=== PATIENT | male | born 1930 | race Caucasian/White ===

== ENCOUNTER 2016-09-30 13:00 | Outpatient (RCR) | payer MEDICARE, OTHER ==
--- OUTSIDE RECORDS SUMMARY | 2016-07-08 12:50 | XMS REPORT | Continuity of Care Document ---
Author Author [facility] Organization [facility] Address Unknown Phone Unavailable Care Team Providers Care Wrapper Stripper Name Role Phone Alan Ruvalcaba PCP [phone] Source Comments Some departments are not documenting in the electronic medical record. If you do not see the information that you expected, contact Release of Information in the Health Information Management department at [phone] for further assistance in locating additional records.[facility] Active Allergies and Adverse Reactions Not on File Current Medications Not on file Active Problems Not on file Social History Tobacco Use Types Packs/Day Years Used Date Never Assessed Plan of Care Health Maintenance Due Date Last Done Comments Physical (Comprehensive) 01/09/1935 Exam Pertussis Vaccine 01/09/1939 Tetanus Vaccine 01/09/1945 Shingles Vaccine 1988 Prevnar/Pneumovax (#1) 01/09/1993 Influenza Vaccine 04/24/2015 Results from Last 3 Months Not on file
== END 2016-10-06 | disposition home or self-care (01) ==
LOC: PULM 13:00
PROVIDERS: ATTEND Internal Medicine Interventional Cardiology
DX: J43.2 Centrilobular emphysema (principal); J96.10 Chronic respiratory failure, unspecified whether with hypoxia or hypercapnia; I27.2 Other secondary pulmonary hypertension

== ENCOUNTER 2017-03-10 09:58 | Inpatient (IN) | payer MEDICARE, OTHER ==
[~2017-03-10] VITALS: Ht 170.2 cm; Wt 101.9 kg
--- NOTE | 2017-03-11 15:09 | Physical Therapy Evaluation ---
PT Evaluation-General Medical Diagnosis Admission Date Mar 11, 2017 at 11:30 Medical Diagnosis: kyphoplasty Onset Date: Mar 06, 2017 Therapy Diagnosis Therapy Diagnosis: impaired mobility, strength, endurance Referral Physician: Pete Reason for Referral: Evaluation/Treatment Medical History Additional Medical History kyphoplasty, arthritis, ileus, emphysema, pulmonary hypertension Current History Patient had a spinal compression tx from a fall and had to get a kyphoplasty Reviewed History: Yes Social History Home: Single Level Current Living Status: Spouse Entry Into Home: Stairs With Railing PT Steps Into Home: 2 Prior/Core FIM Prior Level of Function Functional [place] Measure 0=Not Assessed/NA 4=Minimal Assistance 1=Total Assistance 5=Supervision or Setup 2=Maximal Assistance 6=Modified [place] 3=Moderate Assistance 7=Complete [place] Bed Mobility: 6 Transfers (B,C,W/C) (FIM): 6 Gait: 6 Patient used a rolling walker on occasion, outside of the home. PT Evaluation-Current Subjective Patient in bed pre tx, agrees to PT, has pain of 8/10 in his back. Patient will be 7/10 today. He has already had PT twice at another facility, has significant pain, and doesn't think he will be able to complete 3 hours of therapy. He also has emphysema, gets SOB easily (on O2), fatigues very quickly , and a pulse oximeter will not read his O2. Pt/Family Goals "to be able to do everything i need to do at home" Objective Patient Orientation: Person, Place, Situation Attachments: Oxygen 3L of O2 nasal canula ROM/Strength ROM Lower Extremities WNL except he has had a fusion in his left ankle Strenght Lower Extremities 4+/5 gross bilateral lower extremities except for hip flexion bilaterally 3+/5 Integumentary/Posture Bowel Incontinence: No Bladder Incontinence: No Neuromuscular (Tone, Coordination, Reflexes) WNL Sensory Vision: Functional Hearing: Impaired Sensation Right Lower Extremit: Intact Sensation Left Lower Extremity: Intact Sensation Lower Extremities Patient says he has had some burning pain in both legs. Transfers Functional [place] Measure 0=Not Assessed/NA 4=Minimal Assistance 1=Total Assistance 5=Supervision or Setup 2=Maximal Assistance 6=Modified [place] 3=Moderate Assistance 7=Complete IndependenceIRFPAI Quality Coding Scale 6 Independent with activity with or without an assistive device 5 Patient requires set up or clean up by helper. Patient completes activity by themselves 4 Supervision or touching assist (CGA). [place] provide cues , steadying assist 3 The helper provides less than half the effort to complete the activity 2 The helper provides more than half the effort to complete the activity 1 Dependent. The helper does all the effort to complete an activity 7 Patient refused to complete or attempt activity 9 The patient did not perform the activity before the current illness or injury 88 Not attempted due to Medical conditions or safety concerns Transfers (B, C, W/C) (FIM): 3 Scootin Rollin Roll Left to Right (QC): 3 Supine to/from Sit: 3 Sit to/from Stand: 4 Sit to Lying (QC): 2 Lying to Sitting/Side of Bed(Q: 2 Sit to Stand (QC): 4 Patient performs rolling and scooting with min assist, supine <-> sit with mod assist, and sit to stand with min assist. He needs cues for safety and hand placement. Patient does not have a back brace he needs to use. Gait Does the Patient Walk?: Yes Mode of Locomotion: Walk Anticipated Mode of Locomotion: Walk Gait (FIM): 4 Walk 10 feet (QC): 4 Walk 50 ft with 2 Turns(QC): 4 Walk 150 ft (QC): 4 Walking 10ft/uneven surface-QC: 4 Distance: 150' Gait Level of Assist: 4 Gait Persons Needed: 1 Gait Assistive Device: FWW Comments/Gait Description Patient can ambulate 150' with a rolling walker with CGA, including 50' with at least 2 turns of 90 degrees, and 10' over an uneven surface. Patient was very fatigued and fairly SOB after ambulating 150'. He needed to sit and catch his breath, the pulse oximeter would not read his O2 levels at that time. Wheelchair Training Does the Pt Use a Wheelchair?: No Stairs Stairs (FIM): 1 #of Steps: 1 Level of Assist: 4 1 Step (curb) (QC): 4 4 Steps (QC): 11 Assistive Device: Walker 12 Steps (QC): 88 Patient can go up and down 1 step x2 with a rolling walker with CGA. He needed cues for safety and foot placement, and was very SOB after performing that. Balance Sitting Static: Good Sitting Dynamic: Good Standing Static: Good Standing Dynamic: Good Picking up an Object (QC): 88 Assessment/Needs Patient has impaired mobility, strength, endurance post kyphoplasty after spinal compression fracture. He has some weakness in his legs but very poor endurance and gets SOB easily. Patient needs frequent rest breaks to catch his breath and cues to purse lip breathe. Rehab Potential: Fair PT Short Term Goals Short Term Goals Time Frame: Mar 18, 2017 Transfers (B,C,W/C) (FIM): 4 Gait (FIM): 5 Gait Distance Comment: 200' Gait Level of Assist: 5 Gait Assistive Device: FWW PT Senior Care Goals Weight Reduction Specialist Goals PT Weight Reduction Specialist Goals Time Frame: Apr 01, 2017 Transfers (B,C,W/C) (FIM): 6 Sit to Lying (QC): 6 Lying-Sitting on Side/Bed(QC): 6 Sit to Stand (QC): 6 Rollin Roll Left to Right (QC): 6 Chair/Ciw-qg-Mwzmj Xfer(QC): 6 Car Transfer (QC): 5 Gait (FIM): 6 Distance: 300' Walk 10 feet (QC): 6 Walk 10ft-Uneven Surface(QC): 6 Walk 50ft with 2 Turns (QC): 6 Walk 150 ft (QC): 6 Gait Assistive Device: FWW Stairs (FIM): 5 # of Steps: 12 1 Step (curb) (QC): 4 4 Steps (QC): 4 12 Steps (QC): 4 Stairs Level Of Assist: 5 PT Plan Problem List Problem List: Activity Tolerance, Functional Strength, Safety, Balance, Gait, Transfer, Bed Mobility, ROM Treatment/Plan Treatment Plan: Continue Plan of Care Treatment Plan: Bed Mobility, Education, Functional Activity Jose Guadalupe, Functional Strength, Group Therapy, Gait, Safety, Therapeutic Exercise, Transfers Treatment Duration: Apr 01, 2017 Frequency: At least 5-7 days/Wk (IRF) Estimated Hrs Per Day: 1.5 hours per day Patient and/or Family Agrees t: Yes Safety Risks/Education Patient Education: Gait Training, Transfer Techniques, Steps, Correct Positioning, Safety Issues Teaching Recipient: Patient Teaching Methods: Demonstration, Discussion Response to Teaching: Reinforcement Needed taught log roll Discharge Recommendations Plan Patient will perform bed mobility and transfer training, balance and endurance training, functional strengthening, stair training, gait training, and education , to improve functional mobility and independence at home. Therapy D/C Recommendations: Home w/ Family Support Time/GCodes Time In: 1400 Time Out: 1500 Total Billed Treatment Time: 60 Total Billed Treatment 1 visit GT 30' FA 15' EVL 15' SHAI KIM PT Mar 11, 2017 15:09
--- NOTE | 2017-03-11 15:44 | Occupational Therapy Eval ---
OT Evaluation-General/PLF Medical Diagnosis Admission Date Mar 11, 2017 at 11:30 Medical Diagnosis: kyphoplasty Onset Date: Mar 02, 2017 Therapy Diagnosis Therapy Diagnosis: decr self care, weakness, decr activ tolerance, decr funct mobility Precautions Precautions/Isolations: Standard Precautions Referral Physician: Pete Referral Reason: Evaluation/Treatment Medical History Pertinent Medical History: Atrial Fib, HTN, Neuropathy (in feet, pt report), OA Additional Medical History Pulmonary hypertension, emphysema, chronic respiratory failure with hypoxia, O2 use 3-5 L/min, CPAP, chronic DJD, MAURA with Bipap, spinal stenosis and spondylosis. Bilat TKA, pulmonary fibrosis Current History Fell 02-28-17 and admitted to [facility] on 03-02. Found to have compression fractures L1, L2 and L3. Had intractable back pain. Kyphoplasty (no back brace). Also developed ileus and had NG tube - resolved but has loose stools Social History Home: Single Level Current Living Status: Spouse Entry Into Home: Stairs With Railing Steps Into Home: 2 ADL-Prior Level of Function ADL PLOF Comments Pt reported that he has been able to manage his basic ADLS until just recently. He gave up driving after he blacked out a couple of times. He no longer does yard work. 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 Pain rated 8/10 but not described. Pt was very fatigued and said that he had already had therapy twice today. Appearance Alert, cooperative, very fatigued Mental Status/Objective Patient Orientation: Person, Place, Time, Situation Attachments: Oxygen Current Glasses/Contacts: Yes Hearing Aids: Yes Dentures/Partials: No Hand Dominance: Right Upper Extremity ROM Grossly WFL bilat Upper Extremity Coordination WFL bilat Upper Extremity Sensation Pt reported no neuropathy in UEs Upper Extremity Strength Grossly 4/5 bilat ADL-Treatment ADL-Current Pt needed min assist and skilled cues to get up from chair with arms. Walked with CGA, FWW from gym to room and needed to sit on BSC to recover breath. OT managing portable O2 tank. Pulse ox would not register but pt required frequent recovery breaks from SOA. O2 at 3L/min throughout treatment. Functional [place] Measure 0=Not Assessed/NA 4=Minimal Assistance 1=Total Assistance 5=Supervision or Setup 2=Maximal Assistance 6=Modified [place] 3=Moderate Assistance 7=Complete IndependenceIRFPAI Quality Coding Scale 6 Independent with activity with or without an assistive device 5 Patient requires set up or clean up by helper. Patient completes activity by themselves 4 Supervision or touching assist (CGA). [place] provide cues , steadying assist 3 The helper provides less than half the effort to complete the activity 2 The helper provides more than half the effort to complete the activity 1 Dependent. The helper does all the effort to complete an activity 7 Patient refused to complete or attempt activity 9 The patient did not perform the activity before the current illness or injury 88 Not attempted due to Medical conditions or safety concerns Toileting (FIM): 3 (Manages clothing but not hygiene. BSC over toilet) Toileting Hygiene (QC): 3 Transfers (B, C, W/C) (FIM): 4 (CGA, FWW) Toilet/Commode Transfer (FIM): 4 (CGA, BSC over toilet, FWW. Cues for hand placement. Would have difficulty getting off tall toilet because bathroom has grab bar only on R side) Toilet Transfer (QC): 4 Other Treatments Pt left up in recliner, O2 in place, all needs met. Education OT Patient Education: Purpose of tx/functional activities, Rehab process, Safety issues, Transfer techniques Teaching Recipient: Patient Teaching Methods: Demonstration, Discussion Response to Teaching: Verbalize Understanding, Return Demonstration, Reinforcement Needed OT Short Term Goals Short Term Goals Time Frame: Mar 20, 2017 Bathing(FIM): 5 Toilet/Commode Transfer(FIM): 5 Shower Transfer(FIM): 5 Additional Short Term Goals: 2-Verbalize Understanding, 3-ImproveStrength/Jose Guadalupe 1=Demonstrate adherence to instructed precautions during ADL tasks. 2=Patient will verbalize/demonstrate understanding of assistive devices/ modifications for ADL. 3=Patient will improve strength/tolerance for activity to enable patient to perform ADL's. OT Local Combination Truck Driver Goals Fdc Goals Time Frame: Apr 03, 2017 Eating (FIM): 7 Eating (QC): 6 Groomin Oral Hygiene (QC): 6 Bathing(FIM): 6 Shower/Bathe Self (QC): 6 Upper Body Dressing(FIM): 6 Upper Body Dressing (QC): 6 Lower Body Dressing(FIM): 6 Lower Body Dressing (QC): 6 On/Off Footwear (QC): 6 Toileting(FIM): 6 Toileting Hygiene (QC): 6 Toilet/Commode Transfer(FIM): 6 Toilet/Commode Transfer (QC): 6 Shower Transfer(FIM): 6 Additional Goals: 2-Verbalize Understanding, 3-ImproveStrength/Jose Guadalupe 1=Demonstrate adherence to instructed precautions during ADL tasks. 2=Patient will verbalize/demonstrate understanding of assistive devices/ modifications for ADL. 3=Patient will improve strength/tolerance for activity to enable patient to perform ADL's. OT Education/Plan Problem List/Assessment Assessment: Decreased Activ Tolerance, Decreased UE Strength, Dependent Transfers, Impaired Bed Mobility, Impaired Self-Care Skills Pt would benefit from skilled OT to increase his independence in basic self care to allow him to safely return home with and to decrease caregiver burden Discharge Recommendations Plan/Recommendations: Continue POC Barriers to Progress decreased activity tolerance, frequent recovery periods, chronic O2 use, peripheral neuropathy Target Placement home Treatment Plan/Plan of Care Treatment,Training & Education: Yes Patient would benefit from OT for education, treatment and training to promote independence in ADL's, mobility, safety and/or upper extremity function for ADL' s. Plan of Care: ADL Retraining, Functional Mobility, Group Exercise/Act as Ind ( education, exercise, activity tolerance, functional activities, socialization), UE Funct Exercise/Act, UE Neuromus Re-Ed/Coord Treatment Duration: Apr 03, 2017 Frequency: Twice Daily (15 hours over 7 days) Estimated Hrs Per Day: 1.5 hours per day Agreement: Yes Rehab Potential: Fair Time/GCodes Start Time: 15:00 Stop Time: 15:30 Total Time Billed (hr/min): 30 Billed Treatment Time visit, 15 minutes evaluation moderate intensity, 15 minutes ADL DASIA DENNIS OT Mar 11, 2017 15:44
--- NOTE | 2017-03-11 15:49 | ST Cognitive Linguistic Eval ---
Speech Evaluation-General Medical Diagnosis Kyphoplasty Onset Date: Mar 06, 2017 Therapy Diagnosis Therapy Diagnosis: Cognitive Linguistic Skills Grossly WNL Referral Referring Physician: Dr. Sami Freeman Reason for Referral: Evaluation/Treatment Cognitive Evaluation Medical History Reviewed History: Yes Social History Home: Single Level (Two stairs to enter the home from the front and two stairs to enter the home through the back.) Current Living Status: Spouse Speech PLF-Current Status Prior Level of Function The patient denied challenges with speech, language, or cognition prior to or throughout his recent hospitalization. Patient's was present for the evaluation who stated the patient is performing at baseline function. Subjective The patient was recently admitted to [facility] following a kyphoplasty. The patient greeted the clinician appropriately and was agreeable to participation in the cognitive evaluation. Language Eval: Auditory Comprehends Simple Yes/No Ques: Functional Indent/Objects Multiple Sharp: Functional Ident/Pics in Multiple Sharp: Functional Follows 1-Step Commands: Functional Follows Complex Directions: Functional Follows General Conversations: Functional (Intermittent repetition was provided due to reduced hearing ability.) Language Eval: Verbal Language Completes Spontaneous Greeting: Functional Produces Auto, Serial Info: Functional Imitates Simple Words/Phrases: Functional Word Finding: Mild Requests Basic Needs: Functional States Basic Personal Info: Functional Cognitive Patient Orientation The patient was oriented to month, day of week, date, year, and location ( independently). Objective Cognitive Domain Attention: WNL Memory: Mild Problem Solving: Functional Objective Impression The patient demonstrated cognitive linguistic skills grossly within normal limits for age, as well as, appropriate for completion of ADL's. Communication/Social Cognition Comprehension: 5 Expression: 5 Social Interaction: 6 Problem Solvin Memory: 5 Speech Patient Assess Expression of Ideas/Wants: Exhibits (3) Understanding Vebal Content: Usually Understands (3) Brief Interview-Mental Status: Yes Repetition of Three Words: Three (3) Temporal Orientation: Year: Correct (3) Temporal Orientation: Month: Accurate within 5 days(2) Temporal Orientation: Day: Correct (1) Recall : Wear to say "Sock": Yes,after cueing (1) Recall : Color: Yes, no cue required (2) Recall : Bed: Yes, no cue required (2) Speech-Plan Treatment Plan Speech Therapy Treatment Plan: Discontinue ST Evaluation, only. Frequency: Modified Program (IRF) Estimated Hrs Per Day: .25 hour per day (The patient will not receive speech therapy at this time.) Rehab Potential: Fair Safety Risks/Education Teaching Recipient: Patient, Significant Other Teaching Methods: Discussion Response to Teaching: Verbalize Understanding Education Topics Provided: Results, Recommendations, Plan of Care Time Speech Therapy Time In: 15:30 Speech Therapy Time Out: 15:45 Total Billed Time: 15 Billed Treatment Time 1, LYNNE DE LEON Mar 11, 2017 15:49
[2017-03-11] MEDS: HYDROcodone/APAP 5 MG/325 MG (LORTAB) TAB PO PRN (16:04)
[2017-03-11 16:08] VITALS: BP 143/89
[2017-03-11] MEDS ORDERED: ASPI-983 PO (16:11)
[2017-03-11] MEDS ORDERED: MULT1TAB69 PO (16:11)
[2017-03-11] MEDS ORDERED: POTA10TA14 PO (16:11)
[2017-03-11] MEDS ORDERED: POLY17PO6 PO (16:11)
[2017-03-11] MEDS ORDERED: DIGO125T6 PO (16:11)
[2017-03-11] MEDS ORDERED: QUET25TA73 PO (16:11)
[2017-03-11] MEDS ORDERED: NF-ACI30T PO (16:11)
[2017-03-11] MEDS ORDERED: OMEG-160 PO (16:11)
[2017-03-11] MEDS ORDERED: DOCU100C37 PO (16:11)
[2017-03-11] MEDS ORDERED: HYDR-757 PO (16:11)
[2017-03-11] MEDS ORDERED: FURO40TA4 PO (16:11)
[2017-03-11] MEDS ORDERED: ATEN-156 PO (16:11)
[2017-03-11] MEDS ORDERED: MELO7.5T46 PO (16:11)
[2017-03-11] MEDS: OMEGA 3 (FISH OIL) 1000 MG CAP PO SCH (16:12)
[2017-03-11] MEDS ORDERED: PRD10T PO (16:41)
[2017-03-11] MEDS ORDERED: FUROSEMIDE 40 MG (LASIX) TAB PO SCH (17:00)
[2017-03-11] MEDS: QUEtiapine 25 MG (SEROquel) TAB IMMEDIATE RELEASE PO SCH (20:23)
[2017-03-11] MEDS: DOCUSATE SODIUM 100 MG (COLACE) CAP PO SCH (22:13)
[2017-03-11] MEDS: POLYETHYLENE GLYCOL 17 GM (MIRALAX) PACK PO SCH (22:14)
[2017-03-12] MEDS: HYDROcodone/APAP 5 MG/325 MG (LORTAB) TAB PO PRN ×3 (05:24→16:25)
[2017-03-12 05:44] VITALS: BP 116/67
[2017-03-12 05:59] LABS: BASOPHILS % (AUTO) 1 % (0-10); EOSINOPHILS # (AUTO) 0.2 10^3/uL (0.0-0.3); EOSINOPHILS % (AUTO) 2 % (0-10); LYMPHOCYTES # (AUTO) 0.9 X 10^3 (1.0-4.0); LYMPHOCYTES % (AUTO) 12 % (12-44); MEAN CORPUSCULAR HEMOGLOBIN 31 PG (25-34); MEAN CORPUSCULAR HGB CONC 34 G/DL (32-36); MEAN CORPUSCULAR VOLUME 92 FL (80-99); MEAN PLATELET VOLUME 10.4 FL (7.4-10.4); MONOCYTES # (AUTO) 1.3 X 10^3 (0.0-1.0); MONOCYTES % (AUTO) 18 % (0-12); NEUTROPHILS # (AUTO) 4.8 X 10^3 (1.8-7.8); NEUTROPHILS % (AUTO) 67 % (42-75); PLATELET COUNT 278 10^3/uL (130-400); RED BLOOD COUNT 4.72 10^6/uL (4.35-5.85); RED CELL DISTRIBUTION WIDTH 16.6 % (10.0-14.5); WHITE BLOOD COUNT 7.2 10^3/uL (4.3-11.0)
[2017-03-12 06:16] LABS: ALANINE AMINOTRANSFERASE 21 U/L (0-55); ALBUMIN 3.8 GM/DL (3.2-4.5); ANION GAP 10 MMOL/L (5-14); ASPARTATE AMINO TRANSFERASE 20 U/L (5-34); BILIRUBIN,TOTAL 1.9 MG/DL (0.1-1.0); BLOOD UREA NITROGEN 14 MG/DL (7-18); BUN/CREATININE RATIO 18; CALCIUM 9.1 MG/DL (8.5-10.1); CARBON DIOXIDE 23 MMOL/L (21-32); CHLORIDE 106 MMOL/L (98-107); GFR ESTIMATED > 60; GLUCOSE 105 MG/DL (70-105); SODIUM 139 MMOL/L (135-145); TOTAL PROTEIN 6.3 GM/DL (6.4-8.2)
[2017-03-12] MEDS: MULTIVIT W/MINERALS TAB (THERAGRAN M) PO SCH (06:18)
[2017-03-12] MEDS: OMEGA 3 (FISH OIL) 1000 MG CAP PO SCH ×2 (06:18→16:21)
[2017-03-12] MEDS: PANTOPRAZOLE 20 MG TABLET (PROTONIX) PO SCH (06:19)
[2017-03-12] MEDS: predniSONE 10 MG TAB PO SCH (06:19)
[2017-03-12] MEDS: KCL 10 MEQ TAB (MICRO K) PO SCH (06:20)
--- NOTE | 2017-03-12 08:18 | Consultation ---
History of Present Illness History of Present Illness Patient Consulted On(isaías/time) 03/12/17 08:13 Time Seen by Provider: 08:05 History of Present Illness patient sent to rehabilitation from [facility] after falling at home. Patient has COPD and on oxygen. Patient fell over his tubing last Thursday and went forward and hit a chair and landed backwards. After that had back pain which did not go away. Patient has history of pulmonary hypertension and is on oxygen therapy 3-5 L continuous. Patient has history of atrial fibrillation and was on Coumadin. Spanish Speaking Nanny making decision whether to put him on blood thinner. Surgeries.. Bowel resection due to a ruptured polyp, appendectomy, both knees , left hip, and tonsils Allergies and Home Medications Allergies Coded Allergies: Benzodiazepines (Verified Adverse Reaction, Intermediate, 03/11/17) confusion midazolam (Verified Adverse Reaction, Intermediate, 03/11/17) confusionj Home Medications Aspirin 81 Mg Tablet.dr, 81 MG PO DAILY, (Reported) Atenolol 50 Mg Tablet, 50 MG PO DAILY, (Reported) Digoxin 125 Mcg Tablet, 125 MCG PO DAILY, (Reported) Docusate Sodium 100 Mg Capsule, 100 MG PO BID, (Reported) Furosemide 40 Mg Tablet, 40 MG PO BID, (Reported) Hydrocodone/Acetaminophen 1 Each Tablet, 1 TAB PO Q4H PRN for PAIN-MODERATE, ( Reported) Meloxicam 7.5 Mg Tablet, 7.5 MG PO DAILY, (Reported) Multivitamin 1 Each Tablet, 1 TAB PO DAILY, (Reported) [place]-3/Dha/Epa/Fish Oil 1 Each Capsule, 1,000 MG PO BID, (Reported) Polyethylene Glycol 3350 17 Gm Powd.pack, 17 GM PO DAILY, (Reported) Potassium Chloride 10 Meq Tab.er.prt, 10 MEQ PO DAILY, (Reported) Prednisone 10 Mg Tab, 10 MG PO Q48H, (Reported) Quetiapine Fumarate 25 Mg Tablet, 25 MG PO HS, (Reported) Rabeprazole Sodium 20 Mg Tablet.dr, 20 MG PO DAILY, (Reported) Past Uoeyhma-Elphoo-Obgbgt Hx Patient Social History Alcohol Use: Denies Use Recreational Drug Use: No Smoking Status: Former Smoker Recent Foreign Travel: No Contact w/Someone Who Travel: No Recent Infectious Disease Expo: No Recent Hopitalizations: Yes Physical Abuse Screen: No Sexual Abuse: No Immunizations Up To Date Date of Pneumonia Vaccine: Mar 11, 2014 Seasonal Allergies Seasonal Allergies: No Surgeries Surgeries: Bowel Surgery, Orthopedic, Tonsillectomy Respiratory Respiratory Disorders: Sleep Apnea, COPD, Emphysema Cardiovascular Cardiac Disorders: Atrial Fibrillation Musculoskeletal Musculoskeletal Disorders: Arthritis, Back Injury HEENT HEENT Disorders: Cataract Hearing Impairment: Hard of Hearing Blood Transfusions Adverse Reaction to a Blood Tr: No Review of Systems-General Constitutional: weakness EENTM: no symptoms reported Respiratory: no symptoms reported Cardiovascular: other (atrial fibrillation) Gastrointestinal: no symptoms reported Genitourinary: no symptoms reported Psychiatric/Neurological: No Symptoms Reported Physical Exam-General Problems Physical Exam Vital Signs Vital Sign - Last 12Hours 03/11/17 03/11/17 14:17 16:08 Temp 97.8 Pulse 83 Resp 20 B/P (MAP) 143/89 Pulse Ox 97 O2 Delivery Nasal Cannula O2 Flow Rate 3.00 Capillary Refill : General Appearance: WD/WN, no apparent distress, obese Eyes: Bilateral Eye Normal Inspection HEENT: normal ENT inspection Neck: full range of motion, normal inspection Respiratory: chest non-tender, no respiratory distress, no accessory muscle use , decreased breath sounds, other (cOPD) Cardiovascular: irregularly irregular, other (Atrial fibrillation) Assessment/Plan Assessment/Plan Admission Diagnosis/Plan compression fracture. Atrial fibrillation. COPD using oxygen L1 compression fracture . Clinical Quality Measures DVT/VTE Risk/Contraindication: Risk Factor Score Per Nursin RFS Level Per Nursing on Admit: 4+=Very High MIKO KELLY DO Mar 12, 2017 08:18
--- NOTE | 2017-03-12 08:33 | PM&R Post Admission Assessment ---
Post Admission Physician Asses The preadmission screen agrees with the post admission assessment that the patient is a good candidate for inpatient rehabilitation. The patient will have a comprehensive program of inpatient rehabilitation with a goal of maximizing level of functional independence prior to discharge home with spouse. The patient will have PT/OT ninety minutes per day, each discipline, five days a week for gait, strengthening, conditioning, balance, ADLs, any patient/family/caregiver training as necessary. Speech therapy to do cognitive assessment and treat as indicated. Rehabilitation nursing to assist with bowel, bladder, skin, wound care, medication administration, pain management. Manager Database to assist with discharge planning, community reentry. SCD's for DVT prophylaxis. He appears to be well motivated to participate in three hours of therapy a day. He should be able to tolerate three hours of therapy a day from a medical and surgical standpoint. He should benefit from the three hours of therapy a day. He has a reasonable discharge plan, reasonable discharge rehabilitation goals and a supportive family. He has various comorbidities that need to be closely monitored with medications and treatments adjusted on a daily basis as needed. These include: Pain management Chronic A FIB HTN Pulmonary fibrosis-02 dependent OA Barriers to discharge for this patient who had been independent prior to this are for him to be modified independent to supervision for ADLs and mobility skills prior to discharge home with spouse, so as to lessen the burden of the caregivers. Risks for this patient include: 1. Fall 2. Fracture 3. DVT 4. Pulmonary embolism 5. Wound infection 6. Skin breakdown 7. Contractures 8. Poorly controlled pain 9. Urinary retention 10. UTI 11. Respiratory infection 12. Aspiration 13. Resp failure 14. Poorly controlled A FIB 15. Poorly controlled HTN Estimated Length of Stay: 14 days Prognosis: Rehab prognosis appears good for goal of discharge home with spouse modified independent to supervision for ADLs and mobility skills. ROSI RODRIGES MD Mar 12, 2017 08:33
[2017-03-12] MEDS: MELOXICAM 7.5 MG (MOBIC) TABLET PO SCH (08:41)
[2017-03-12] MEDS: DIGOXIN 0.125 MG (LANOXIN) TAB PO SCH (08:42)
[2017-03-12] MEDS: ASPIRIN E.C. 81 MG (ECOTRIN) TAB PO SCH (08:42)
[2017-03-12] MEDS: FUROSEMIDE 40 MG (LASIX) TAB PO SCH (08:42)
[2017-03-12] MEDS: ATENOLOL 50 MG (TENORMIN) TAB PO SCH (08:42)
[2017-03-12] MEDS: DOCUSATE SODIUM 100 MG (COLACE) CAP PO SCH ×2 (08:43→16:21)
[2017-03-12 08:47] LABS: KETONES,URINE NEGATIVE (NEGATIVE); LEUKOCYTE ESTERASE ,URINE 1+ (NEGATIVE); NITRITE,URINE NEGATIVE (NEGATIVE); PH,URINE 5 (5-9); PROTEIN,URINE 2+ (NEGATIVE); UROBILINOGEN,URINE 4 MG/DL (NORMAL)
[2017-03-12] MEDS: ZINC OXIDE 16% OINT (BUTT PASTE) 113 GM TUBE TOP PRN (08:51)
[2017-03-12 09:18] LABS: BILIRUBIN,URINE 1+ (NEGATIVE); CALCIUM OXALATE CRYSTALS,UR MODERATE /LPF; SQUAMOUS EPITHELIAL CELL,UR 0-2 /HPF
--- NOTE | 2017-03-12 10:41 | HISTORY AND PHYSICAL ---
DATE OF ADMISSION: 03/11/2017 CHIEF COMPLAINT: Difficulty with walking. HISTORY OF PRESENT ILLNESS: The patient is an 87-year-old male who had been modified independent with a Rollator walker and living with his in [place], who fell at home and developed intractable back pain. He was assessed by his PCP Dr. العراقي and admitted to [facility] on 03/[address] Black after imaging studies revealed an L1 compression fracture. He underwent kyphoplasty for that. He had a decline in his functional independence due to this and he is now referred to Inpatient Rehabilitation Unit at [facility] so as to be closer to home. He is utilizing hydrocodone APAP p.r.n. for pain control. Currently he is mod assist for upper, transfers and min assist for ambulation short distances with a front wheel walker. To min to mod assist for bed mobility. He is modified independent for eating. Set up for grooming. Min assist for upper body dressing. Mod assist for lower body dressing and toileting. He reports having tripped over his O2 tether line at home causing his fall. PAST MEDICAL HISTORY: 1. Pulmonary fibrosis. 2. Pulmonary hypertension. 3. O2 dependence and MAURA on BiPAP at night. 4. Degenerative joint disease. 5. Hypertension. 6. Idiopathic peripheral neuropathy with numbness of feet. 7. Atrial fibrillation had been chronically anticoagulated with Dr. العراقي just recently discontinued due to fear for fall and weight. His adobe layer helper is at [facility]. PAST SURGICAL HISTORY: Kyphoplasty.Bilateral TKRS [facility] ALLERGIES: Intolerance to Versed and benzodiazepines causing confusion. FAMILY HISTORY: Noncontributory. 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 He also had postoperative ileus and had an NG tube for treatment of that, this is resolved but he complains of loose stools. MEDICATIONS: 1. ASA 81 mg p.o. daily. 2. Atenolol 50 mg p.o. daily. 3. Digoxin 0.125 mg p.o. daily. 4. Multivitamins with minerals 1 tablet p.o. daily. 5. AcipHex 20 mg p.o. daily. 6. Mobic 7.5 mg p.o. daily. 7. Fish oil 1000 mg p.o. b.i.d. 8. KCL 10 mEq p.o. daily. 9. Furosemide 40 mg p.o. daily. 10. Prednisone 10 mg p.o. daily. 11. Seroquel 25 mg p.o. every evening, which he takes so he can tolerate his BiPAP mask. 12. Colace 100 mg p.o. b.i.d. 13. Hydrocodone APAP 5/325, 1 tablet p.o. q.4 hours p.r.n. moderate pain. 14. MiraLax 17 grams p.o. daily PHYSICAL EXAMINATION: Significant for a pleasant male somewhat obese, appearing his stated age, alert and oriented in no acute distress. VITAL SIGNS: He is afebrile. Pulse is 83, respirations 20, blood pressure 143/89. O2 sat 98% on 4 liters of O2 by nasal cannula. HEENT: He is somewhat hard of hearing but has functional hearing. Vision and speech grossly intact. No oral lesion is noted. NECK: Supple without mass. HEART: Regular rhythm. LUNGS: Clear. ABDOMEN: Soft, obese, firm, nontender. Bowel sounds diminished. EXTREMITIES: No lower leg edema. No calf tenderness. MUSCULOSKELETAL: The patient has functional passive range of motion in all 4 extremities except for fsuion left ankle. NEUROLOGIC: He does report some numbness, burning in his feet but sensation is grossly intact to touch in all 4 limbs. Strength is a 4+/5 in the lower extremity except for hip flexion which is 3+/5. Strength both upper extremity 4+/5. He is reported to be continent of bowel and bladder. Cognition is grossly intact. 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 status post fall with resulting compression fracture L1, status post kyphoplasty Dr. Black [facility] in [place], [place]. 2. Pulmonary fibrosis, O2 dependent. 3. MAURA on BiPAP at night. 4. 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 5. Hypertension, controlled with medication. 6. Chronic atrial fibrillation, currently off Coumadin 7. Pulmonary hypertension . 8. Osteoarthritis. 9. Postoperative ileus resolved. 10. Osteoarthritis, status post bilateral total knee replacements, remote. 11. Chronic steroid usage PLAN: The patient will have a comprehensive program of inpatient rehabilitation with a goal of maximizing level of functional independence prior to discharge home with spouse who presents to the unit with patient. The patient will have PT/OT 90 minutes per day, each discipline, 5 days week for gait, strengthening, conditioning, balance, energy conservation, any patient/family/caregiver training necessary, ADL training, any adaptive equipment and training as necessary. Speech therapy to do cognitive assessment and treat as indicated. Respiratory therapy to assist with O2 administration, monitoring O2 sats, assisting with BiPAP machine, which patient has brought with him from home. Rehabilitation nursing to assist with bowel, bladder, skin care, medication administration, pain management. special services coordinator to assist with discharge planning, community reentry. Check admission labs in a.m. Consult Dr. Patricia to assist with medical management for this out of town patient. The patient's spouse requested that furosemide be decreased to once a day as per home regimen so ordered. Also that the patient's adobe layer helper at [facility] be informed that Coumadin has now been discontinued due to fall risk. We will so inform adobe layer helper at [facility] /discussed case with nursing. ESTIMATED LENGTH OF STAY: Two weeks. PROGNOSIS: Rehab prognosis appears good for goal of discharging home with spouse, modified independent to supervision for ADLs and mobility skills. DIET: Regular. CODE STATUS: The patient requests DNI. Therapy scheduled to be 03/07 or 15 hours over 7 days for the first week, see orders. Job ID: [id number] Dictated Date: 03/11/2017 20:36:34 Market Analyst Date: 03/12/2017 09:55:04/radha RIVAS
--- NOTE | 2017-03-12 11:58 | Occupational Ther Daily Note ---
OT Current Status-Daily Note Subjective Pt seen in room, up in recliner, agreeable to OT. Said he didn't sleep at all last night and pain was "up there". Nsg gave pain meds Appearance Alert, cooperative Mental Status/Objective Functional [place] Measure 0=Not Assessed/NA 4=Minimal Assistance 1=Total Assistance 5=Supervision or Setup 2=Maximal Assistance 6=Modified [place] 3=Moderate Assistance 7=Complete [place] ADL-Treatment O2 was in place throughout tx. O2 sats generally 95% with O2 at 3L/m or up to 5L /min per patient request 9he said he generally turns O2 up for activity). Required frequent and prolonged recovery breaks between steps of ADLs and between ADLS due to being short of air. All ADLs took longer than usual due to frequent recovery periods and fatigue. Pt did continue with all ADLs because he knew he would have time to rest before PT. Functional [place] Measure 0=Not Assessed/NA 4=Minimal Assistance 1=Total Assistance 5=Supervision or Setup 2=Maximal Assistance 6=Modified [place] 3=Moderate Assistance 7=Complete IndependenceIRFPAI Quality Coding Scale 6 Independent with activity with or without an assistive device 5 Patient requires set up or clean up by helper. Patient completes activity by themselves 4 Supervision or touching assist (CGA). [place] provide cues , steadying assist 3 The helper provides less than half the effort to complete the activity 2 The helper provides more than half the effort to complete the activity 1 Dependent. The helper does all the effort to complete an activity 7 Patient refused to complete or attempt activity 9 The patient did not perform the activity before the current illness or injury 88 Not attempted due to Medical conditions or safety concerns Eating (FIM): 5 (Per nursing, setup) Eating (QC): 5 (per nursing) Grooming (FIM): 5 (SBA standing at sink to brush teeth and comb hair. FWW. Washed face and hands in shower. Has electric razor but chose not to use it today) Oral Hygiene (QC): 4 (SBA) Bathing (FIM): 4 (Washed and dried all parts exept back and bottom. Stood SBA to wash bottom, using shower bench, grab bar. Also used hand held shwoer) Shower/Bathe Self (QC): 3 Upper Body (FIM): 5 (Setup. Able to doff and don shirt) Upper Body Dressing (QC): 5 Lower Body Dressing (FIM): 3 (Difficulty getting socks off. Unable to don socks or shoes. Pt educ use of sock aid for energy conservation but he did not feel that it saved him any energy because it was difficult to get off feet. Difficulty bending over due to tummy size. Stood SBA with FWW and recalled hand placement - needed help to get underwear and shorts over bottom) Lower Body Dressing (QC): 3 On/Off Footwear (QC): 2 (Got socks off but unable to don socks or shoes) Shower Transfer(FIM): 4 (CGA, shower bench, grab bar, FWW. Cues for technique, walker placement) Education OT Patient Education: Energy conservation, Modified ADL techniques, Progress toward Goal/Update tx plan, Purpose of tx/functional activities, Transfer techniques, Use of adapted equipment Teaching Recipient: Patient Teaching Methods: Demonstration, Discussion Response to Teaching: Verbalize Understanding, Return Demonstration, Reinforcement Needed OT Short Term Goals Short Term Goals Time Frame: Mar 20, 2017 Bathing(FIM): 5 Toilet/Commode Transfer(FIM): 5 Shower Transfer(FIM): 5 Additional Short Term Goals: 2-Verbalize Understanding, 3-ImproveStrength/Jose Guadalupe 1=Demonstrate adherence to instructed precautions during ADL tasks. 2=Patient will verbalize/demonstrate understanding of assistive devices/ modifications for ADL. 3=Patient will improve strength/tolerance for activity to enable patient to perform ADL's. OT Plant Breeder Goals Plant Breeder Goals Time Frame: Apr 03, 2017 Eating (FIM): 7 Eating (QC): 6 Groomin Oral Hygiene (QC): 6 Bathing(FIM): 6 Shower/Bathe Self (QC): 6 Upper Body Dressing(FIM): 6 Upper Body Dressing (QC): 6 Lower Body Dressing(FIM): 6 Lower Body Dressing (QC): 6 On/Off Footwear (QC): 6 Toileting(FIM): 6 Toileting Hygiene (QC): 6 Toilet/Commode Transfer(FIM): 6 Toilet/Commode Transfer (QC): 6 Shower Transfer(FIM): 6 Additional Goals: 2-Verbalize Understanding, 3-ImproveStrength/Jose Guadalupe 1=Demonstrate adherence to instructed precautions during ADL tasks. 2=Patient will verbalize/demonstrate understanding of assistive devices/ modifications for ADL. 3=Patient will improve strength/tolerance for activity to enable patient to perform ADL's. OT Education/Plan Problem List/Assessment Pt would benefit from skilled OT to increase his independence in basic self care to allow him to safely return home with and to decrease caregiver burden Discharge Recommendations Plan/Recommendations: Continue POC Treatment Plan/Plan of Care Patient would benefit from OT for education, treatment and training to promote independence in ADL's, mobility, safety and/or upper extremity function for ADL' s. Plan of Care: ADL Retraining, Functional Mobility, Group Exercise/Act as Ind ( education, exercise, activity tolerance, functional activities, socialization), UE Funct Exercise/Act, UE Neuromus Re-Ed/Coord Treatment Duration: Apr 03, 2017 Frequency: Twice Daily (15 hours over 7 days) Estimated Hrs Per Day: 1.5 hours per day Agreement: Yes Rehab Potential: Fair Time/GCodes Start Time: 09:00 Stop Time: 10:30 Total Time Billed (hr/min): 90 Billed Treatment Time visit, 90 minutes ADL DASIA DENNIS OT Mar 12, 2017 11:58
--- NOTE | 2017-03-12 12:29 | Physical Therapy Daily Note ---
PT Daily Note-Current Subjective Pt sitting in recliner upon arrival. Pt reports significant pain but Nurse advised had just given pain med approx. 30 mins. before and that was as much as pt could have right then. Pt agrees to PT if pt can rest as needed. Pain Numeric Pain Scale: 10-Worst Possible Pain Location: Medial, Dorsal Location Body Site: Back Pain Description: Tightness, Sharp Mental Status Patient Orientation: Person, Place, Situation Pt reports having no back brace. Transfers Functional [place] Measure 0=Not Assessed/NA 4=Minimal Assistance 1=Total Assistance 5=Supervision or Setup 2=Maximal Assistance 6=Modified [place] 3=Moderate Assistance 7=Complete IndependenceIRFPAI Quality Coding Scale 6 Independent with activity with or without an assistive device 5 Patient requires set up or clean up by helper. Patient completes activity by themselves 4 Supervision or touching assist ([facility]). [place] provide cues , steadying assist 3 The helper provides less than half the effort to complete the activity 2 The helper provides more than half the effort to complete the activity 1 Dependent. The helper does all the effort to complete an activity 7 Patient refused to complete or attempt activity 9 The patient did not perform the activity before the current illness or injury 88 Not attempted due to Medical conditions or safety concerns Scootin Sit to/from Stand: 5 Sit to Stand (QC): 5 Weight Bearing Weight Bearing Restriction: Full Weight Bearing Location Restriction: LE Bilateral Gait Training Does the Patient Walk?: Yes Distance (FIM): 6=414-60 ft Distance: 125' Walk 10 feet (QC): 4 Walk 50 ft with 2 Turns(QC): 4 Gait Level of Assist: 4 Gait Persons Needed: 1 Gait Assistive Device: FWW Pt's gait is slow and antalgic due to back pain. Exercises Seated Therapy Exercises: Ankle pumps, Sit to stand, Long arc quads, Hip flexion, Kicking activity, Hip abd/add Seated Reps: 15 Treatments Pt transfers from recliner to standing using FWW at [facility]. Pt ambulated in hallway using FWW at [facility]. Pt completed Seated Ex in chair with several rest breaks due to fatigue and pain. Pt also completed sit to stands from chair. Pt ambulated back to room to rest in recliner at end of tx with all needs met. Pt was ordering lunch. Assessment Current Status: Fair Progress Pt is in significant pain and fatigues easy during tx. PT Short Term Goals Short Term Goals Time Frame: Mar 18, 2017 Gait (FIM): 5 Gait Distance Comment: 200' Gait Level of Assist: 5 Gait Assistive Device: FWW PT Infant And Toddler Teacher Goals Senior Living Goals PT Senior Living Goals Time Frame: Apr 01, 2017 Transfers (B,C,W/C) (FIM): 6 Sit to Lying (QC): 6 Lying-Sitting on Side/Bed(QC): 6 Sit to Stand (QC): 6 Rollin Roll Left to Right (QC): 6 Chair/[id number] Xfer(QC): 6 Car Transfer (QC): 5 Gait (FIM): 6 Distance: 300' Walk 10 feet (QC): 6 Walk 10ft-Uneven Surface(QC): 6 Walk 50ft with 2 Turns (QC): 6 Walk 150 ft (QC): 6 Gait Assistive Device: FWW Stairs (FIM): 5 # of Steps: 12 1 Step (curb) (QC): 4 4 Steps (QC): 4 12 Steps (QC): 4 Stairs Level Of Assist: 5 PT Plan Problem List Problem List: Activity Tolerance, Functional Strength, Safety, Balance, Gait, Transfer, Bed Mobility Treatment/Plan Treatment Plan: Continue Plan of Care Treatment Plan: Bed Mobility, Education, Functional Activity Jose Guadalupe, Functional Strength, Group Therapy, Gait, Safety, Therapeutic Exercise, Transfers Treatment Duration: Apr 01, 2017 Frequency: At least 5-7 days/Wk (IRF) Estimated Hrs Per Day: 1.5 hours per day Patient and/or Family Agrees t: Yes Safety Risks/Education Patient Education: Gait Training, Transfer Techniques, Reviewed Precautions, Correct Positioning, Safety Issues Teaching Recipient: Patient Teaching Methods: Discussion Response to Teaching: Verbalize Understanding Time/GCodes Time In: 1115 Time Out: 1215 Total Billed Treatment Time: 60 Total Billed Treatment visit, GT (15m), FA (15m) & EX x2 (30m) CHINYERE STAUFFER PTA Mar 12, 2017 12:29
--- NOTE | 2017-03-12 14:40 | Therapy Group Daily Note ---
Therapy Daily Group Note Patient Education Topic Exercises, Other List Below (Memory Strategies) Exercises LE Seated Exercise, UE Exercise Other/Notes Pt walked to PT/OT Group in Therapy Gym using FWW at [facility]. Group consisted of Introductions (Name, Where you grew up & Favorite Childhood Game/Boardgame), Memorization Techniques and Strategies, Seated UE & LE Exercises and Memory Activity. Pt actively participated in Group by verbally giving answers when asked questions as well as participating in UE & LE Exercises. Pt walked back to room using FWW at the end of Group to rest and also used the restroom. Pt is resting in recliner with all needs met at the end of Group. Start Time: 13:00 Stop Time: 14:15 Total Billed Treatment Time: 75 Total Billed Treatment 1, GRP CHINYERE STAUFFER POWER BENDER OPERATOR Mar 12, 2017 14:40
--- NOTE | 2017-03-12 15:52 | PM & R (SOAP) Progress Note ---
Subjective Time Seen by Provider: 08:15 Subjective/Events-last exam Patient was seen in his room this AM Adjusting well to unit Patient SBA for transfers Min assist for gait with walker Labs and therapy notes reviewed, Patient c/o breakthrough pain Pain med dosage adjusted Review of Systems Musculoskeletal: back pain Objective Exam Last Set of Vital Signs Vital Signs Date Time Temp Pulse Resp B/P (MAP) Pulse Ox O2 Delivery O2 Flow Rate FiO2 03/12/17 15:39 Nasal Cannula 3.00 03/12/17 05:44 97.3 60 20 116/67 99 Capillary Refill : I&O Bad tableGeneral: Alert, Oriented X3, Cooperative, No Acute Distress HEENT: Atraumatic, PERRLA, EOMI, Mucous Memb Moist/[place], Other (02 by N/C in place) Neck: Supple, No JVD Lungs: Clear to Auscultation Heart: Regular Rate Abdomen: Normal Bowel Sounds, Soft, No Tenderness Extremities: No Edema Neuro: Sensation Intact, Other (strength 4+/5 except hip flexion 3+/5 Left ankle fused) Results Lab Laboratory Tests 03/12/17 05:32: White Blood Count 7.2, Red Blood Count 4.72, Hemoglobin 14.5, Hematocrit 43, Mean Corpuscular Volume 92, Mean Corpuscular Hemoglobin 31, Mean Corpuscular Hemoglobin Concent 34, Red Cell Distribution Width 16.6H, Platelet Count 278, Mean Platelet Volume 10.4, Neutrophils (%) (Auto) 67, Lymphocytes (%) (Auto) 12 , Monocytes (%) (Auto) 18H, Eosinophils (%) (Auto) 2, Basophils (%) (Auto) 1, Neutrophils # (Auto) 4.8, Lymphocytes # (Auto) 0.9L, Monocytes # (Auto) 1.3H, Eosinophils # (Auto) 0.2, Basophils # (Auto) 0.0, Sodium Level 139, Potassium Level 4.0, Chloride Level 106, Carbon Dioxide Level 23, Anion Gap 10, Blood Urea Nitrogen 14, Creatinine 0.80, Estimat Glomerular Filtration Rate > 60, BUN/ Creatinine Ratio 18, Glucose Level 105, Calcium Level 9.1, Total Bilirubin 1.9H , Aspartate Amino Transf (AST/SGOT) 20, Alanine Aminotransferase (ALT/SGPT) 21, Alkaline Phosphatase 78, Total Protein 6.3L, Albumin 3.8 03/12/17 08:25: Urine Color AMBERH, Urine Clarity CLEAR, Urine pH 5, Urine Specific [place] 1.025H, Urine Protein 2+H, Urine Glucose (UA) NEGATIVE, Urine Ketones NEGATIVE, Urine Nitrite NEGATIVE, Urine Bilirubin 1+H, Urine Urobilinogen 4H, Urine Leukocyte Esterase 1+H, Urine RBC (Auto) NEGATIVE, Urine RBC NONE, Urine WBC 2-5 , Urine Squamous Epithelial Cells 0-2, Urine Crystals PRESENTH, Urine Calcium Oxalate Crystals MODERATEH, Urine Bacteria TRACE, Urine Casts PRESENT, Urine Hyaline Casts 5-10H, Urine Mucus MODERATEH, Urine Culture Indicated NO Assessment/Plan Assessment 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 Black OS 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 Chronic steroid usage 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 Chronic A FIB currently off Coumadin due to fall risk OA s/p Bilateral TKRS Postoperative Ileus resolved Pain management Plan CobtinuePT/OT/Pain management ST has signed off Appreciate DR Coello note Pain management meds adjusted this AM See orders ROSI RODRIGES MD Mar 12, 2017 15:51
--- NOTE | 2017-03-12 15:57 | Individualized Plan of Care ---
Individualized Plan of Care Rehab Nursing IPOC Order Admission Date Mar 11, 2017 at 11:30 Current Orders Orders Furosemide Tablet (Lasix Tablet) (03/12/17 09:00) Nursing Communication (Patient (03/11/17 20:06) Rehab-Intensity Of Therapy (03/11/17 20:36) Ua Culture If Indicated (03/12/17 08:39) Hydrocodone/Apap 5/325 Tablet (Lortab 5 (03/12/17 11:45) Zinc Oxide 16% Ointment (Butt Paste) (03/12/17 08:45) Patient Visit (03/12/17 ) Gait Training, Ea 15 Min (03/12/17 ) Functional Activities, Ea 15 (03/12/17 ) Exercise Therap, Ea 15 Min (03/12/17 ) Therapeutic, Group (03/12/17 ) Rehab Nursing Orders: Diseage Management, Edu in Press Rel Techn, Hydration Management, Nutrition Management, Pain Management Toilet every (bladder): (hrs): 2 hours while awake PRN Other Nursing Orders: Monitor for recurrent ileus and constipation due to Pain med usage PT IPOC Problem List: Activity Tolerance, Functional Strength, Safety, Balance, Gait, Transfer, Bed Mobility Treatment Plan: Continue Plan of Care Bed Mobility, Education, Functional Activity Jose Guadalupe, Functional Strength, Group Therapy, Gait, Safety, Therapeutic Exercise, Transfers Treatment Duration: Apr 01, 2017 Frequency: At least 5-7 days/Wk (IRF) Estimated Hrs Per Day: 1.5 hours per day OT IPOC Problems: Decreased Activ Tolerance, Decreased UE Strength, Dependent Transfers , Impaired Bed Mobility, Impaired Self-Care Skills OT Problems Pt would benefit from skilled OT to increase his independence in basic self care to allow him to safely return home with and to decrease caregiver burden Plan of Care: ADL Retraining, Functional Mobility, Group Exercise/Act as Ind ( education, exercise, activity tolerance, functional activities, socialization), UE Funct Exercise/Act, UE Neuromus Re-Ed/Coord Treatment Duration: Apr 03, 2017 Frequency: Twice Daily (15 hours over 7 days) Estimated Hrs Per Day: 1.[address] IPOC Speech Therapy Treatment Plan: Discontinue ST Frequency: Modified Program (IRF) Estimated Hrs Per Day: .25 hour per day (The patient will not receive speech therapy at this time.) Physician IPOC Medical Issues being managed closely and that require the 24 hour availability of a physician:Pain management HTN Chronic a FIB Pulm fibrosis with cchronic steroid usage Medical Issues: Bowel/Bladder Function, DVT Prophylaxis, Falls Precautions, Fluid/Electrolyte/Nutrition Balance, Infection Protection, Pain Management, Other (List) (as per above) Brief Synthesis of Preadmission Screen, Post-Admission Evaluation, and Therapy Evaluations: 87 yo male who had been Independent and living with spouse who tripped over his o2 line and fell with resulting L1 compression frx Had Kyphoplasty at OSH with Neurosurgery.Has had a decline in Functional [place] and referred to IRU here for ongoing care and pain management Lives with spouse in [place] [facility] Pulm fibrosis 02 dependent on Bipap at night Chronic A FIB and now with coumadin dcd due to fall risk HTN OA s/p Bilateral TKRS Had postop ileus resolved Medical Prognosis: good Anticipated Length of Stay: 2 weeks Rehab Goals Modified Independent for adls and mobility skills Anticipated discharge destinat: Home with C and spouse. ROSI RODRIGES MD Mar 12, 2017 15:57
[2017-03-12 18:45] VITALS: BP 147/78
[2017-03-12] MEDS: POLYETHYLENE GLYCOL 17 GM (MIRALAX) PACK PO SCH (20:38)
[2017-03-12] MEDS: QUEtiapine 25 MG (SEROquel) TAB IMMEDIATE RELEASE PO SCH (20:38)
[2017-03-13] MEDS: HYDROcodone/APAP 5 MG/325 MG (LORTAB) TAB PO PRN ×5 (00:43→20:36)
[2017-03-13 05:52] VITALS: BP 131/66
[2017-03-13] MEDS: PANTOPRAZOLE 20 MG TABLET (PROTONIX) PO SCH (06:04)
[2017-03-13] MEDS: KCL 10 MEQ TAB (MICRO K) PO SCH (06:04)
[2017-03-13] MEDS: predniSONE 10 MG TAB PO SCH (06:05)
[2017-03-13] MEDS: MULTIVIT W/MINERALS TAB (THERAGRAN M) PO SCH (06:05)
[2017-03-13] MEDS: OMEGA 3 (FISH OIL) 1000 MG CAP PO SCH ×2 (06:05→17:34)
[2017-03-13] MEDS: DOCUSATE SODIUM 100 MG (COLACE) CAP PO SCH ×3 (08:10→20:33)
[2017-03-13] MEDS: ASPIRIN E.C. 81 MG (ECOTRIN) TAB PO SCH (08:10)
[2017-03-13] MEDS: MELOXICAM 7.5 MG (MOBIC) TABLET PO SCH (08:10)
[2017-03-13] MEDS: FUROSEMIDE 40 MG (LASIX) TAB PO SCH (08:10)
[2017-03-13] MEDS: ATENOLOL 50 MG (TENORMIN) TAB PO SCH (08:10)
[2017-03-13] MEDS: DIGOXIN 0.125 MG (LANOXIN) TAB PO SCH (08:10)
--- NOTE | 2017-03-13 08:30 | Progress Note (SOAP) ---
Subjective Time Seen by Provider: 08:25 Subjective/Events-last exam compression fracture. Atrial fibrillation. Patient feeling okay today. 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 Patient uses walker or cane to get around Objective Exam Vital Signs Date Time Temp Pulse Resp B/P (MAP) Pulse Ox O2 Delivery O2 Flow Rate FiO2 03/13/17 06:58 Nasal Cannula 3.00 03/13/17 05:52 97.3 84 20 131/66 Nasal Cannula 3.00 03/12/17 20:30 NIV CPAP 3.00 03/12/17 18:45 96.6 65 18 147/78 100 03/12/17 15:39 Nasal Cannula 3.00 03/12/17 08:33 97 Nasal Cannula 3.00 I & O 03/13/17 07:00 Intake Total 2200 ml Balance 2200 ml Capillary Refill : General Appearance: No Apparent Distress, WD/WN HEENT: Normal ENT Inspection Neck: Full Range of Motion, Normal Inspection Respiratory: No Accessory Muscle Use, No Respiratory Distress, Decreased Breath Sounds Cardiovascular: Irregularly Irregular Gastrointestinal: non tender, soft Assessment/Plan Assessment/Plan Assess & Plan/Chief Complaint compression fracture. Atrial fibrillation. COPD using oxygen L1 compression fracture .. . 03/13/17. L1 compression fracture. Atrial fibrillation. COPD. Patient on oxygen. Clinical Quality Measures DVT/VTE Risk/Contraindication: Risk Factor Score Per Nursin RFS Level Per Nursing on Admit: 4+=Very High MIKO KELLY DO Mar 13, 2017 08:30
--- NOTE | 2017-03-13 08:44 | PM & R (SOAP) Progress Note ---
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 to get back to us if he wants Coumadin resumed for AFIB Was stopped by PCP DR العراقي due to fall risk.Patient min assist for transfers Review of Systems Musculoskeletal: back pain Objective Exam Last Set of Vital Signs Vital Signs Date Time Temp Pulse Resp B/P (MAP) Pulse Ox O2 Delivery O2 Flow Rate FiO2 03/13/17 06:58 Nasal Cannula 3.00 03/13/17 05:52 97.3 84 20 131/66 03/12/17 18:45 100 Capillary Refill : I&O Intake and Output 03/13/17 00:00 Intake Total 1180 ml Balance 1180 ml Intake Oral 1180 ml # Voids 9 # Bowel Movements 2 General: Alert, Oriented X3, Cooperative, No Acute Distress HEENT: Atraumatic, PERRLA, EOMI, Mucous Memb Moist/[place], Other (02 by N/C in place) Neck: Supple, No JVD Lungs: Clear to Auscultation Heart: Regular Rate Abdomen: Normal Bowel Sounds, Soft, No Tenderness Extremities: No Edema Neuro: Sensation Intact, Other (strength 4+/5 except hip flexion 3+/5 Left ankle fused) Results Lab Laboratory Tests 03/12/17 05:32: White Blood Count 7.2, Red Blood Count 4.72, Hemoglobin 14.5, Hematocrit 43, Mean Corpuscular Volume 92, Mean Corpuscular Hemoglobin 31, Mean Corpuscular Hemoglobin Concent 34, Red Cell Distribution Width 16.6H, Platelet Count 278, Mean Platelet Volume 10.4, Neutrophils (%) (Auto) 67, Lymphocytes (%) (Auto) 12 , Monocytes (%) (Auto) 18H, Eosinophils (%) (Auto) 2, Basophils (%) (Auto) 1, Neutrophils # (Auto) 4.8, Lymphocytes # (Auto) 0.9L, Monocytes # (Auto) 1.3H, Eosinophils # (Auto) 0.2, Basophils # (Auto) 0.0, Sodium Level 139, Potassium Level 4.0, Chloride Level 106, Carbon Dioxide Level 23, Anion Gap 10, Blood Urea Nitrogen 14, Creatinine 0.80, Estimat Glomerular Filtration Rate > 60, BUN/ Creatinine Ratio 18, Glucose Level 105, Calcium Level 9.1, Total Bilirubin 1.9H , Aspartate Amino Transf (AST/SGOT) 20, Alanine Aminotransferase (ALT/SGPT) 21, Alkaline Phosphatase 78, Total Protein 6.3L, Albumin 3.8 03/12/17 08:25: Urine Color AMBERH, Urine Clarity CLEAR, Urine pH 5, Urine Specific [place] 1.025H, Urine Protein 2+H, Urine Glucose (UA) NEGATIVE, Urine Ketones NEGATIVE, Urine Nitrite NEGATIVE, Urine Bilirubin 1+H, Urine Urobilinogen 4H, Urine Leukocyte Esterase 1+H, Urine RBC (Auto) NEGATIVE, Urine RBC NONE, Urine WBC 2-5 , Urine Squamous Epithelial Cells 0-2, Urine Crystals PRESENTH, Urine Calcium Oxalate Crystals MODERATEH, Urine Bacteria TRACE, Urine Casts PRESENT, Urine Hyaline Casts 5-10H, Urine Mucus MODERATEH, Urine Culture Indicated NO Assessment/Plan Assessment 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
--- NOTE | 2017-03-13 10:42 | Occupational Ther Daily Note ---
OT Current Status-Daily Note Subjective Pt seen in room, up in recliner, agreeable to OT. Pain rated 8/10 and pain meds given by nursing. Appearance Alert, cooperative Mental Status/Objective Functional [place] Measure 0=Not Assessed/NA 4=Minimal Assistance 1=Total Assistance 5=Supervision or Setup 2=Maximal Assistance 6=Modified [place] 3=Moderate Assistance 7=Complete [place] ADL-Treatment Pt wanted to shower today. He recalled transfer techniques and was able to get up and down from recliner and shower bench with SBA, using arm rests on chair and grab bars in bathroom. He still required frequent and prolonged recovery periods, even between steps of dressing (such as resting after putting shorts on but before pulling them up) but overall increased his activity tolerance because he completed ADL tasks in about an hour today, compared to an hour and a half yesterday. O2 at 3/min throughout Functional [place] Measure 0=Not Assessed/NA 4=Minimal Assistance 1=Total Assistance 5=Supervision or Setup 2=Maximal Assistance 6=Modified [place] 3=Moderate Assistance 7=Complete IndependenceIRFPAI Quality Coding Scale 6 Independent with activity with or without an assistive device 5 Patient requires set up or clean up by helper. Patient completes activity by themselves 4 Supervision or touching assist (CGA). [place] provide cues , steadying assist 3 The helper provides less than half the effort to complete the activity 2 The helper provides more than half the effort to complete the activity 1 Dependent. The helper does all the effort to complete an activity 7 Patient refused to complete or attempt activity 9 The patient did not perform the activity before the current illness or injury 88 Not attempted due to Medical conditions or safety concerns Grooming (FIM): 5 (SBA to comb hair, standing at sink, FWW. Washed hands and face in shower and said he brushed teeth earlier.) Bathing (FIM): 4 (Turned water on and off and retrieved towel. Washed and dried all parts except bottom. Pt educ use of long handled sponge to wash and dry feet, which he was able to do. Shower bench, grab bars, FWW) Upper Body (FIM): 5 (Doffed and donned t shirt with setup, able to problem solve O2 tubing under shirt.) Lower Body Dressing (FIM): 4 (Doffed and donned shorts with stup, supervision. Today able to pull pants up over bottom. Unable to get slipper socks on and did not want to use sock aid. ) Transfers (B, C, W/C) (FIM): 5 (SBA, FWW. Recalls hand placement) Shower Transfer(FIM): 5 (SBA for safety, shower bench, grab bars, FWW) Other Treatment When walking back to recliner from bathroom, his hip "gave out". He was using his FWW and did not lose his balance. He also has difficulty managing O2 tubing while walking. Talked with patient and patient's daughter who said that, when he fell at home, he was tangled up in the tubing and thought maybe his hip gave out, too. He did not have his FWW with him at the time. Pt educ to use FWW for safety when walking to support him when hip causes problems. Pt left up in recliner, O2 in place, all needs met. Education OT Patient Education: Modified ADL techniques, Progress toward Goal/Update tx plan, Purpose of tx/functional activities, Use of adapted equipment Teaching Recipient: Patient Teaching Methods: Demonstration, Discussion Response to Teaching: Verbalize Understanding OT Short Term Goals Short Term Goals Time Frame: Mar 20, 2017 Bathing(FIM): 5 Toilet/Commode Transfer(FIM): 5 Shower Transfer(FIM): 5 Additional Short Term Goals: 2-Verbalize Understanding, 3-ImproveStrength/Jose Guadalupe 1=Demonstrate adherence to instructed precautions during ADL tasks. 2=Patient will verbalize/demonstrate understanding of assistive devices/ modifications for ADL. 3=Patient will improve strength/tolerance for activity to enable patient to perform ADL's. OT Outreach Representative Goals Half-Way Goals Time Frame: Apr 03, 2017 Eating (FIM): 7 Eating (QC): 6 Groomin Oral Hygiene (QC): 6 Bathing(FIM): 6 Shower/Bathe Self (QC): 6 Upper Body Dressing(FIM): 6 Upper Body Dressing (QC): 6 Lower Body Dressing(FIM): 6 Lower Body Dressing (QC): 6 On/Off Footwear (QC): 6 Toileting(FIM): 6 Toileting Hygiene (QC): 6 Toilet/Commode Transfer(FIM): 6 Toilet/Commode Transfer (QC): 6 Shower Transfer(FIM): 6 Additional Goals: 2-Verbalize Understanding, 3-ImproveStrength/Jose Guadalupe 1=Demonstrate adherence to instructed precautions during ADL tasks. 2=Patient will verbalize/demonstrate understanding of assistive devices/ modifications for ADL. 3=Patient will improve strength/tolerance for activity to enable patient to perform ADL's. OT Education/Plan Problem List/Assessment Pt would benefit from skilled OT to increase his independence in basic self care to allow him to safely return home with and to decrease caregiver burden Discharge Recommendations Plan/Recommendations: Continue POC Treatment Plan/Plan of Care Patient would benefit from OT for education, treatment and training to promote independence in ADL's, mobility, safety and/or upper extremity function for ADL' s. Plan of Care: ADL Retraining, Functional Mobility, Group Exercise/Act as Ind ( education, exercise, activity tolerance, functional activities, socialization), UE Funct Exercise/Act, UE Neuromus Re-Ed/Coord Treatment Duration: Apr 03, 2017 Frequency: Twice Daily (15 hours over 7 days) Estimated Hrs Per Day: 1.5 hours per day Agreement: Yes Rehab Potential: Fair Time/GCodes Start Time: 10:00 Stop Time: 11:00 Total Time Billed (hr/min): 60 Billed Treatment Time visit, 60 minutes ADL DASIA DENNIS OT Mar 13, 2017 10:42
--- NOTE | 2017-03-13 12:05 | Physical Therapy Daily Note ---
PT Daily Note-Current Subjective Tai states his mobility is limited by both his back pain and SOB/fatigue. He also s/o chronic R hip pain. Pain Numeric Pain Scale: 8 Location: Posterior Location Body Site: Back Pain Description: Ache, Acute Mental Status Patient Orientation: Person, Place, Time Transfers Functional [place] Measure 0=Not Assessed/NA 4=Minimal Assistance 1=Total Assistance 5=Supervision or Setup 2=Maximal Assistance 6=Modified [place] 3=Moderate Assistance 7=Complete IndependenceIRFPAI Quality Coding Scale 6 Independent with activity with or without an assistive device 5 Patient requires set up or clean up by helper. Patient completes activity by themselves 4 Supervision or touching assist (CGA). [place] provide cues , steadying assist 3 The helper provides less than half the effort to complete the activity 2 The helper provides more than half the effort to complete the activity 1 Dependent. The helper does all the effort to complete an activity 7 Patient refused to complete or attempt activity 9 The patient did not perform the activity before the current illness or injury 88 Not attempted due to Medical conditions or safety concerns Transfers (B, C, W/C) (FIM): 5 Scootin Sit to/from Stand: 54 (Contact guard. Needs raised surface. ) Weight Bearing Weight Bearing Restriction: Weight Bearing/Tolerated Gait Training Gait (FIM): 2 Distance (FIM): 7=127-58 ft Distance: 100 ft x 2 with FWW and min assist for O2 @ 5L per pt. On 3L when sitting. Gait Level of Assist: 1 Lumbering, painful after 70 ft. Exercises Seated Therapy Exercises: Ankle pumps, Long arc quads Seated Reps: 15 Standing: Heel/toe raises, Marching, Sit to Stand, Weight shifts Standing Reps: 8 Needs rests between activities. NuStep Minutes: 5 (Reassessed pain after 2 min - concerned about strain on back and R hip. He did not report increase in pain. ) NuStep Workload: 2 Neuromuscular . Treatments Moist heat applied to low back x 15 min during seated ex. Assessment Current Status: Fair Progress Tai is a large (obese) 87 yo man with acute back pain s/p kyphoplasty. His best activity is walking, but he has chronic pulmonary problems and requires frequent rests. PT Short Term Goals Short Term Goals Time Frame: Mar 18, 2017 Gait (FIM): 5 Gait Distance Comment: 200' Gait Level of Assist: 5 Gait Assistive Device: FWW PT Plastics Fitter Goals Plastics Fitter Goals PT Plastics Fitter Goals Time Frame: Apr 01, 2017 Transfers (B,C,W/C) (FIM): 6 Sit to Lying (QC): 6 Lying-Sitting on Side/Bed(QC): 6 Sit to Stand (QC): 6 Rollin Roll Left to Right (QC): 6 Chair/Ydr-gi-Qydiv Xfer(QC): 6 Car Transfer (QC): 5 Gait (FIM): 6 Distance: 300' Walk 10 feet (QC): 6 Walk 10ft-Uneven Surface(QC): 6 Walk 50ft with 2 Turns (QC): 6 Walk 150 ft (QC): 6 Gait Assistive Device: FWW Stairs (FIM): 5 # of Steps: 12 1 Step (curb) (QC): 4 4 Steps (QC): 4 12 Steps (QC): 4 Stairs Level Of Assist: 5 PT Plan Treatment/Plan Treatment Plan: Continue Plan of Care Treatment Plan: Bed Mobility, Education, Functional Activity Jose Guadalupe, Functional Strength, Group Therapy, Gait, Safety, Therapeutic Exercise, Transfers Treatment Duration: Apr 01, 2017 Frequency: At least 5-7 days/Wk (IRF) Estimated Hrs Per Day: 1.5 hours per day Patient and/or Family Agrees t: Yes Time/GCodes Time In: 1100 Time Out: 1200 Total Billed Treatment Time: 60 Total Billed Treatment Visit, Gt x 2 (30), EX x 2 (30) G Codes Necessary: JUD Cancino PT Mar 13, 2017 12:05
--- NOTE | 2017-03-13 14:42 | Physical Therapy Daily Note ---
PT Daily Note-Current Subjective He is c/o severe back pain during amb. Also reports he can't sleep at night because of the gel beds and his inability to turn himself. He has been sitting in the recliner but not sleeping. Discussed use of TENS but he said he has a device that sends EKG info to his tag and label cutter. Discussed using the regular bed in the independent living unit. Appearance Looks distressed. Transfers Functional [place] Measure 0=Not Assessed/NA 4=Minimal Assistance 1=Total Assistance 5=Supervision or Setup 2=Maximal Assistance 6=Modified [place] 3=Moderate Assistance 7=Complete IndependenceIRFPAI Quality Coding Scale 6 Independent with activity with or without an assistive device 5 Patient requires set up or clean up by helper. Patient completes activity by themselves 4 Supervision or touching assist (CGA). [place] provide cues , steadying assist 3 The helper provides less than half the effort to complete the activity 2 The helper provides more than half the effort to complete the activity 1 Dependent. The helper does all the effort to complete an activity 7 Patient refused to complete or attempt activity 9 The patient did not perform the activity before the current illness or injury 88 Not attempted due to Medical conditions or safety concerns Transfers (B, C, W/C) (FIM): 3 (SBA for sit to stand but needed assist to lift both legs on to the bed. ) Rollin Supine to/from Sit: 3 (Assist to lift both legs. ) Gait Training Distance (FIM): 8=139-52 ft Distance: 50 ft Gait Level of Assist: 5 (Assist to manage O2 tubing) Gait Persons Needed: 1 Gait Assistive Device: FWW Treatments Practiced bed transfers and bed mobility. Has great difficulty moving in bed due to gel mattress, large stomach and back pain. Assessment Current Status: Poor Progress Bed mobility is a problem as is his lack of sleep. Able to walk short distances with FWW and O2. PT Short Term Goals Short Term Goals Time Frame: Mar 18, 2017 Gait (FIM): 5 Gait Distance Comment: 200' Gait Level of Assist: 5 Gait Assistive Device: FWW PT Fpc Goals Forensic Pathologist Goals PT Forensic Pathologist Goals Time Frame: Apr 01, 2017 Transfers (B,C,W/C) (FIM): 6 Sit to Lying (QC): 6 Lying-Sitting on Side/Bed(QC): 6 Sit to Stand (QC): 6 Rollin Roll Left to Right (QC): 6 Chair/Nqy-ar-Sfgup Xfer(QC): 6 Car Transfer (QC): 5 Gait (FIM): 6 Distance: 300' Walk 10 feet (QC): 6 Walk 10ft-Uneven Surface(QC): 6 Walk 50ft with 2 Turns (QC): 6 Walk 150 ft (QC): 6 Gait Assistive Device: FWW Stairs (FIM): 5 # of Steps: 12 1 Step (curb) (QC): 4 4 Steps (QC): 4 12 Steps (QC): 4 Stairs Level Of Assist: 5 PT Plan Treatment/Plan Treatment Plan: Continue Plan of Care Treatment Plan: Bed Mobility, Education, Functional Activity Jose Guadalupe, Functional Strength, Group Therapy, Gait, Safety, Therapeutic Exercise, Transfers Treatment Duration: Apr 01, 2017 Frequency: At least 5-7 days/Wk (IRF) Estimated Hrs Per Day: 1.5 hours per day Patient and/or Family Agrees t: Yes Time/GCodes Time In: 200 Time Out: 230 Total Billed Treatment Time: 30 Total Billed Treatment Visit, Gait 10, Functional activity 20 JUD VALENTINO PT Mar 13, 2017 14:42
--- NOTE | 2017-03-13 16:36 | Occupational Ther Daily Note ---
OT Current Status-Daily Note Subjective Pt seen inroom, up in recliner, agreeable to OT. No pain mentioned Appearance Alert, cooperative Mental Status/Objective Functional [place] Measure 0=Not Assessed/NA 4=Minimal Assistance 1=Total Assistance 5=Supervision or Setup 2=Maximal Assistance 6=Modified [place] 3=Moderate Assistance 7=Complete [place] ADL-Treatment Functional [place] Measure 0=Not Assessed/NA 4=Minimal Assistance 1=Total Assistance 5=Supervision or Setup 2=Maximal Assistance 6=Modified [place] 3=Moderate Assistance 7=Complete IndependenceIRFPAI Quality Coding Scale 6 Independent with activity with or without an assistive device 5 Patient requires set up or clean up by helper. Patient completes activity by themselves 4 Supervision or touching assist (CGA). [place] provide cues , steadying assist 3 The helper provides less than half the effort to complete the activity 2 The helper provides more than half the effort to complete the activity 1 Dependent. The helper does all the effort to complete an activity 7 Patient refused to complete or attempt activity 9 The patient did not perform the activity before the current illness or injury 88 Not attempted due to Medical conditions or safety concerns Other Treatment Pt transferred sit to stand with SBA, FWW and walked with SBA for safety, FWW to gym, with OT managing oxygen tank and tubing. Pt transferred into chair with arms and needed recovery period before starting exercise. Pt did 10 min bilat UE ex with arm bike set at 25W resistance (he has done this in pulmonary rehab and adjusted resistance himself), taking one recovery period about half way. After completing exercise, he walked back to his room, SBA for safety, OT managing oxygen tank and tubing. Exercise to strengthen arms for safe transfers and to help increase activity tolerance for ADLs. Pt left up in recliner, O2 in place at 3L/min, all needs met. Education OT Patient Education: Exercise program, Purpose of tx/functional activities Teaching Recipient: Patient Teaching Methods: Discussion Response to Teaching: Verbalize Understanding OT Short Term Goals Short Term Goals Time Frame: Mar 20, 2017 Bathing(FIM): 5 Toilet/Commode Transfer(FIM): 5 Shower Transfer(FIM): 5 Additional Short Term Goals: 2-Verbalize Understanding, 3-ImproveStrength/Jose Guadalupe 1=Demonstrate adherence to instructed precautions during ADL tasks. 2=Patient will verbalize/demonstrate understanding of assistive devices/ modifications for ADL. 3=Patient will improve strength/tolerance for activity to enable patient to perform ADL's. OT Shelter Goals Ux Consultant Goals Time Frame: Apr 03, 2017 Eating (FIM): 7 Eating (QC): 6 Groomin Oral Hygiene (QC): 6 Bathing(FIM): 6 Shower/Bathe Self (QC): 6 Upper Body Dressing(FIM): 6 Upper Body Dressing (QC): 6 Lower Body Dressing(FIM): 6 Lower Body Dressing (QC): 6 On/Off Footwear (QC): 6 Toileting(FIM): 6 Toileting Hygiene (QC): 6 Toilet/Commode Transfer(FIM): 6 Toilet/Commode Transfer (QC): 6 Shower Transfer(FIM): 6 Additional Goals: 2-Verbalize Understanding, 3-ImproveStrength/Jose Guadalupe 1=Demonstrate adherence to instructed precautions during ADL tasks. 2=Patient will verbalize/demonstrate understanding of assistive devices/ modifications for ADL. 3=Patient will improve strength/tolerance for activity to enable patient to perform ADL's. OT Education/Plan Problem List/Assessment Pt would benefit from skilled OT to increase his independence in basic self care to allow him to safely return home with and to decrease caregiver burden Discharge Recommendations Plan/Recommendations: Continue POC Treatment Plan/Plan of Care Patient would benefit from OT for education, treatment and training to promote independence in ADL's, mobility, safety and/or upper extremity function for ADL' s. Plan of Care: ADL Retraining, Functional Mobility, Group Exercise/Act as Ind ( education, exercise, activity tolerance, functional activities, socialization), UE Funct Exercise/Act, UE Neuromus Re-Ed/Coord Treatment Duration: Apr 03, 2017 Frequency: Twice Daily (15 hours over 7 days) Estimated Hrs Per Day: 1.5 hours per day Agreement: Yes Rehab Potential: Fair Time/GCodes Start Time: 12:30 Stop Time: 13:00 Total Time Billed (hr/min): 30 Billed Treatment Time visit, 30 minutes exercise DASIA DENNIS OT Mar 13, 2017 16:36
[2017-03-13] MEDS: DICLOFENAC 1% GEL 100 GM (VOLTAREN) TUBE TOP SCH ×2 (17:45→20:37)
[2017-03-13 18:05] VITALS: BP 110/71
[2017-03-13] MEDS: POLYETHYLENE GLYCOL 17 GM (MIRALAX) PACK PO SCH (20:33)
[2017-03-13] MEDS: QUEtiapine 25 MG (SEROquel) TAB IMMEDIATE RELEASE PO SCH (20:37)
[2017-03-14 03:00] VITALS: BP 101/64
[2017-03-14] MEDS: HYDROcodone/APAP 5 MG/325 MG (LORTAB) TAB PO PRN ×3 (05:05→21:45)
[2017-03-14] MEDS: KCL 10 MEQ TAB (MICRO K) PO SCH (06:04)
[2017-03-14] MEDS: PANTOPRAZOLE 20 MG TABLET (PROTONIX) PO SCH (06:04)
[2017-03-14] MEDS: OMEGA 3 (FISH OIL) 1000 MG CAP PO SCH ×2 (06:04→16:56)
[2017-03-14] MEDS: predniSONE 10 MG TAB PO SCH (06:04)
[2017-03-14] MEDS: MULTIVIT W/MINERALS TAB (THERAGRAN M) PO SCH (06:04)
[2017-03-14] MEDS: ACETAMINOPHEN 500 MG TAB (TYLENOL) PO SCH (08:36)
[2017-03-14] MEDS: ASPIRIN E.C. 81 MG (ECOTRIN) TAB PO SCH (08:36)
[2017-03-14] MEDS: FUROSEMIDE 40 MG (LASIX) TAB PO SCH (08:36)
[2017-03-14] MEDS: MELOXICAM 7.5 MG (MOBIC) TABLET PO SCH (08:36)
[2017-03-14] MEDS: ATENOLOL 50 MG (TENORMIN) TAB PO SCH (08:36)
[2017-03-14] MEDS: DIGOXIN 0.125 MG (LANOXIN) TAB PO SCH (08:36)
[2017-03-14] MEDS: DICLOFENAC 1% GEL 100 GM (VOLTAREN) TUBE TOP SCH ×4 (08:37→21:45)
[2017-03-14] MEDS: DOCUSATE SODIUM 100 MG (COLACE) CAP PO SCH ×2 (08:38→21:46)
[2017-03-14 08:39] VITALS: BP 112/75
--- NOTE | 2017-03-14 10:30 | Physical Therapy Daily Note ---
PT Daily Note-Current Subjective Patient in recliner pre tx, agrees to PT but states he has a lot of back pain /, he has already had pain meds. Appearance Patient in recliner post tx with nurse call, phone, tray, all needs met. Mental Status Patient Orientation: Person, Place, Situation Attachments: Oxygen Transfers Functional [place] Measure 0=Not Assessed/NA 4=Minimal Assistance 1=Total Assistance 5=Supervision or Setup 2=Maximal Assistance 6=Modified [place] 3=Moderate Assistance 7=Complete IndependenceIRFPAI Quality Coding Scale 6 Independent with activity with or without an assistive device 5 Patient requires set up or clean up by helper. Patient completes activity by themselves 4 Supervision or touching assist (CGA). [place] provide cues , steadying assist 3 The helper provides less than half the effort to complete the activity 2 The helper provides more than half the effort to complete the activity 1 Dependent. The helper does all the effort to complete an activity 7 Patient refused to complete or attempt activity 9 The patient did not perform the activity before the current illness or injury 88 Not attempted due to Medical conditions or safety concerns Transfers (B, C, W/C) (FIM): 5 Sit to/from Stand: 5 Patient had a lot of pain with sit to stand but he was able to do it without assist. Gait Training Gait (FIM): 5 Distance: 150'x2 Gait Level of Assist: 5 Gait Persons Needed: 1 Gait Assistive Device: FWW antalgic, patient needed a long rest break between walks Treatments transfers, ambulation Assessment Current Status: Fair Progress lots of pain today PT Short Term Goals Short Term Goals Time Frame: Mar 18, 2017 Gait (FIM): 5 Gait Distance Comment: 200' Gait Level of Assist: 5 Gait Assistive Device: FWW PT Half-Way Goals Field Education Director Goals PT Field Education Director Goals Time Frame: Apr 01, 2017 Transfers (B,C,W/C) (FIM): 6 Sit to Lying (QC): 6 Lying-Sitting on Side/Bed(QC): 6 Sit to Stand (QC): 6 Rollin Roll Left to Right (QC): 6 Chair/Rga-qo-Nlxmi Xfer(QC): 6 Car Transfer (QC): 5 Gait (FIM): 6 Distance: 300' Walk 10 feet (QC): 6 Walk 10ft-Uneven Surface(QC): 6 Walk 50ft with 2 Turns (QC): 6 Walk 150 ft (QC): 6 Gait Assistive Device: FWW Stairs (FIM): 5 # of Steps: 12 1 Step (curb) (QC): 4 4 Steps (QC): 4 12 Steps (QC): 4 Stairs Level Of Assist: 5 PT Plan Problem List Problem List: Activity Tolerance, Functional Strength, Safety, Balance, Gait, Transfer, Bed Mobility, ROM Treatment/Plan Treatment Plan: Continue Plan of Care Treatment Plan: Bed Mobility, Education, Functional Activity Jose Guadalupe, Functional Strength, Group Therapy, Gait, Safety, Therapeutic Exercise, Transfers Treatment Duration: Apr 01, 2017 Frequency: At least 5-7 days/Wk (IRF) Estimated Hrs Per Day: 1.5 hours per day Patient and/or Family Agrees t: Yes Safety Risks/Education Patient Education: Gait Training, Transfer Techniques, Correct Positioning, Safety Issues Teaching Recipient: Patient Teaching Methods: Demonstration, Discussion Response to Teaching: Reinforcement Needed Time/GCodes Time In: 1000 Time Out: 1030 Total Billed Treatment Time: 30 Total Billed Treatment 1 visit GT 30' SHAI KIM PT Mar 14, 2017 10:30
--- NOTE | 2017-03-14 10:43 | Occupational Ther Daily Note ---
OT Current Status-Daily Note Subjective "I am not that great. I really don't want to do anything." Appearance Patient seated at the side of the bed trying to comb his hair. Asked therapist for assistance to part the hair to the left. O2 in place. Patient known to this therapist from having treated his left wrist as an outpatient years ago. Patient then spent time updating me on his current situation. Mental Status/Objective Patient Orientation: Person, Place, Situation Functional [place] Measure 0=Not Assessed/NA 4=Minimal Assistance 1=Total Assistance 5=Supervision or Setup 2=Maximal Assistance 6=Modified [place] 3=Moderate Assistance 7=Complete [place] ADL-Treatment Functional [place] Measure 0=Not Assessed/NA 4=Minimal Assistance 1=Total Assistance 5=Supervision or Setup 2=Maximal Assistance 6=Modified [place] 3=Moderate Assistance 7=Complete IndependenceIRFPAI Quality Coding Scale 6 Independent with activity with or without an assistive device 5 Patient requires set up or clean up by helper. Patient completes activity by themselves 4 Supervision or touching assist (CGA). [place] provide cues , steadying assist 3 The helper provides less than half the effort to complete the activity 2 The helper provides more than half the effort to complete the activity 1 Dependent. The helper does all the effort to complete an activity 7 Patient refused to complete or attempt activity 9 The patient did not perform the activity before the current illness or injury 88 Not attempted due to Medical conditions or safety concerns Other Treatment With encouragement, patient agreed to work on strength and endurance via the UBE. OT brought machine to his room. He independently set the resistance and the time to complete the session. Therapist left moderate resistive theraband and demonstrated use for him to use over the weekend. He agreed to do so. OT Short Term Goals Short Term Goals Time Frame: Mar 20, 2017 Bathing(FIM): 5 Toilet/Commode Transfer(FIM): 5 Shower Transfer(FIM): 5 Additional Short Term Goals: 2-Verbalize Understanding, 3-ImproveStrength/Jose Guadalupe 1=Demonstrate adherence to instructed precautions during ADL tasks. 2=Patient will verbalize/demonstrate understanding of assistive devices/ modifications for ADL. 3=Patient will improve strength/tolerance for activity to enable patient to perform ADL's. OT New Car Inspector Goals New Car Inspector Goals Time Frame: Apr 03, 2017 Eating (FIM): 7 Eating (QC): 6 Groomin Oral Hygiene (QC): 6 Bathing(FIM): 6 Shower/Bathe Self (QC): 6 Upper Body Dressing(FIM): 6 Upper Body Dressing (QC): 6 Lower Body Dressing(FIM): 6 Lower Body Dressing (QC): 6 On/Off Footwear (QC): 6 Toileting(FIM): 6 Toileting Hygiene (QC): 6 Toilet/Commode Transfer(FIM): 6 Toilet/Commode Transfer (QC): 6 Shower Transfer(FIM): 6 Additional Goals: 2-Verbalize Understanding, 3-ImproveStrength/Jose Guadalupe 1=Demonstrate adherence to instructed precautions during ADL tasks. 2=Patient will verbalize/demonstrate understanding of assistive devices/ modifications for ADL. 3=Patient will improve strength/tolerance for activity to enable patient to perform ADL's. OT Education/Plan Problem List/Assessment Pt would benefit from skilled OT to increase his independence in basic self care to allow him to safely return home with and to decrease caregiver burden Discharge Recommendations Plan/Recommendations: Continue POC Treatment Plan/Plan of Care Patient would benefit from OT for education, treatment and training to promote independence in ADL's, mobility, safety and/or upper extremity function for ADL' s. Plan of Care: ADL Retraining, Functional Mobility, Group Exercise/Act as Ind ( education, exercise, activity tolerance, functional activities, socialization), UE Funct Exercise/Act, UE Neuromus Re-Ed/Coord Treatment Duration: Apr 03, 2017 Frequency: Twice Daily (15 hours over 7 days) Estimated Hrs Per Day: 1.5 hours per day Agreement: Yes Rehab Potential: Fair Time/GCodes Start Time: 09:15 Stop Time: 09:40 Total Time Billed (hr/min): 25 Billed Treatment Time Visit, ex x 2 units. TESS CROUCH OT Mar 14, 2017 10:43
[2017-03-14 18:20] VITALS: BP 105/61
[2017-03-14] MEDS: POLYETHYLENE GLYCOL 17 GM (MIRALAX) PACK PO SCH (21:45)
[2017-03-14] MEDS: QUEtiapine 25 MG (SEROquel) TAB IMMEDIATE RELEASE PO SCH (21:45)
[2017-03-15] MEDS: HYDROcodone/APAP 5 MG/325 MG (LORTAB) TAB PO PRN ×3 (03:58→13:01)
[2017-03-15 06:00] VITALS: BP 123/77
[2017-03-15] MEDS: MULTIVIT W/MINERALS TAB (THERAGRAN M) PO SCH (06:16)
[2017-03-15] MEDS: predniSONE 10 MG TAB PO SCH (06:16)
[2017-03-15] MEDS: OMEGA 3 (FISH OIL) 1000 MG CAP PO SCH ×2 (06:16→16:29)
[2017-03-15] MEDS: PANTOPRAZOLE 20 MG TABLET (PROTONIX) PO SCH (06:16)
[2017-03-15] MEDS: KCL 10 MEQ TAB (MICRO K) PO SCH (06:16)
[2017-03-15] MEDS: DOCUSATE SODIUM 100 MG (COLACE) CAP PO SCH ×2 (07:53→20:43)
[2017-03-15] MEDS: ASPIRIN E.C. 81 MG (ECOTRIN) TAB PO SCH (08:01)
[2017-03-15] MEDS: FUROSEMIDE 40 MG (LASIX) TAB PO SCH (08:01)
[2017-03-15] MEDS: MELOXICAM 7.5 MG (MOBIC) TABLET PO SCH (08:01)
[2017-03-15] MEDS: ATENOLOL 50 MG (TENORMIN) TAB PO SCH (08:02)
[2017-03-15] MEDS: ACETAMINOPHEN 500 MG TAB (TYLENOL) PO SCH (08:02)
[2017-03-15] MEDS: ZINC OXIDE 16% OINT (BUTT PASTE) 113 GM TUBE TOP PRN (08:02)
[2017-03-15] MEDS: DIGOXIN 0.125 MG (LANOXIN) TAB PO SCH (08:02)
[2017-03-15] MEDS: DICLOFENAC 1% GEL 100 GM (VOLTAREN) TUBE TOP SCH ×4 (08:02→20:43)
[2017-03-15 08:04] VITALS: BP 145/88
[2017-03-15 18:17] VITALS: BP 119/81
[2017-03-15] MEDS: QUEtiapine 25 MG (SEROquel) TAB IMMEDIATE RELEASE PO SCH (20:43)
[2017-03-15] MEDS: POLYETHYLENE GLYCOL 17 GM (MIRALAX) PACK PO SCH (20:43)
[2017-03-16] MEDS: HYDROcodone/APAP 5 MG/325 MG (LORTAB) TAB PO PRN ×5 (00:55→20:04)
[2017-03-16 05:16] VITALS: BP 115/79
[2017-03-16] MEDS: predniSONE 10 MG TAB PO SCH (06:00)
[2017-03-16] MEDS: MULTIVIT W/MINERALS TAB (THERAGRAN M) PO SCH (06:00)
[2017-03-16] MEDS: OMEGA 3 (FISH OIL) 1000 MG CAP PO SCH ×2 (06:00→17:52)
[2017-03-16] MEDS: KCL 10 MEQ TAB (MICRO K) PO SCH (06:00)
[2017-03-16] MEDS: PANTOPRAZOLE 20 MG TABLET (PROTONIX) PO SCH (06:00)
--- NOTE | 2017-03-16 07:55 | Physical Therapy Daily Note ---
PT Daily Note-Current Subjective Pt. up in recliner, c/o pain but cant rate it. Appears very aggravated, frustrated, short. Explains his situation at home and that he really wants to get there but doesnt have help at home. States he thinks he tripped over his O2 tube at home. Pain Numeric Pain Scale: 8 Location: Medial Location Body Site: Back Pain Description: Pressure Mental Status Patient Orientation: Normal For Age Attachments: Oxygen (3L) Transfers Functional [place] Measure 0=Not Assessed/NA 4=Minimal Assistance 1=Total Assistance 5=Supervision or Setup 2=Maximal Assistance 6=Modified [place] 3=Moderate Assistance 7=Complete IndependenceIRFPAI Quality Coding Scale 6 Independent with activity with or without an assistive device 5 Patient requires set up or clean up by helper. Patient completes activity by themselves 4 Supervision or touching assist (CGA). [place] provide cues , steadying assist 3 The helper provides less than half the effort to complete the activity 2 The helper provides more than half the effort to complete the activity 1 Dependent. The helper does all the effort to complete an activity 7 Patient refused to complete or attempt activity 9 The patient did not perform the activity before the current illness or injury 88 Not attempted due to Medical conditions or safety concerns Transfers (B, C, W/C) (FIM): 5 Scootin Rollin Supine to/from Sit: 5 Sit to/from Stand: 5 sup to sit with log roll education and instruction , on firm surface pt. managed well SBA Gait Training Does the Patient Walk?: Yes Gait (FIM): 4 Distance (FIM): 3=150 ft (150,75x3) Gait Level of Assist: 4 Gait Persons Needed: 1 Gait Assistive Device: FWW narrow MIRIAN Stair Training Stair Training: Handrails/: uses walker Stairs (FIM): 2 #of Steps: 2 1 Step (curb) (QC): 1 Stairs: Pattern: Step to Level of Assist: 3 attempted simulation of home situation, pt. has 2 deep steps and can get FWW up on them. Pt. needed mod assist to ascend and descend Exercises Seated Therapy Exercises: Ankle pumps, Sit to stand, Long arc quads, Hip flexion Seated Reps: 10 Assessment Current Status: Good Progress pt. is negative, c/o pain but hesitates to rate, wants to go home , this TELEVISION ANNOUNCER explaining that we want to work toward safety and indep before DC PT Short Term Goals Short Term Goals Time Frame: Mar 18, 2017 Gait (FIM): 5 Gait Distance Comment: 200' Gait Level of Assist: 5 Gait Assistive Device: FWW PT Chcf Goals Special Assemblies Supervisor Goals PT Special Assemblies Supervisor Goals Time Frame: Apr 01, 2017 Transfers (B,C,W/C) (FIM): 6 Sit to Lying (QC): 6 Lying-Sitting on Side/Bed(QC): 6 Sit to Stand (QC): 6 Rollin Roll Left to Right (QC): 6 Chair/Nmo-dc-Efsxa Xfer(QC): 6 Car Transfer (QC): 5 Gait (FIM): 6 Distance: 300' Walk 10 feet (QC): 6 Walk 10ft-Uneven Surface(QC): 6 Walk 50ft with 2 Turns (QC): 6 Walk 150 ft (QC): 6 Gait Assistive Device: FWW Stairs (FIM): 5 # of Steps: 12 1 Step (curb) (QC): 4 4 Steps (QC): 4 12 Steps (QC): 4 Stairs Level Of Assist: 5 PT Plan Treatment/Plan Treatment Plan: Continue Plan of Care Treatment Plan: Bed Mobility, Education, Functional Activity Jose Guadalupe, Functional Strength, Group Therapy, Gait, Safety, Therapeutic Exercise, Transfers Treatment Duration: Apr 01, 2017 Frequency: At least 5-7 days/Wk (IRF) Estimated Hrs Per Day: 1.5 hours per day Patient and/or Family Agrees t: Yes Safety Risks/Education Patient Education: Gait Training, Transfer Techniques, Steps Teaching Recipient: Patient Teaching Methods: Demonstration, Discussion Response to Teaching: Verbalize Understanding, Return Demonstration, Reinforcement Needed Time/GCodes Time In: 700 Time Out: 800 Total Billed Treatment Time: 60 Total Billed Treatment 1,FA30m,GT30m G Codes Necessary: BRIAN Munroe TELEVISION ANNOUNCER Mar 16, 2017 07:55
[2017-03-16] MEDS: ASPIRIN E.C. 81 MG (ECOTRIN) TAB PO SCH (08:03)
[2017-03-16] MEDS: MELOXICAM 7.5 MG (MOBIC) TABLET PO SCH (08:03)
[2017-03-16] MEDS: DIGOXIN 0.125 MG (LANOXIN) TAB PO SCH (08:03)
[2017-03-16] MEDS: FUROSEMIDE 40 MG (LASIX) TAB PO SCH (08:03)
[2017-03-16] MEDS: ATENOLOL 50 MG (TENORMIN) TAB PO SCH (08:04)
[2017-03-16] MEDS: ACETAMINOPHEN 500 MG TAB (TYLENOL) PO SCH (08:04)
[2017-03-16] MEDS: DICLOFENAC 1% GEL 100 GM (VOLTAREN) TUBE TOP SCH (08:05)
[2017-03-16] MEDS: DOCUSATE SODIUM 100 MG (COLACE) CAP PO SCH ×2 (08:05→20:05)
--- NOTE | 2017-03-16 08:35 | Progress Note (SOAP) ---
Subjective Time Seen by Provider: 08:30 Subjective/Events-last exam PATIENT DOES NOT FEEL HE IS A FALL AREA pATIENT IS IMPROVING. Compression fracture. Patient having arthritic pains. Atrial fibrillation Objective Exam Vital Signs Date Time Temp Pulse Resp B/P (MAP) Pulse Ox O2 Delivery O2 Flow Rate FiO2 03/16/17 05:16 97.7 72 18 115/79 99 Nasal Cannula 3.00 03/15/17 20:05 Nasal Cannula 3.00 03/15/17 18:17 97.5 73 16 119/81 98 03/15/17 15:18 Nasal Cannula 3.00 03/15/17 08:51 Nasal Cannula 3.00 I & O 03/16/17 07:00 Intake Total 2030 ml Balance 2030 ml Capillary Refill : General Appearance: No Apparent Distress, WD/WN HEENT: Normal ENT Inspection Neck: Full Range of Motion, Non Tender Respiratory: No Accessory Muscle Use, No Respiratory Distress, Decreased Breath Sounds, Other (On oxygen) Cardiovascular: Irregularly Irregular Gastrointestinal: non tender, soft Assessment/Plan Assessment/Plan Assess & Plan/Chief Complaint compression fracture. Atrial fibrillation. COPD using oxygen L1 compression fracture .. . 03/13/17. L1 compression fracture. Atrial fibrillation. COPD. Patient on oxygen.. . 03/16/17. Compression fracture. atrial fibrillation. COPD Patient does not feel he is of fall candidate. Patient put on Coumadin Clinical Quality Measures DVT/VTE Risk/Contraindication: Risk Factor Score Per Nursin RFS Level Per Nursing on Admit: 4+=Very High MIKO KELLY DO Mar 16, 2017 08:35
[2017-03-16 09:16] LABS: INR 1.2 (0.8-1.4); PROTHROMBIN TIME PATIENT 14.5 SEC (12.2-14.7)
--- NOTE | 2017-03-16 13:21 | Occupational Ther Daily Note ---
OT Current Status-Daily Note Subjective Pt seen in room, up in recliner, agreeable to OT. Pain initially reported 8/10 and requiring intervention with pain meds, then feeling much better. Appearance Alert, cooperative. Very fatigued. Said he only slept three hours last night due to pain Mental Status/Objective Functional [place] Measure 0=Not Assessed/NA 4=Minimal Assistance 1=Total Assistance 5=Supervision or Setup 2=Maximal Assistance 6=Modified [place] 3=Moderate Assistance 7=Complete [place] ADL-Treatment All ADLs took longer that usual, with required recovery periods. Pt on O2 at 3L/ min throughout. Pt left up in recliner, all needs met, family visiting Functional [place] Measure 0=Not Assessed/NA 4=Minimal Assistance 1=Total Assistance 5=Supervision or Setup 2=Maximal Assistance 6=Modified [place] 3=Moderate Assistance 7=Complete IndependenceIRFPAI Quality Coding Scale 6 Independent with activity with or without an assistive device 5 Patient requires set up or clean up by helper. Patient completes activity by themselves 4 Supervision or touching assist (CGA). [place] provide cues , steadying assist 3 The helper provides less than half the effort to complete the activity 2 The helper provides more than half the effort to complete the activity 1 Dependent. The helper does all the effort to complete an activity 7 Patient refused to complete or attempt activity 9 The patient did not perform the activity before the current illness or injury 88 Not attempted due to Medical conditions or safety concerns Bathing (FIM): 5 (Setup. Washed and dried all parts. Shower bench, grab bar, hand held shower. Turned water on and off and retrieved towel) Upper Body (FIM): 5 (Setup, including managing oxygen tubing) Lower Body Dressing (FIM): 5 (Setup. Pt edu use of dressing stick to take socks off. he reported he made one similar to this and used it at home. Also used sock aid successfully today and long shoe horn.) Toileting (FIM): 5 (Managed clothing and hygiene. FWW, BSC over toilet, grab bar) Transfers (B, C, W/C) (FIM): 5 (From recliiner, FWW. SKilled cues for hand placement) Toilet/Commode Transfer (FIM): 5 (SBA, BSC over toilet, grab bar) Shower Transfer(FIM): 5 (SBA, shower bench, grab bar) Education OT Patient Education: Modified ADL techniques, Progress toward Goal/Update tx plan, Purpose of tx/functional activities, Transfer techniques, Use of adapted equipment Teaching Recipient: Patient Teaching Methods: Discussion Response to Teaching: Verbalize Understanding, Reinforcement Needed OT Short Term Goals Short Term Goals Time Frame: Mar 20, 2017 Bathing(FIM): 5 Toilet/Commode Transfer(FIM): 5 Shower Transfer(FIM): 5 Additional Short Term Goals: 2-Verbalize Understanding, 3-ImproveStrength/Jose Guadalupe 1=Demonstrate adherence to instructed precautions during ADL tasks. 2=Patient will verbalize/demonstrate understanding of assistive devices/ modifications for ADL. 3=Patient will improve strength/tolerance for activity to enable patient to perform ADL's. OT Sewage Plant Operator Goals Sewage Plant Operator Goals Time Frame: Apr 03, 2017 Eating (FIM): 6 Eating (QC): 6 Groomin Oral Hygiene (QC): 6 Bathing(FIM): 6 Shower/Bathe Self (QC): 6 Upper Body Dressing(FIM): 6 Upper Body Dressing (QC): 6 Lower Body Dressing(FIM): 6 Lower Body Dressing (QC): 6 On/Off Footwear (QC): 6 Toileting(FIM): 6 Toileting Hygiene (QC): 6 Toilet/Commode Transfer(FIM): 6 Toilet/Commode Transfer (QC): 6 Shower Transfer(FIM): 6 Additional Goals: 2-Verbalize Understanding, 3-ImproveStrength/Jose Guadalupe 1=Demonstrate adherence to instructed precautions during ADL tasks. 2=Patient will verbalize/demonstrate understanding of assistive devices/ modifications for ADL. 3=Patient will improve strength/tolerance for activity to enable patient to perform ADL's. OT Education/Plan Problem List/Assessment Pt would benefit from skilled OT to increase his independence in basic self care to allow him to safely return home with and to decrease caregiver burden Discharge Recommendations Plan/Recommendations: Continue POC Treatment Plan/Plan of Care Patient would benefit from OT for education, treatment and training to promote independence in ADL's, mobility, safety and/or upper extremity function for ADL' s. Plan of Care: ADL Retraining, Functional Mobility, Group Exercise/Act as Ind ( education, exercise, activity tolerance, functional activities, socialization), UE Funct Exercise/Act, UE Neuromus Re-Ed/Coord Treatment Duration: Apr 03, 2017 Frequency: Twice Daily (15 hours over 7 days) Estimated Hrs Per Day: 1.5 hours per day Agreement: Yes Rehab Potential: Fair Time/GCodes Start Time: 09:30 Stop Time: 11:15 Total Time Billed (hr/min): 65 Billed Treatment Time visit, 60 minutes ADL 9:30 to 9:45, 10:30 to 11:20 DASIA DENNIS OT Mar 16, 2017 13:21
--- NOTE | 2017-03-16 15:48 | Therapy Group Daily Note ---
Therapy Daily Group Note Patient Education Topic Other List Below (pain) Exercises LE Seated Exercise, UE Exercise, Other (breathing) Other/Notes Pt ambulated to OT/PT group with min A using FWW. OT/PT group consisted of introductions (name, place living, what do you do to relax), speaker for pain education, breathing techniques and UE/LE seated exercises. Pt was attentive throughout group. Contributed to discussions by giving personal examples of how to work through pain. Pt was appropriate with introductions and interactions with other group members. Pt verbalized understanding of pain education. Pt was able to complete breathing techniques appropriately. Able to complete UE/LE seated exercises. Pt ambulated back to room and requested to use toilet. Min A for toileting and transfer. After therapy, pt sitting in recliner with visitor present in room. Call light/phone in reach. All needs met in room. Start Time: 13:00 Stop Time: 14:05 Total Billed Treatment Time: 65 Total Billed Treatment 1-GRP RAY CUI Mar 16, 2017 15:48
[2017-03-16] MEDS: warFARin 5 MG (COUMADIN) TAB PO SCH (17:52)
[2017-03-16 18:02] VITALS: BP 112/77
--- NOTE | 2017-03-16 18:30 | PM & R (SOAP) Progress Note ---
Subjective Time Seen by Provider: 18:35 Subjective/Events-last exam Patient was seen in his room this evening Patient SBA for transfers Progressing well with therapies Coumadin resumed for A FIB Prednisone on taper Discussed case with RN Objective Exam Last Set of Vital Signs Vital Signs Date Time Temp Pulse Resp B/P (MAP) Pulse Ox O2 Delivery O2 Flow Rate FiO2 03/16/17 18:02 97.6 70 18 112/77 98 Nasal Cannula 3.00 Capillary Refill : I&O Intake and Output 03/16/17 00:00 Intake Total 2070 ml Balance 2070 ml Intake Oral 2070 ml # Voids 7 # Bowel Movements 2 General: Alert, Oriented X3, Cooperative, No Acute Distress HEENT: Atraumatic, PERRLA, EOMI, Mucous Memb Moist/[place], Other (02 by N/C in place) Neck: Supple, No JVD Lungs: Clear to Auscultation Heart: Regular Rate Abdomen: Normal Bowel Sounds, Soft, No Tenderness Extremities: No Edema Neuro: Sensation Intact, Other (strength 4+/5 except hip flexion 3+/5 Left ankle fused) Results Lab Laboratory Tests 03/16/17 09:00: Prothrombin Time 14.5, INR Comment 1.2 Assessment/Plan Assessment 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 Black [facility]-improving 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
[2017-03-16] MEDS: QUEtiapine 25 MG (SEROquel) TAB IMMEDIATE RELEASE PO SCH (20:04)
[2017-03-16] MEDS: POLYETHYLENE GLYCOL 17 GM (MIRALAX) PACK PO SCH (20:05)
[2017-03-17] MEDS: HYDROcodone/APAP 5 MG/325 MG (LORTAB) TAB PO PRN ×5 (00:06→21:05)
[2017-03-17 04:13] VITALS: BP 103/66
[2017-03-17] MEDS: PANTOPRAZOLE 20 MG TABLET (PROTONIX) PO SCH (05:51)
[2017-03-17] MEDS: OMEGA 3 (FISH OIL) 1000 MG CAP PO SCH ×2 (05:51→17:39)
[2017-03-17] MEDS: KCL 10 MEQ TAB (MICRO K) PO SCH (05:52)
[2017-03-17] MEDS: MULTIVIT W/MINERALS TAB (THERAGRAN M) PO SCH (05:52)
[2017-03-17 07:24] LABS: BASOPHILS % (AUTO) 1 % (0-10); EOSINOPHILS # (AUTO) 0.2 10^3/uL (0.0-0.3); EOSINOPHILS % (AUTO) 2 % (0-10); LYMPHOCYTES % (AUTO) 12 % (12-44); MEAN CORPUSCULAR HEMOGLOBIN 30 PG (25-34); MEAN CORPUSCULAR HGB CONC 34 G/DL (32-36); MEAN CORPUSCULAR VOLUME 91 FL (80-99); MEAN PLATELET VOLUME 10.7 FL (7.4-10.4); MONOCYTES # (AUTO) 0.8 X 10^3 (0.0-1.0); MONOCYTES % (AUTO) 9 % (0-12); NEUTROPHILS # (AUTO) 6.5 X 10^3 (1.8-7.8); NEUTROPHILS % (AUTO) 76 % (42-75); PLATELET COUNT 319 10^3/uL (130-400); WHITE BLOOD COUNT 8.6 10^3/uL (4.3-11.0)
[2017-03-17 07:34] LABS: INR 1.2 (0.8-1.4); PROTHROMBIN TIME PATIENT 14.5 SEC (12.2-14.7)
[2017-03-17] MEDS: ASPIRIN E.C. 81 MG (ECOTRIN) TAB PO SCH (08:36)
[2017-03-17] MEDS: FUROSEMIDE 40 MG (LASIX) TAB PO SCH (08:36)
[2017-03-17] MEDS: DIGOXIN 0.125 MG (LANOXIN) TAB PO SCH (08:36)
[2017-03-17] MEDS: ATENOLOL 50 MG (TENORMIN) TAB PO SCH (08:36)
[2017-03-17] MEDS: MELOXICAM 7.5 MG (MOBIC) TABLET PO SCH (08:36)
[2017-03-17] MEDS: DOCUSATE SODIUM 100 MG (COLACE) CAP PO SCH ×2 (08:37→20:59)
--- NOTE | 2017-03-17 08:51 | Progress Note (SOAP) ---
Subjective Time Seen by Provider: 08:50 Subjective/Events-last exam patient complaining of pain. Compression fraction. Atrial fib. Patient working progress Objective Exam Vital Signs Date Time Temp Pulse Resp B/P (MAP) Pulse Ox O2 Delivery O2 Flow Rate FiO2 03/17/17 04:13 97.3 65 18 103/66 98 Nasal Cannula 3.00 03/16/17 21:00 Nasal Cannula 3.00 03/16/17 18:02 97.6 70 18 112/77 98 Nasal Cannula 3.00 03/16/17 15:04 Nasal Cannula 3.00 03/16/17 09:00 Nasal Cannula 3.00 I & O 03/17/17 07:00 Intake Total 2700 ml Balance 2700 ml Capillary Refill : General Appearance: No Apparent Distress, WD/WN HEENT: Normal ENT Inspection Neck: Full Range of Motion, Normal Inspection Respiratory: No Accessory Muscle Use, No Respiratory Distress Results Lab Laboratory Tests 03/16/17 09:00: Prothrombin Time 14.5, INR Comment 1.2 03/17/17 06:52: Prothrombin Time 14.5, INR Comment 1.2, White Blood Count 8.6, Red Blood Count 4.70, Hemoglobin 14.3, Hematocrit 43, Mean Corpuscular Volume 91, Mean Corpuscular Hemoglobin 30, Mean Corpuscular Hemoglobin Concent 34, Red Cell Distribution Width 17.0H, Platelet Count 319, Mean Platelet Volume 10.7H, Neutrophils (%) (Auto) 76H, Lymphocytes (%) (Auto) 12, Monocytes (%) (Auto) 9, Eosinophils (%) (Auto) 2, Basophils (%) (Auto) 1, Neutrophils # (Auto) 6.5, Lymphocytes # (Auto) 1.0, Monocytes # (Auto) 0.8, Eosinophils # (Auto) 0.2, Basophils # (Auto) 0.0 Assessment/Plan Assessment/Plan Assess & Plan/Chief Complaint compression fracture. Atrial fibrillation. COPD using oxygen L1 compression fracture .. . 03/13/17. L1 compression fracture. Atrial fibrillation. COPD. Patient on oxygen.. . 03/16/17. Compression fracture. atrial fibrillation. COPD Patient does not feel he is of fall candidate. Patient put on Coumadin. . 03/17/17. Compression fracture. Atrial fib.. COPD. Patient having some pain Clinical Quality Measures DVT/VTE Risk/Contraindication: Risk Factor Score Per Nursin RFS Level Per Nursing on Admit: 4+=Very High MIKO KELLY DO Mar 17, 2017 08:51
--- NOTE | 2017-03-17 09:17 | Physical Therapy Daily Note ---
PT Daily Note-Current Subjective Pt sitting in recliner upon arrival. Pt reports pain of 8/10 to start tx and explains will get higher with certain activities. Pt reports needing to use restroom before leaving room for tx. Pt agrees to PT. Pain Numeric Pain Scale: 8 Location: Medial, Dorsal Location Body Site: Back Pain Description: Ache, Tightness Mental Status Patient Orientation: Person, Place, Time, Situation Attachments: Oxygen (3L) Transfers Functional [place] Measure 0=Not Assessed/NA 4=Minimal Assistance 1=Total Assistance 5=Supervision or Setup 2=Maximal Assistance 6=Modified [place] 3=Moderate Assistance 7=Complete IndependenceIRFPAI Quality Coding Scale 6 Independent with activity with or without an assistive device 5 Patient requires set up or clean up by helper. Patient completes activity by themselves 4 Supervision or touching assist (CGA). [place] provide cues , steadying assist 3 The helper provides less than half the effort to complete the activity 2 The helper provides more than half the effort to complete the activity 1 Dependent. The helper does all the effort to complete an activity 7 Patient refused to complete or attempt activity 9 The patient did not perform the activity before the current illness or injury 88 Not attempted due to Medical conditions or safety concerns Scootin Supine to/from Sit: 5 Sit to Stand (QC): 5 Weight Bearing Weight Bearing Restriction: Full Weight Bearing Location Restriction: LE Bilateral Gait Training Does the Patient Walk?: Yes Distance (FIM): 3=150 ft Distance: 175' Walk 10 feet (QC): 5 Walk 50 ft with 2 Turns(QC): 5 Walk 150 ft (QC): 5 Gait Level of Assist: 5 Gait Persons Needed: 1 Gait Assistive Device: FWW Pt is normalizing gait pattern, pt assists with managing O2 tank. Stair Training Stair Training: Handrails/: No handrail #of Steps: 4 1 Step (curb) (QC): 3 4 Steps (QC): 3 Stairs: Pattern: Step to Level of Assist: 3 Exercises Seated Therapy Exercises: Ankle pumps, Long arc quads, Hip flexion, Kicking activity Seated Reps: 15 Treatments Pt transferred from recliner to standing using FWW at [facility]. Pt used restroom before leaving room for tx. Pt ambulated using FWW at [facility]. Pt practiced log rolling on mat and stairs using FWW and step up on blue step. Pt also completed Seated Exercise. Pt returned to room to rest in recliner at end of tx with all needs met. Assessment Current Status: Fair Progress Pt has improved with mobility and transfers. PT Short Term Goals Short Term Goals Time Frame: Mar 18, 2017 Gait (FIM): 5 Gait Distance Comment: 200' Gait Level of Assist: 5 Gait Assistive Device: FWW PT Snf Goals Snf Goals PT Snf Goals Time Frame: Apr 01, 2017 Transfers (B,C,W/C) (FIM): 6 Sit to Lying (QC): 6 Lying-Sitting on Side/Bed(QC): 6 Sit to Stand (QC): 6 Rollin Roll Left to Right (QC): 6 Chair/Wsd-ot-Kkdnp Xfer(QC): 6 Car Transfer (QC): 5 Gait (FIM): 6 Distance: 300' Walk 10 feet (QC): 6 Walk 10ft-Uneven Surface(QC): 6 Walk 50ft with 2 Turns (QC): 6 Walk 150 ft (QC): 6 Gait Assistive Device: FWW Stairs (FIM): 5 # of Steps: 12 1 Step (curb) (QC): 4 4 Steps (QC): 4 12 Steps (QC): 4 Stairs Level Of Assist: 5 PT Plan Problem List Problem List: Activity Tolerance, Gait, Bed Mobility Treatment/Plan Treatment Plan: Continue Plan of Care Treatment Plan: Bed Mobility, Education, Functional Activity Jose Guadalupe, Functional Strength, Group Therapy, Gait, Safety, Therapeutic Exercise, Transfers Treatment Duration: Apr 01, 2017 Frequency: At least 5-7 days/Wk (IRF) Estimated Hrs Per Day: 1.5 hours per day Patient and/or Family Agrees t: Yes Safety Risks/Education Patient Education: Gait Training, Transfer Techniques, Steps, Correct Positioning, Safety Issues Teaching Recipient: Patient Teaching Methods: Discussion Response to Teaching: Verbalize Understanding Time/GCodes Time In: 815 Time Out: 915 Total Billed Treatment Time: 60 Total Billed Treatment visit, GT (15m), EX (15m) & FA x2 (30m) CHINYERE STAUFFER HOUSEKEEPING AND LAUNDRY TEAM LEADER Mar 17, 2017 09:17
--- NOTE | 2017-03-17 13:37 | Occupational Ther Daily Note ---
OT Current Status-Daily Note Subjective Pt. states, "i feel like I am getting worse each day." Does not report a pain level. Appearance Pt. agrees to therapy with encouragement. Mental Status/Objective Patient Orientation: Person, Place Functional [place] Measure 0=Not Assessed/NA 4=Minimal Assistance 1=Total Assistance 5=Supervision or Setup 2=Maximal Assistance 6=Modified [place] 3=Moderate Assistance 7=Complete [place] ADL-Treatment Functional [place] Measure 0=Not Assessed/NA 4=Minimal Assistance 1=Total Assistance 5=Supervision or Setup 2=Maximal Assistance 6=Modified [place] 3=Moderate Assistance 7=Complete IndependenceIRFPAI Quality Coding Scale 6 Independent with activity with or without an assistive device 5 Patient requires set up or clean up by helper. Patient completes activity by themselves 4 Supervision or touching assist (CGA). [place] provide cues , steadying assist 3 The helper provides less than half the effort to complete the activity 2 The helper provides more than half the effort to complete the activity 1 Dependent. The helper does all the effort to complete an activity 7 Patient refused to complete or attempt activity 9 The patient did not perform the activity before the current illness or injury 88 Not attempted due to Medical conditions or safety concerns Grooming (FIM): 5 (Set up to comb hair.) Bathing (FIM): 4 (CGA in stance to dry rear betty area.) Shower/Bathe Self (QC): 4 Upper Body (FIM): 5 Upper Body Dressing (QC): 5 Lower Body Dressing (FIM): 3 (Pt. fatigued at end of shower. Was able to get underwear and pants around feet, but requires assistance to don over hips. Max assist to don socks and shoes.) Lower Body Dressing (QC): 2 On/Off Footwear (QC): 2 Transfers (B, C, W/C) (FIM): 4 (CGA sit-stand. CGA sit-supine and supine-sit.) Other Treatment At beginning of treatment, pt. refused shower. States that he is already dressed. Agrees to practicing getting into/out of bed. OT raised bed like his at home, and took down rails, to simulate his. Put chair at end of bed to practice getting feet into bed. Pt. encouraged to use log rolling method. Pt. unable to do this. Pt. requires CGA to get into bed. However, starts to throw self backward to and this causes him pain. Has difficulty getting self onto side and into bed. Pt. then agreed to shower. Ambulated to shower and able to bathe self with CGA for transfers. Pt. exhausted and fatigued. Required increased assistance to dress, and did not have time to practice equipment after shower, as he was too tired. Pt. ambulated back to bed after dressing, and OT met all needs. Pt. states, "that felt really good." Education OT Patient Education: Correct positioning, Energy conservation, Home exercise program, Modified ADL techniques, Progress toward Goal/Update tx plan, Purpose of tx/functional activities, Reviewed precautions, Rehab process, Transfer techniques, Use of adapted equipment Teaching Recipient: Patient Teaching Methods: Demonstration Response to Teaching: Verbalize Understanding, Return Demonstration OT Short Term Goals Short Term Goals Time Frame: Mar 20, 2017 Bathing(FIM): 5 Toilet/Commode Transfer(FIM): 5 Shower Transfer(FIM): 5 Additional Short Term Goals: 2-Verbalize Understanding, 3-ImproveStrength/Jose Guadalupe 1=Demonstrate adherence to instructed precautions during ADL tasks. 2=Patient will verbalize/demonstrate understanding of assistive devices/ modifications for ADL. 3=Patient will improve strength/tolerance for activity to enable patient to perform ADL's. OT Custodial Goals Traveling [employer]ary Goals Time Frame: Apr 03, 2017 Eating (FIM): 6 Eating (QC): 6 Groomin Oral Hygiene (QC): 6 Bathing(FIM): 6 Shower/Bathe Self (QC): 6 Upper Body Dressing(FIM): 6 Upper Body Dressing (QC): 6 Lower Body Dressing(FIM): 6 Lower Body Dressing (QC): 6 On/Off Footwear (QC): 6 Toileting(FIM): 6 Toileting Hygiene (QC): 6 Toilet/Commode Transfer(FIM): 6 Toilet/Commode Transfer (QC): 6 Shower Transfer(FIM): 6 Additional Goals: 2-Verbalize Understanding, 3-ImproveStrength/Jose Guadalupe 1=Demonstrate adherence to instructed precautions during ADL tasks. 2=Patient will verbalize/demonstrate understanding of assistive devices/ modifications for ADL. 3=Patient will improve strength/tolerance for activity to enable patient to perform ADL's. OT Education/Plan Problem List/Assessment Assessment: Decreased Activ Tolerance, Dependent Transfers, Impaired Bed Mobility, Impaired Funct Balance, Impaired I ADL's, Impaired Self-Care Skills Pt would benefit from skilled OT to increase his independence in basic self care to allow him to safely return home with and to decrease caregiver burden Discharge Recommendations Plan/Recommendations: Continue POC Therapy D/C Recommendations: Home w/ Family Support, Occupational Therapy Home Care Equpiment Recommendations-D/C: Bath Chair, Hip Kit Treatment Plan/Plan of Care Treatment,Training & Education: Yes Patient would benefit from OT for education, treatment and training to promote independence in ADL's, mobility, safety and/or upper extremity function for ADL' s. Plan of Care: ADL Retraining, Functional Mobility, Group Exercise/Act as Ind ( education, exercise, activity tolerance, functional activities, socialization), UE Funct Exercise/Act, UE Neuromus Re-Ed/Coord Treatment Duration: Apr 03, 2017 Frequency: At least 5-7 days/Wk (IRF) (15 hours over 7 days) Estimated Hrs Per Day: 1.5 hours per day Agreement: Yes Rehab Potential: Good Time/GCodes Start Time: 10:20 Stop Time: 11:20 Total Time Billed (hr/min): 60 Billed Treatment Time 1, ADL x 4 KELL HERNANDEZ OT Mar 17, 2017 13:36
--- NOTE | 2017-03-17 14:27 | PM & R (SOAP) Progress Note ---
Subjective Time Seen by Provider: 08:00 Subjective/Events-last exam Patient was seen in his room this AM Patient SBA for transfers Patient c/o increased pain with mobilization but hesitant to use pain medicine Tylenol scheduled for AM.INR noted Coumadin resumed Objective Exam Last Set of Vital Signs Vital Signs Date Time Temp Pulse Resp B/P (MAP) Pulse Ox O2 Delivery O2 Flow Rate FiO2 03/17/17 08:22 Nasal Cannula 3.00 03/17/17 04:13 97.3 65 18 103/66 98 Capillary Refill : I&O Intake and Output 03/17/17 00:00 Intake Total 2700 ml Balance 2700 ml Intake Oral 2700 ml # Voids 10 # Bowel Movements 5 General: Alert, Oriented X3, Cooperative, No Acute Distress HEENT: Atraumatic, PERRLA, EOMI, Mucous Memb Moist/[place], Other (02 by N/C in place) Neck: Supple, No JVD Lungs: Clear to Auscultation Heart: Regular Rate Abdomen: Normal Bowel Sounds, Soft, No Tenderness Extremities: No Edema Neuro: Sensation Intact, Other (strength 4+/5 except hip flexion 3+/5 Left ankle fused) Results Lab Laboratory Tests 03/16/17 09:00: Prothrombin Time 14.5, INR Comment 1.2 03/17/17 06:52: Prothrombin Time 14.5, INR Comment 1.2, White Blood Count 8.6, Red Blood Count 4.70, Hemoglobin 14.3, Hematocrit 43, Mean Corpuscular Volume 91, Mean Corpuscular Hemoglobin 30, Mean Corpuscular Hemoglobin Concent 34, Red Cell Distribution Width 17.0H, Platelet Count 319, Mean Platelet Volume 10.7H, Neutrophils (%) (Auto) 76H, Lymphocytes (%) (Auto) 12, Monocytes (%) (Auto) 9, Eosinophils (%) (Auto) 2, Basophils (%) (Auto) 1, Neutrophils # (Auto) 6.5, Lymphocytes # (Auto) 1.0, Monocytes # (Auto) 0.8, Eosinophils # (Auto) 0.2, Basophils # (Auto) 0.0 Assessment/Plan Assessment 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 Black [facility]-improving 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
--- NOTE | 2017-03-17 15:09 | Therapy Group Daily Note ---
Therapy Daily Group Note Patient Education Topic Home Safety Other/Notes Pt ambulated to PT/OT Group using FWW and O2 tank. Group consisted of Introduction (Name, Where you are from and what you use to make home safer or easier to accomplish tasks), ARU meeting description and Home Safety education and discussion. Education consisted of ambulating stairs and how to do so safely, how to ambulate around house & avoid tripping hazards as well as proper/ safe way to sit or stand from seated surface. Pt participated in group discussion. Pt ambulated back to room to rest in recliner at end of Group with all needs met. Start Time: 13:00 Stop Time: 14:15 Total Billed Treatment Time: 75 Total Billed Treatment 1, GRP CHINYERE STAUFFER VEGETABLE CUTTER Mar 17, 2017 15:09
[2017-03-17] MEDS: warFARin 5 MG (COUMADIN) TAB PO SCH (17:39)
[2017-03-17 18:26] VITALS: BP 116/76
[2017-03-17] MEDS: QUEtiapine 25 MG (SEROquel) TAB IMMEDIATE RELEASE PO SCH (20:59)
[2017-03-17] MEDS: POLYETHYLENE GLYCOL 17 GM (MIRALAX) PACK PO SCH (21:00)
[2017-03-18] MEDS: PANTOPRAZOLE 20 MG TABLET (PROTONIX) PO SCH (06:26)
[2017-03-18] MEDS: predniSONE 10 MG TAB PO SCH (06:26)
[2017-03-18] MEDS: MULTIVIT W/MINERALS TAB (THERAGRAN M) PO SCH (06:26)
[2017-03-18] MEDS: OMEGA 3 (FISH OIL) 1000 MG CAP PO SCH ×2 (06:26→17:33)
[2017-03-18] MEDS: KCL 10 MEQ TAB (MICRO K) PO SCH (06:26)
[2017-03-18] MEDS: HYDROcodone/APAP 5 MG/325 MG (LORTAB) TAB PO PRN ×3 (06:27→22:06)
[2017-03-18 06:50] VITALS: BP 101/62
[2017-03-18 07:42] LABS: INR 1.3 (0.8-1.4); PROTHROMBIN TIME PATIENT 16.1 SEC (12.2-14.7)
--- NOTE | 2017-03-18 08:43 | Progress Note (SOAP) ---
Subjective Time Seen by Provider: 08:40 Subjective/Events-last exam patient feeling better. Patient states he is doing better. Patient has more endurance. Patient slept last night.. Patient positive. Compression fracture. Atrial fib. COPD. fall Objective Exam Vital Signs Date Time Temp Pulse Resp B/P (MAP) Pulse Ox O2 Delivery O2 Flow Rate FiO2 03/18/17 06:50 97.9 93 20 101/62 98 03/18/17 02:03 Nasal Cannula 3.00 03/17/17 20:45 Nasal Cannula 3.00 03/17/17 18:26 97.3 91 16 116/76 95 I & O 03/18/17 07:00 Intake Total 1480 ml Balance 1480 ml Capillary Refill : General Appearance: No Apparent Distress, WD/WN HEENT: Normal ENT Inspection Neck: Full Range of Motion, Normal Inspection Respiratory: Chest Non Tender, No Accessory Muscle Use, No Respiratory Distress , Decreased Breath Sounds Cardiovascular: Irregularly Irregular Results Lab Laboratory Tests 03/18/17 07:15: Prothrombin Time 16.1H, INR Comment 1.3 Assessment/Plan Assessment/Plan Assess & Plan/Chief Complaint compression fracture. Atrial fibrillation. COPD using oxygen L1 compression fracture .. . 03/13/17. L1 compression fracture. Atrial fibrillation. COPD. Patient on oxygen.. . 03/16/17. Compression fracture. atrial fibrillation. COPD Patient does not feel he is of fall candidate. Patient put on Coumadin. . 03/17/17. Compression fracture. Atrial fib.. COPD. Patient having some pain. . . Compression fracture. A. fib. COPD. Patient slept last night. Patient having more endurance. Patient happy today Clinical Quality Measures DVT/VTE Risk/Contraindication: Risk Factor Score Per Nursin RFS Level Per Nursing on Admit: 4+=Very High MIKO KELLY DO Mar 18, 2017 08:43
[2017-03-18] MEDS: DIGOXIN 0.125 MG (LANOXIN) TAB PO SCH (08:55)
[2017-03-18] MEDS: MELOXICAM 7.5 MG (MOBIC) TABLET PO SCH (08:55)
[2017-03-18] MEDS: ATENOLOL 50 MG (TENORMIN) TAB PO SCH (08:56)
[2017-03-18] MEDS: DOCUSATE SODIUM 100 MG (COLACE) CAP PO SCH ×2 (08:56→20:41)
[2017-03-18] MEDS: FUROSEMIDE 40 MG (LASIX) TAB PO SCH (08:56)
[2017-03-18] MEDS: ASPIRIN E.C. 81 MG (ECOTRIN) TAB PO SCH (08:56)
--- NOTE | 2017-03-18 08:59 | PM & R (SOAP) Progress Note ---
Subjective Time Seen by Provider: 08:10 Subjective/Events-last exam Patient was seen in his room this AM Patient SBA for transfers Pain control better Review of Systems Musculoskeletal: back pain Objective Exam Last Set of Vital Signs Vital Signs Date Time Temp Pulse Resp B/P (MAP) Pulse Ox O2 Delivery O2 Flow Rate FiO2 03/18/17 06:50 97.9 93 20 101/62 98 03/18/17 02:03 Nasal Cannula 3.00 Capillary Refill : I&O Intake and Output 03/18/17 00:00 Intake Total 1630 ml Balance 1630 ml Intake Oral 1630 ml # Voids 7 # Bowel Movements 4 General: Alert, Oriented X3, Cooperative, No Acute Distress HEENT: Atraumatic, PERRLA, EOMI, Mucous Memb Moist/[place], Other (02 by N/C in place) Neck: Supple, No JVD Lungs: Clear to Auscultation Heart: Regular Rate Abdomen: Normal Bowel Sounds, Soft, No Tenderness Extremities: No Edema Neuro: Sensation Intact, Other (strength 4+/5 except hip flexion 3+/5 Left ankle fused) Results Lab Laboratory Tests 03/16/17 09:00: Prothrombin Time 14.5, INR Comment 1.2 03/17/17 06:52: Prothrombin Time 14.5, INR Comment 1.2, White Blood Count 8.6, Red Blood Count 4.70, Hemoglobin 14.3, Hematocrit 43, Mean Corpuscular Volume 91, Mean Corpuscular Hemoglobin 30, Mean Corpuscular Hemoglobin Concent 34, Red Cell Distribution Width 17.0H, Platelet Count 319, Mean Platelet Volume 10.7H, Neutrophils (%) (Auto) 76H, Lymphocytes (%) (Auto) 12, Monocytes (%) (Auto) 9, Eosinophils (%) (Auto) 2, Basophils (%) (Auto) 1, Neutrophils # (Auto) 6.5, Lymphocytes # (Auto) 1.0, Monocytes # (Auto) 0.8, Eosinophils # (Auto) 0.2, Basophils # (Auto) 0.0 03/18/17 07:15: Prothrombin Time 16.1H, INR Comment 1.3 Assessment/Plan Assessment 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 Black [facility]-improving 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
[2017-03-18] MEDS: ZINC OXIDE 16% OINT (BUTT PASTE) 113 GM TUBE TOP PRN (09:30)
--- NOTE | 2017-03-18 10:26 | Occupational Ther Daily Note ---
OT Current Status-Daily Note Subjective Pt. states that he slept well last night. Appearance Pt. up in chair. Agrees to shower. Mental Status/Objective Patient Orientation: Person, Place Functional [place] Measure 0=Not Assessed/NA 4=Minimal Assistance 1=Total Assistance 5=Supervision or Setup 2=Maximal Assistance 6=Modified [place] 3=Moderate Assistance 7=Complete [place] ADL-Treatment Functional [place] Measure 0=Not Assessed/NA 4=Minimal Assistance 1=Total Assistance 5=Supervision or Setup 2=Maximal Assistance 6=Modified [place] 3=Moderate Assistance 7=Complete IndependenceIRFPAI Quality Coding Scale 6 Independent with activity with or without an assistive device 5 Patient requires set up or clean up by helper. Patient completes activity by themselves 4 Supervision or touching assist (CGA). [place] provide cues , steadying assist 3 The helper provides less than half the effort to complete the activity 2 The helper provides more than half the effort to complete the activity 1 Dependent. The helper does all the effort to complete an activity 7 Patient refused to complete or attempt activity 9 The patient did not perform the activity before the current illness or injury 88 Not attempted due to Medical conditions or safety concerns Grooming (FIM): 5 (Pt. able to comb hair at sink while standing at walker with SBA.) Bathing (FIM): 4 (CGA in stance to wash rear betty area. Pt. is able to wash all areas, including bilateral feet with sponge.) Shower/Bathe Self (QC): 4 Upper Body (FIM): 5 Upper Body Dressing (QC): 5 Lower Body Dressing (FIM): 3 (Pt. is able to thread bilateral feet in underwear and shorts. CGA for stance to gizzard puller hips. Required assistance to don socks and shoes due to fatigue. Able to doff with SBA using equipment, and max assistance to don them.) Lower Body Dressing (QC): 3 On/Off Footwear (QC): 3 Transfers (B, C, W/C) (FIM): 4 Shower Transfer(FIM): 4 Other Treatment Pt. agreed to shower. Stood with CGA. Pt. fatigues easily. Pt. on 3 L O2 in shower. At end of shower, pt. at 90% saturation. At end of shower, agrees to ambulate back to chair. All needs met up in chair. Tolerated treatment well. Education OT Patient Education: Correct positioning, Modified ADL techniques, Progress toward Goal/Update tx plan, Purpose of tx/functional activities, Reviewed precautions, Rehab process, Safety issues, Transfer techniques, Use of adapted equipment Teaching Recipient: Patient Teaching Methods: Demonstration, Discussion Response to Teaching: Verbalize Understanding, Return Demonstration OT Short Term Goals Short Term Goals Time Frame: Mar 20, 2017 Bathing(FIM): 5 Toilet/Commode Transfer(FIM): 5 Shower Transfer(FIM): 5 Additional Short Term Goals: 2-Verbalize Understanding, 3-ImproveStrength/Jose Guadalupe 1=Demonstrate adherence to instructed precautions during ADL tasks. 2=Patient will verbalize/demonstrate understanding of assistive devices/ modifications for ADL. 3=Patient will improve strength/tolerance for activity to enable patient to perform ADL's. OT Clinical Mental Health Counselor Goals Clinical Mental Health Counselor Goals Time Frame: Apr 03, 2017 Eating (FIM): 6 Eating (QC): 6 Groomin Oral Hygiene (QC): 6 Bathing(FIM): 6 Shower/Bathe Self (QC): 6 Upper Body Dressing(FIM): 6 Upper Body Dressing (QC): 6 Lower Body Dressing(FIM): 6 Lower Body Dressing (QC): 6 On/Off Footwear (QC): 6 Toileting(FIM): 6 Toileting Hygiene (QC): 6 Toilet/Commode Transfer(FIM): 6 Toilet/Commode Transfer (QC): 6 Shower Transfer(FIM): 6 Additional Goals: 2-Verbalize Understanding, 3-ImproveStrength/Jose Guadalupe 1=Demonstrate adherence to instructed precautions during ADL tasks. 2=Patient will verbalize/demonstrate understanding of assistive devices/ modifications for ADL. 3=Patient will improve strength/tolerance for activity to enable patient to perform ADL's. OT Education/Plan Problem List/Assessment Assessment: Decreased Activ Tolerance, Impaired I ADL's, Impaired Self-Care Skills Pt would benefit from skilled OT to increase his independence in basic self care to allow him to safely return home with and to decrease caregiver burden Discharge Recommendations Plan/Recommendations: Continue POC Therapy D/C Recommendations: Home w/ Family Support Equpiment Recommendations-D/C: Bath Chair, Hip Kit Target Placement Home with spouse. However, pt. is adamant that he does not want to go home until he is fully independent, so that his does not have to help him at home. Treatment Plan/Plan of Care Treatment,Training & Education: Yes Patient would benefit from OT for education, treatment and training to promote independence in ADL's, mobility, safety and/or upper extremity function for ADL' s. Plan of Care: ADL Retraining, Functional Mobility, Group Exercise/Act as Ind ( education, exercise, activity tolerance, functional activities, socialization), UE Funct Exercise/Act, UE Neuromus Re-Ed/Coord Treatment Duration: Apr 03, 2017 Frequency: At least 5-7 days/Wk (IRF) (15 hours over 7 days) Estimated Hrs Per Day: 1.5 hours per day Agreement: Yes Rehab Potential: Good Time/GCodes Start Time: 09:15 Stop Time: 10:15 Total Time Billed (hr/min): 60 Billed Treatment Time 1, ADL x 4 KELL HERNANDEZ OT Mar 18, 2017 10:26
--- NOTE | 2017-03-18 10:34 | Physical Therapy Daily Note ---
PT Daily Note-Current Subjective Pt sitting in recliner upon arrival. Pt reports unsure about therapy and staff reporting that pt will go home. Pt isn't ready to go home and reports no one else at home. Pt agrees to PT. Pain Location: No Pain Reported Mental Status Attachments: Oxygen (3-5L) Transfers Functional [place] Measure 0=Not Assessed/NA 4=Minimal Assistance 1=Total Assistance 5=Supervision or Setup 2=Maximal Assistance 6=Modified [place] 3=Moderate Assistance 7=Complete IndependenceIRFPAI Quality Coding Scale 6 Independent with activity with or without an assistive device 5 Patient requires set up or clean up by helper. Patient completes activity by themselves 4 Supervision or touching assist (CGA). [place] provide cues , steadying assist 3 The helper provides less than half the effort to complete the activity 2 The helper provides more than half the effort to complete the activity 1 Dependent. The helper does all the effort to complete an activity 7 Patient refused to complete or attempt activity 9 The patient did not perform the activity before the current illness or injury 88 Not attempted due to Medical conditions or safety concerns Scootin Sit to/from Stand: 5 Sit to Stand (QC): 5 Weight Bearing Weight Bearing Restriction: Full Weight Bearing Location Restriction: LE Bilateral Gait Training Does the Patient Walk?: Yes Distance (FIM): 3=150 ft Distance: 350' Walk 10 feet (QC): 5 Walk 50 ft with 2 Turns(QC): 5 Walk 150 ft (QC): 5 Gait Level of Assist: 5 Gait Persons Needed: 1 Gait Assistive Device: FWW Pt walks slow but steady, no LOB Wheelchair Training Does the Pt Use a Wheelchair?: No Exercises Seated Therapy Exercises: Ankle pumps, Long arc quads, Hip flexion, Kicking activity Seated Reps: 15 NuStep Minutes: 12 NuStep Workload: 4 Treatments Pt transferred from recliner to standing using FWW at SBA. Pt ambulated using FWW at A. Pt completed Seated Ex and NuStep for 12m at Workload 4. Pt returns to room to rest in recliner at end of tx with all needs met. Assessment Current Status: Good Progress Pt continues to make progress with independence and safety of transfers and mobility as well as increased activity tolerance. PT Short Term Goals Short Term Goals Time Frame: Mar 18, 2017 Gait (FIM): 5 Gait Distance Comment: 200' Gait Level of Assist: 5 Gait Assistive Device: FWW PT Detention Goals [employer] Supervisor Goals PT [employer] Supervisor Goals Time Frame: Apr 01, 2017 Transfers (B,C,W/C) (FIM): 6 Sit to Lying (QC): 6 Lying-Sitting on Side/Bed(QC): 6 Sit to Stand (QC): 6 Rollin Roll Left to Right (QC): 6 Chair/Pjk-im-Xaxpn Xfer(QC): 6 Car Transfer (QC): 5 Gait (FIM): 6 Distance: 300' Walk 10 feet (QC): 6 Walk 10ft-Uneven Surface(QC): 6 Walk 50ft with 2 Turns (QC): 6 Walk 150 ft (QC): 6 Gait Assistive Device: FWW Stairs (FIM): 5 # of Steps: 12 1 Step (curb) (QC): 4 4 Steps (QC): 4 12 Steps (QC): 4 Stairs Level Of Assist: 5 PT Plan Problem List Problem List: Activity Tolerance, Safety, Gait Treatment/Plan Treatment Plan: Continue Plan of Care Treatment Plan: Bed Mobility, Education, Functional Activity Jose Guadalupe, Functional Strength, Group Therapy, Gait, Safety, Therapeutic Exercise, Transfers Treatment Duration: Apr 01, 2017 Frequency: At least 5-7 days/Wk (IRF) Estimated Hrs Per Day: 1.5 hours per day Patient and/or Family Agrees t: Yes Safety Risks/Education Patient Education: Gait Training, Transfer Techniques, Correct Positioning, Safety Issues Teaching Recipient: Patient Teaching Methods: Discussion Response to Teaching: Verbalize Understanding Time/GCodes Time In: 815 Time Out: 915 Total Billed Treatment Time: 60 Total Billed Treatment visit, FA (15m), EX x2 (30m) & GT (15m) CHINYERE STAUFFER FRIT BURNER Mar 18, 2017 10:33
--- NOTE | 2017-03-18 14:21 | Occupational Ther Daily Note ---
OT Current Status-Daily Note Subjective Pt sitting in chair with family present, agrees to treatment. Pt has no c/o pain. Mental Status/Objective Functional [place] Measure 0=Not Assessed/NA 4=Minimal Assistance 1=Total Assistance 5=Supervision or Setup 2=Maximal Assistance 6=Modified [place] 3=Moderate Assistance 7=Complete [place] Attachments: Oxygen ADL-Treatment Functional [place] Measure 0=Not Assessed/NA 4=Minimal Assistance 1=Total Assistance 5=Supervision or Setup 2=Maximal Assistance 6=Modified [place] 3=Moderate Assistance 7=Complete IndependenceIRFPAI Quality Coding Scale 6 Independent with activity with or without an assistive device 5 Patient requires set up or clean up by helper. Patient completes activity by themselves 4 Supervision or touching assist (CGA). [place] provide cues , steadying assist 3 The helper provides less than half the effort to complete the activity 2 The helper provides more than half the effort to complete the activity 1 Dependent. The helper does all the effort to complete an activity 7 Patient refused to complete or attempt activity 9 The patient did not perform the activity before the current illness or injury 88 Not attempted due to Medical conditions or safety concerns Other Treatment Pt sit to stand with supervision. Gait to therapy gym with FWW, assist to manage O2 tank. No LOB noted. Seated rest break when he reached therapy gym. Pt completed arm bike x10 minutes to increase overall strength and activity tolerance needed for functional task completion. Pt able to complete task at 25 steve resistance with steady pace. Pt did not take rest break during activity, but required rest break after completion. Pt returned to room with needs met and family present after session. OT Short Term Goals Short Term Goals Time Frame: Mar 20, 2017 Bathing(FIM): 5 Toilet/Commode Transfer(FIM): 5 Shower Transfer(FIM): 5 Additional Short Term Goals: 2-Verbalize Understanding, 3-ImproveStrength/Jose Guadalupe 1=Demonstrate adherence to instructed precautions during ADL tasks. 2=Patient will verbalize/demonstrate understanding of assistive devices/ modifications for ADL. 3=Patient will improve strength/tolerance for activity to enable patient to perform ADL's. OT Intermediate Goals Rabbit Breeder Goals Time Frame: Apr 03, 2017 Eating (FIM): 6 Eating (QC): 6 Groomin Oral Hygiene (QC): 6 Bathing(FIM): 6 Shower/Bathe Self (QC): 6 Upper Body Dressing(FIM): 6 Upper Body Dressing (QC): 6 Lower Body Dressing(FIM): 6 Lower Body Dressing (QC): 6 On/Off Footwear (QC): 6 Toileting(FIM): 6 Toileting Hygiene (QC): 6 Toilet/Commode Transfer(FIM): 6 Toilet/Commode Transfer (QC): 6 Shower Transfer(FIM): 6 Additional Goals: 2-Verbalize Understanding, 3-ImproveStrength/Jose Guadalupe 1=Demonstrate adherence to instructed precautions during ADL tasks. 2=Patient will verbalize/demonstrate understanding of assistive devices/ modifications for ADL. 3=Patient will improve strength/tolerance for activity to enable patient to perform ADL's. OT Education/Plan Problem List/Assessment Pt would benefit from skilled OT to increase his independence in basic self care to allow him to safely return home with and to decrease caregiver burden Discharge Recommendations Plan/Recommendations: Continue POC Treatment Plan/Plan of Care Patient would benefit from OT for education, treatment and training to promote independence in ADL's, mobility, safety and/or upper extremity function for ADL' s. Plan of Care: ADL Retraining, Functional Mobility, Group Exercise/Act as Ind ( education, exercise, activity tolerance, functional activities, socialization), UE Funct Exercise/Act, UE Neuromus Re-Ed/Coord Treatment Duration: Apr 03, 2017 Frequency: At least 5-7 days/Wk (IRF) (15 hours over 7 days) Estimated Hrs Per Day: 1.5 hours per day Agreement: Yes Rehab Potential: Good Time/GCodes Start Time: 13:45 Stop Time: 14:15 Total Time Billed (hr/min): 30 Billed Treatment Time 1 visit, EXx2(30minutes) MEG BALDERAS OT Mar 18, 2017 14:21
--- NOTE | 2017-03-18 15:39 | Physical Therapy Daily Note ---
PT Daily Note-Current Subjective Pt sitting in recliner upon arrival. Pt agrees to PT. Pain Numeric Pain Scale: 4 Location: Dorsal Location Body Site: Back Pain Description: Stabbing, Sharp Mental Status Patient Orientation: Person, Place, Situation Attachments: Oxygen (3-5L) Transfers Functional [place] Measure 0=Not Assessed/NA 4=Minimal Assistance 1=Total Assistance 5=Supervision or Setup 2=Maximal Assistance 6=Modified [place] 3=Moderate Assistance 7=Complete IndependenceIRFPAI Quality Coding Scale 6 Independent with activity with or without an assistive device 5 Patient requires set up or clean up by helper. Patient completes activity by themselves 4 Supervision or touching assist (CGA). [place] provide cues , steadying assist 3 The helper provides less than half the effort to complete the activity 2 The helper provides more than half the effort to complete the activity 1 Dependent. The helper does all the effort to complete an activity 7 Patient refused to complete or attempt activity 9 The patient did not perform the activity before the current illness or injury 88 Not attempted due to Medical conditions or safety concerns Scootin Sit to/from Stand: 5 Sit to Stand (QC): 5 Weight Bearing Weight Bearing Restriction: Full Weight Bearing Location Restriction: LE Bilateral Gait Training Does the Patient Walk?: Yes Distance (FIM): 3=150 ft Distance: 350' Walk 10 feet (QC): 5 Walk 50 ft with 2 Turns(QC): 5 Walk 150 ft (QC): 5 Gait Level of Assist: 5 Gait Persons Needed: 1 Gait Assistive Device: FWW Pt walking with normalized gait pattern but needs occasional VC for FWW placement and staying close enough to FWW. Wheelchair Training Does the Pt Use a Wheelchair?: No Exercises Standing: Heel/toe raises, Mini squats Standing Reps: 15 NuStep Minutes: 12 NuStep Workload: 4 Treatments Pt transferred from recliner to standing using FWW at SBA. Pt ambulates using FWW at A. Pt uses NuStep for 12m at Workload 4 then completes Standing Ex at //bars. Pt returns to room to rest in recliner at end of tx with all needs met. Assessment Current Status: Good Progress Pt's activity tolerance has improved. PT Short Term Goals Short Term Goals Time Frame: Mar 18, 2017 Gait (FIM): 5 Gait Distance Comment: 200' Gait Level of Assist: 5 Gait Assistive Device: FWW PT Reinforcing Steel Worker Wire Mesh Goals Detention Goals PT Detention Goals Time Frame: Apr 01, 2017 Transfers (B,C,W/C) (FIM): 6 Sit to Lying (QC): 6 Lying-Sitting on Side/Bed(QC): 6 Sit to Stand (QC): 6 Rollin Roll Left to Right (QC): 6 Chair/Hua-rg-Xhdbk Xfer(QC): 6 Car Transfer (QC): 5 Gait (FIM): 6 Distance: 300' Walk 10 feet (QC): 6 Walk 10ft-Uneven Surface(QC): 6 Walk 50ft with 2 Turns (QC): 6 Walk 150 ft (QC): 6 Gait Assistive Device: FWW Stairs (FIM): 5 # of Steps: 12 1 Step (curb) (QC): 4 4 Steps (QC): 4 12 Steps (QC): 4 Stairs Level Of Assist: 5 PT Plan Problem List Problem List: Activity Tolerance, Functional Strength, Safety, Balance, Gait Treatment/Plan Treatment Plan: Continue Plan of Care Treatment Plan: Bed Mobility, Education, Functional Activity Jose Guadalupe, Functional Strength, Group Therapy, Gait, Safety, Therapeutic Exercise, Transfers Treatment Duration: Apr 01, 2017 Frequency: At least 5-7 days/Wk (IRF) Estimated Hrs Per Day: 1.5 hours per day Patient and/or Family Agrees t: Yes Safety Risks/Education Patient Education: Gait Training, Transfer Techniques, Reviewed Precautions, Correct Positioning, Safety Issues Teaching Recipient: Patient Teaching Methods: Discussion Response to Teaching: Verbalize Understanding Time/GCodes Time In: 1300 Time Out: 1330 Total Billed Treatment Time: 30 Total Billed Treatment visit, EX (20m) & GT (10m) CHINYERE STAUFFER DIRECTOR OF REGULATORY AFFAIRS Mar 18, 2017 15:39
[2017-03-18] MEDS: warFARin 5 MG (COUMADIN) TAB PO SCH (17:33)
[2017-03-18 17:54] VITALS: BP 127/69
[2017-03-18] MEDS: QUEtiapine 25 MG (SEROquel) TAB IMMEDIATE RELEASE PO SCH (20:40)
[2017-03-18] MEDS: POLYETHYLENE GLYCOL 17 GM (MIRALAX) PACK PO SCH (20:40)
--- OUTSIDE RECORDS SUMMARY | 2017-03-18 22:08 | XMS REPORT | Clinical Summary ---
Author Author [facility] Organization [facility] Address Unknown Phone Unavailable Care Team Providers Care Tube Sizer Operator Name Role Phone PCP Unavailable Source Comments Some departments are not documenting in the electronic medical record. If you do not see the information that you expected, contact Release of Information in the Health Information Management department at [phone] for further assistance in locating additional records.[facility] Allergies Not on File Current Medications Not on file Active Problems Not on file Social History Tobacco Use Types Packs/Day Years Used Date Never Assessed Sex Assigned at Date Recorded Not on file Last Filed Vital Signs Not on file Plan of Treatment Health Maintenance Due Date Last Done Comments PHYSICAL (COMPREHENSIVE) 01/09/1935 EXAM PERTUSSIS VACCINE 01/09/1939 TETANUS VACCINE 01/09/1945 SHINGLES VACCINE 1988 PREVNAR/PNEUMOVAX (#1) 01/09/1993 INFLUENZA VACCINE 04/24/2017 Results Not on filefrom Last 3 Months
[2017-03-19 05:47] LABS: INR 1.7 (0.8-1.4); PROTHROMBIN TIME PATIENT 19.7 SEC (12.2-14.7)
[2017-03-19] MEDS: MULTIVIT W/MINERALS TAB (THERAGRAN M) PO SCH (06:07)
[2017-03-19] MEDS: PANTOPRAZOLE 20 MG TABLET (PROTONIX) PO SCH (06:07)
[2017-03-19] MEDS: OMEGA 3 (FISH OIL) 1000 MG CAP PO SCH ×2 (06:07→17:06)
[2017-03-19] MEDS: KCL 10 MEQ TAB (MICRO K) PO SCH (06:08)
[2017-03-19 06:10] VITALS: BP 127/78
[2017-03-19 08:10] VITALS: BP 122/59
[2017-03-19] MEDS: MELOXICAM 7.5 MG (MOBIC) TABLET PO SCH (08:11)
[2017-03-19] MEDS: ASPIRIN E.C. 81 MG (ECOTRIN) TAB PO SCH (08:12)
[2017-03-19] MEDS: DIGOXIN 0.125 MG (LANOXIN) TAB PO SCH (08:12)
[2017-03-19] MEDS: DOCUSATE SODIUM 100 MG (COLACE) CAP PO SCH ×2 (08:12→20:25)
[2017-03-19] MEDS: HYDROcodone/APAP 5 MG/325 MG (LORTAB) TAB PO PRN ×4 (08:12→21:58)
--- NOTE | 2017-03-19 08:37 | Progress Note (SOAP) ---
Subjective Time Seen by Provider: 08:35 Subjective/Events-last exam compression fracture. COPD. INR 1.7 better. Patient states he slept last night Objective Exam Vital Signs Date Time Temp Pulse Resp B/P (MAP) Pulse Ox O2 Delivery O2 Flow Rate FiO2 03/19/17 08:10 87 122/59 03/19/17 07:51 Nasal Cannula 3.00 03/19/17 06:10 97.8 72 20 127/78 100 NIV CPAP 4.00 03/18/17 21:00 Nasal Cannula 3.00 03/18/17 17:54 97.7 110 24 127/69 94 Nasal Cannula 4.00 03/18/17 15:35 Nasal Cannula 3.00 I & O 03/19/17 07:00 Intake Total 1640 ml Balance 1640 ml Capillary Refill : General Appearance: No Apparent Distress, WD/WN Results Lab Laboratory Tests 03/19/17 05:08: Prothrombin Time 19.7H, INR Comment 1.7H Assessment/Plan Assessment/Plan Assess & Plan/Chief Complaint compression fracture. Atrial fibrillation. COPD using oxygen L1 compression fracture .. . 03/13/17. L1 compression fracture. Atrial fibrillation. COPD. Patient on oxygen.. . 03/16/17. Compression fracture. atrial fibrillation. COPD Patient does not feel he is of fall candidate. Patient put on Coumadin. . 03/17/17. Compression fracture. Atrial fib.. COPD. Patient having some pain. . . Compression fracture. A. fib. COPD. Patient slept last night. Patient having more endurance. Patient happy today . Compression fracture. A. fib. COPD. 03/19/17. Patient slept last night. Patient feels he is improving Clinical Quality Measures DVT/VTE Risk/Contraindication: Risk Factor Score Per Nursin RFS Level Per Nursing on Admit: 4+=Very High MIKO KELLY DO Mar 19, 2017 08:37
--- NOTE | 2017-03-19 08:56 | PM & R (SOAP) Progress Note ---
Subjective Time Seen by Provider: 08:20 Subjective/Events-last exam Patient was seen in his room this AM.Patient SBA for transfers INR getting closer to therapeutic range Objective Exam Last Set of Vital Signs Vital Signs Date Time Temp Pulse Resp B/P (MAP) Pulse Ox O2 Delivery O2 Flow Rate FiO2 03/19/17 08:10 87 122/59 03/19/17 07:51 Nasal Cannula 3.00 03/19/17 06:10 97.8 20 100 Capillary Refill : I&O Intake and Output 03/19/17 00:00 Intake Total 1690 ml Balance 1690 ml Intake Oral 1690 ml # Voids 8 # Bowel Movements 3 General: Alert, Oriented X3, Cooperative, No Acute Distress HEENT: Atraumatic, PERRLA, EOMI, Mucous Memb Moist/[place], Other (02 by N/C in place) Neck: Supple, No JVD Lungs: Clear to Auscultation Heart: Regular Rate Abdomen: Normal Bowel Sounds, Soft, No Tenderness Extremities: No Edema Neuro: Sensation Intact, Other (strength 4+/5 except hip flexion 3+/5 Left ankle fused) Results Lab Laboratory Tests 03/16/17 09:00: Prothrombin Time 14.5, INR Comment 1.2 03/17/17 06:52: Prothrombin Time 14.5, INR Comment 1.2, White Blood Count 8.6, Red Blood Count 4.70, Hemoglobin 14.3, Hematocrit 43, Mean Corpuscular Volume 91, Mean Corpuscular Hemoglobin 30, Mean Corpuscular Hemoglobin Concent 34, Red Cell Distribution Width 17.0H, Platelet Count 319, Mean Platelet Volume 10.7H, Neutrophils (%) (Auto) 76H, Lymphocytes (%) (Auto) 12, Monocytes (%) (Auto) 9, Eosinophils (%) (Auto) 2, Basophils (%) (Auto) 1, Neutrophils # (Auto) 6.5, Lymphocytes # (Auto) 1.0, Monocytes # (Auto) 0.8, Eosinophils # (Auto) 0.2, Basophils # (Auto) 0.0 03/18/17 07:15: Prothrombin Time 16.1H, INR Comment 1.3 03/19/17 05:08: Prothrombin Time 19.7H, INR Comment 1.7H Assessment/Plan Assessment 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 Black OS-improving 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 Chronic steroid usage-on taper on this med for dermatologic condition as per patients from Physical Optics Teacher Janell GERARD 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
[2017-03-19] MEDS: ATENOLOL 50 MG (TENORMIN) TAB PO SCH (10:01)
[2017-03-19] MEDS: FUROSEMIDE 40 MG (LASIX) TAB PO SCH (10:01)
--- NOTE | 2017-03-19 10:31 | Physical Therapy Daily Note ---
PT Daily Note-Current Subjective Pt sitting in recliner upon arrival. Pt reports not sleeping as well last night. Pt agrees to PT. Pain Numeric Pain Scale: 7 Location: Lower, Dorsal Location Body Site: Back Pain Description: Sharp Comment: Pt reports pain in Low back as well as R hip Mental Status Patient Orientation: Person, Place, Situation Attachments: Oxygen (3-5L) Transfers Functional [place] Measure 0=Not Assessed/NA 4=Minimal Assistance 1=Total Assistance 5=Supervision or Setup 2=Maximal Assistance 6=Modified [place] 3=Moderate Assistance 7=Complete IndependenceIRFPAI Quality Coding Scale 6 Independent with activity with or without an assistive device 5 Patient requires set up or clean up by helper. Patient completes activity by themselves 4 Supervision or touching assist (CGA). [place] provide cues , steadying assist 3 The helper provides less than half the effort to complete the activity 2 The helper provides more than half the effort to complete the activity 1 Dependent. The helper does all the effort to complete an activity 7 Patient refused to complete or attempt activity 9 The patient did not perform the activity before the current illness or injury 88 Not attempted due to Medical conditions or safety concerns Scootin Sit to/from Stand: 5 Sit to Stand (QC): 5 Weight Bearing Weight Bearing Restriction: Full Weight Bearing Location Restriction: LE Bilateral Gait Training Does the Patient Walk?: Yes Distance (FIM): 3=150 ft Distance: 350' Walk 10 feet (QC): 5 Walk 50 ft with 2 Turns(QC): 5 Walk 150 ft (QC): 5 Gait Level of Assist: 5 Gait Persons Needed: 1 Gait Assistive Device: FWW Pt walks with normalized gait, steady with no LOB. Pt reports pain but didn't affect ambulation. Wheelchair Training Does the Pt Use a Wheelchair?: No Exercises Standing: Hip Abduction, Heel/toe raises, Mini squats Standing Reps: 15 NuStep Minutes: 15 NuStep Workload: 4 Treatments Pt transferred from recliner to standing using FWW at [facility]. Pt used restroom before leaving room for tx. Pt ambulated using FWW at [facility]. Pt used NuStep for 15m at Workload 4 then completed Standing Ex at //bars. Pt ambulated back to room to rest in recliner at end of tx with all needs met. OT to arrive shortly. Assessment Current Status: Fair Progress Pt reports more pain today than yesterday as well as didn't sleep as well last night. PT Short Term Goals Short Term Goals Time Frame: Mar 18, 2017 Gait (FIM): 5 Gait Distance Comment: 200' Gait Level of Assist: 5 Gait Assistive Device: FWW PT Library Media Specialist Goals [place] Goals PT Library Media Specialist Goals Time Frame: Apr 01, 2017 Transfers (B,C,W/C) (FIM): 6 Sit to Lying (QC): 6 Lying-Sitting on Side/Bed(QC): 6 Sit to Stand (QC): 6 Rollin Roll Left to Right (QC): 6 Chair/Qqe-ht-Nratv Xfer(QC): 6 Car Transfer (QC): 5 Gait (FIM): 6 Distance: 300' Walk 10 feet (QC): 6 Walk 10ft-Uneven Surface(QC): 6 Walk 50ft with 2 Turns (QC): 6 Walk 150 ft (QC): 6 Gait Assistive Device: FWW Stairs (FIM): 5 # of Steps: 12 1 Step (curb) (QC): 4 4 Steps (QC): 4 12 Steps (QC): 4 Stairs Level Of Assist: 5 PT Plan Problem List Problem List: Activity Tolerance, Functional Strength, Gait Treatment/Plan Treatment Plan: Continue Plan of Care Treatment Plan: Bed Mobility, Education, Functional Activity Jose Guadalupe, Functional Strength, Group Therapy, Gait, Safety, Therapeutic Exercise, Transfers Treatment Duration: Apr 01, 2017 Frequency: At least 5-7 days/Wk (IRF) Estimated Hrs Per Day: 1.5 hours per day Patient and/or Family Agrees t: Yes Safety Risks/Education Patient Education: Gait Training, Transfer Techniques, Correct Positioning, Safety Issues Teaching Recipient: Patient Teaching Methods: Discussion Response to Teaching: Verbalize Understanding Time/GCodes Time In: 800 Time Out: 900 Total Billed Treatment Time: 60 Total Billed Treatment visit, GT (15m), FA (15m) & EX x2 (30m) CHINYERE STAUFFER PTA Mar 19, 2017 10:31
--- NOTE | 2017-03-19 11:42 | Occupational Ther Daily Note ---
OT Current Status-Daily Note Subjective Pt. reports no pain. However, states that he did not sleep well, and overall just doesn't "feel good." Appearance Pt. agreed to shower. Agreed that hot water on his back might feel good. Mental Status/Objective Patient Orientation: Person, Place Functional [place] Measure 0=Not Assessed/NA 4=Minimal Assistance 1=Total Assistance 5=Supervision or Setup 2=Maximal Assistance 6=Modified [place] 3=Moderate Assistance 7=Complete [place] Attachments: Oxygen ADL-Treatment Functional [place] Measure 0=Not Assessed/NA 4=Minimal Assistance 1=Total Assistance 5=Supervision or Setup 2=Maximal Assistance 6=Modified [place] 3=Moderate Assistance 7=Complete IndependenceIRFPAI Quality Coding Scale 6 Independent with activity with or without an assistive device 5 Patient requires set up or clean up by helper. Patient completes activity by themselves 4 Supervision or touching assist (CGA). [place] provide cues , steadying assist 3 The helper provides less than half the effort to complete the activity 2 The helper provides more than half the effort to complete the activity 1 Dependent. The helper does all the effort to complete an activity 7 Patient refused to complete or attempt activity 9 The patient did not perform the activity before the current illness or injury 88 Not attempted due to Medical conditions or safety concerns Bathing (FIM): 4 (Pt. requires CGA in stance to wash and dry betty areas. Pt. is able to wash bilateral feet with sponge.) Shower/Bathe Self (QC): 4 Upper Body (FIM): 5 Upper Body Dressing (QC): 4 Lower Body Dressing (FIM): 3 (Pt. able to don underwear and shorts over feet. Required min assist in stance to pull them over hips in back. Pt. able to don socks using sock aide, with min assistance and increased time needed. Pt. had difficulty donning shoes. Agreed to let OT put in elastic laces. Attempted to put shoes on with elastic laces and shoe horn. Pt. had great difficulty with this. OT loosened strings. This still was difficult. Pt. states that he wants regular laces back in shoes. OT put them back. Unable to tie his own shoes.) Lower Body Dressing (QC): 3 On/Off Footwear (QC): 3 Transfers (B, C, W/C) (FIM): 4 (CGA sit-stand and stand to sit.) Shower Transfer(FIM): 4 Pt. on 3 L 02 in room. In shower, became short of air. OT put on 4 L per pt. request. Took sats at end of treatment. Pt. at 98%. Pt. states that at home, he wears oxygen 24 hours per day. States that it varies from 3-5 L. Pt. states that he is comfortable at 4 L. All needs met in room. Pt. encouraged after stating that he is discouraged. Reports that he wants to be independent before he discharges home. Education OT Patient Education: Energy conservation, Modified ADL techniques, Progress toward Goal/Update tx plan, Purpose of tx/functional activities, Reviewed precautions, Rehab process, Transfer techniques, Use of adapted equipment Teaching Recipient: Patient Teaching Methods: Demonstration, Discussion Response to Teaching: Verbalize Understanding, Return Demonstration OT Short Term Goals Short Term Goals Time Frame: Mar 20, 2017 Bathing(FIM): 5 Toilet/Commode Transfer(FIM): 5 Shower Transfer(FIM): 5 Additional Short Term Goals: 2-Verbalize Understanding, 3-ImproveStrength/Jose Guadalupe 1=Demonstrate adherence to instructed precautions during ADL tasks. 2=Patient will verbalize/demonstrate understanding of assistive devices/ modifications for ADL. 3=Patient will improve strength/tolerance for activity to enable patient to perform ADL's. OT Slab Lifting Supervisor Goals Custodial Goals Time Frame: Apr 03, 2017 Eating (FIM): 6 Eating (QC): 6 Groomin Oral Hygiene (QC): 6 Bathing(FIM): 6 Shower/Bathe Self (QC): 6 Upper Body Dressing(FIM): 6 Upper Body Dressing (QC): 6 Lower Body Dressing(FIM): 6 Lower Body Dressing (QC): 6 On/Off Footwear (QC): 6 Toileting(FIM): 6 Toileting Hygiene (QC): 6 Toilet/Commode Transfer(FIM): 6 Toilet/Commode Transfer (QC): 6 Shower Transfer(FIM): 6 Additional Goals: 2-Verbalize Understanding, 3-ImproveStrength/Jose Guadalupe 1=Demonstrate adherence to instructed precautions during ADL tasks. 2=Patient will verbalize/demonstrate understanding of assistive devices/ modifications for ADL. 3=Patient will improve strength/tolerance for activity to enable patient to perform ADL's. OT Education/Plan Problem List/Assessment Assessment: Decreased Activ Tolerance, Dependent Transfers, Impaired I ADL's, Impaired Self-Care Skills Pt would benefit from skilled OT to increase his independence in basic self care to allow him to safely return home with and to decrease caregiver burden Discharge Recommendations Plan/Recommendations: Continue POC Therapy D/C Recommendations: Home w/ Family Support, Occupational Therapy Home Care Equpiment Recommendations-D/C: Bath Chair, Hip Kit Treatment Plan/Plan of Care Treatment,Training & Education: Yes Patient would benefit from OT for education, treatment and training to promote independence in ADL's, mobility, safety and/or upper extremity function for ADL' s. Plan of Care: ADL Retraining, Functional Mobility, Group Exercise/Act as Ind ( education, exercise, activity tolerance, functional activities, socialization), UE Funct Exercise/Act, UE Neuromus Re-Ed/Coord Treatment Duration: Apr 03, 2017 Frequency: At least 5-7 days/Wk (IRF) (15 hours over 7 days) Estimated Hrs Per Day: 1.5 hours per day Agreement: Yes Rehab Potential: Good Time/GCodes Start Time: 09:00 Stop Time: 10:30 Total Time Billed (hr/min): 90 Billed Treatment Time 1, ADL x 6 KELL HERNANDEZ OT Mar 19, 2017 11:42
--- NOTE | 2017-03-19 15:57 | Physical Therapy Daily Note ---
PT Daily Note-Current Subjective Pt sitting in recliner upon arrival. Pt still reports pain on R low back & hip. Pt concerned that he will be discharged before he is ready to go home. Pt agrees to PT. Pain Numeric Pain Scale: 8 Location: Right Location Body Site: Hip Pain Description: Sharp Mental Status Patient Orientation: Person, Place, Time, Situation Attachments: Oxygen (3-5L) Transfers Functional [place] Measure 0=Not Assessed/NA 4=Minimal Assistance 1=Total Assistance 5=Supervision or Setup 2=Maximal Assistance 6=Modified [place] 3=Moderate Assistance 7=Complete IndependenceIRFPAI Quality Coding Scale 6 Independent with activity with or without an assistive device 5 Patient requires set up or clean up by helper. Patient completes activity by themselves 4 Supervision or touching assist (CGA). [place] provide cues , steadying assist 3 The helper provides less than half the effort to complete the activity 2 The helper provides more than half the effort to complete the activity 1 Dependent. The helper does all the effort to complete an activity 7 Patient refused to complete or attempt activity 9 The patient did not perform the activity before the current illness or injury 88 Not attempted due to Medical conditions or safety concerns Scootin Rollin Roll Left to Right (QC): 4 Supine to/from Sit: 4 Sit to/from Stand: 5 Sit to Lying (QC): 4 Sit to Stand (QC): 5 Weight Bearing Weight Bearing Restriction: Full Weight Bearing Location Restriction: LE Bilateral Gait Training Does the Patient Walk?: Yes Distance (FIM): 3=150 ft Distance: 150' Walk 10 feet (QC): 5 Walk 50 ft with 2 Turns(QC): 5 Walk 150 ft (QC): 5 Gait Level of Assist: 5 Gait Persons Needed: 1 Gait Assistive Device: FWW Pt reports pain this afternoon. Wheelchair Training Does the Pt Use a Wheelchair?: No Exercises Supine Ex: Ankle pumps, Hip abd/add Supine Reps: 10 Treatments Pt transferred from recliner to standing using FWW at [facility]. Pt ambulated using FWW at [facility]. Pt attempted L sidelying EX although reported too much pain and had to discontinue Ex. Pt returned to room to rest in recliner. Sp arrives and pt, sp & PT discuss possible upcoming discharge and pt's frustrations and concerns with going home. Pt is resting in recliner at end of tx with all needs met. Assessment Current Status: Fair Progress Pt reports inability to R sidelying. Pt is concerned with lack of strength for bed mobility. PT Short Term Goals Short Term Goals Time Frame: Mar 18, 2017 Gait (FIM): 5 Gait Distance Comment: 200' Gait Level of Assist: 5 Gait Assistive Device: FWW PT Racing Mechanic Goals Correction Goals PT Correction Goals Time Frame: Apr 01, 2017 Transfers (B,C,W/C) (FIM): 6 Sit to Lying (QC): 6 Lying-Sitting on Side/Bed(QC): 6 Sit to Stand (QC): 6 Rollin Roll Left to Right (QC): 6 Chair/Imh-az-Epldq Xfer(QC): 6 Car Transfer (QC): 5 Gait (FIM): 6 Distance: 300' Walk 10 feet (QC): 6 Walk 10ft-Uneven Surface(QC): 6 Walk 50ft with 2 Turns (QC): 6 Walk 150 ft (QC): 6 Gait Assistive Device: FWW Stairs (FIM): 5 # of Steps: 12 1 Step (curb) (QC): 4 4 Steps (QC): 4 12 Steps (QC): 4 Stairs Level Of Assist: 5 PT Plan Problem List Problem List: Activity Tolerance, Functional Strength, Gait, Bed Mobility Treatment/Plan Treatment Plan: Continue Plan of Care Treatment Plan: Bed Mobility, Education, Functional Activity Jose Guadalupe, Functional Strength, Group Therapy, Gait, Safety, Therapeutic Exercise, Transfers Treatment Duration: Apr 01, 2017 Frequency: At least 5-7 days/Wk (IRF) Estimated Hrs Per Day: 1.5 hours per day Patient and/or Family Agrees t: Yes Safety Risks/Education Patient Education: Transfer Techniques, Correct Positioning, Safety Issues Teaching Recipient: Patient, Significant Other Teaching Methods: Discussion Response to Teaching: Verbalize Understanding Time/GCodes Time In: 1330 Time Out: 1400 Total Billed Treatment Time: 30 Total Billed Treatment visit, GT (10m), FA (20m) & EX (15m) CHINYERE STAUFFER PTA Mar 19, 2017 15:57
[2017-03-19] MEDS: warFARin 5 MG (COUMADIN) TAB PO SCH (17:06)
[2017-03-19] MEDS: ZINC OXIDE 16% OINT (BUTT PASTE) 113 GM TUBE TOP PRN (17:07)
[2017-03-19 18:59] VITALS: BP 127/84
[2017-03-19] MEDS: POLYETHYLENE GLYCOL 17 GM (MIRALAX) PACK PO SCH (20:25)
[2017-03-19] MEDS: QUEtiapine 25 MG (SEROquel) TAB IMMEDIATE RELEASE PO SCH (20:25)
[2017-03-20 04:29] VITALS: BP 133/69
[2017-03-20 05:33] LABS: INR 1.8 (0.8-1.4)
[2017-03-20] MEDS: MULTIVIT W/MINERALS TAB (THERAGRAN M) PO SCH (06:15)
[2017-03-20] MEDS: KCL 10 MEQ TAB (MICRO K) PO SCH (06:15)
[2017-03-20] MEDS: PANTOPRAZOLE 20 MG TABLET (PROTONIX) PO SCH (06:15)
[2017-03-20] MEDS: predniSONE 10 MG TAB PO SCH (06:15)
[2017-03-20] MEDS: OMEGA 3 (FISH OIL) 1000 MG CAP PO SCH ×2 (06:16→17:27)
--- NOTE | 2017-03-20 08:35 | Progress Note (SOAP) ---
Subjective Time Seen by Provider: 08:32 Subjective/Events-last exam patient constipated.. Compression fracture. Atrial fibrillation. INR 1.8 Objective Exam Vital Signs Date Time Temp Pulse Resp B/P (MAP) Pulse Ox O2 Delivery O2 Flow Rate FiO2 03/20/17 04:29 97.5 73 16 133/69 100 03/19/17 21:00 Nasal Cannula 3.00 03/19/17 18:59 97.4 78 20 127/84 97 Room Air 4.00 03/19/17 09:28 Nasal Cannula 3.00 I & O 03/20/17 07:00 Intake Total 1610 ml Balance 1610 ml Capillary Refill : General Appearance: No Apparent Distress, WD/WN HEENT: Normal ENT Inspection Neck: Full Range of Motion, Normal Inspection Respiratory: Chest Non Tender, No Accessory Muscle Use, No Respiratory Distress , Decreased Breath Sounds, Other (On oxygen) Cardiovascular: Irregularly Irregular Gastrointestinal: soft Results Lab Laboratory Tests 03/20/17 05:04: Prothrombin Time 21.0H, INR Comment 1.8H Assessment/Plan Assessment/Plan Assess & Plan/Chief Complaint compression fracture. Atrial fibrillation. COPD using oxygen L1 compression fracture .. . 03/13/17. L1 compression fracture. Atrial fibrillation. COPD. Patient on oxygen.. . 03/16/17. Compression fracture. atrial fibrillation. COPD Patient does not feel he is of fall candidate. Patient put on Coumadin. . 03/17/17. Compression fracture. Atrial fib.. COPD. Patient having some pain. . . Compression fracture. A. fib. COPD. Patient slept last night. Patient having more endurance. Patient happy today . Compression fracture. A. fib. COPD. 03/19/17. Patient slept last night. Patient feels he is improving. . 03/20/17. Compression fracture. atrial fibrillation. New-onset constipation. COPD. Using oxygen. Clinical Quality Measures DVT/VTE Risk/Contraindication: Risk Factor Score Per Nursin RFS Level Per Nursing on Admit: 4+=Very High MIKO KELLY DO Mar 20, 2017 08:35
--- NOTE | 2017-03-20 08:41 | Physical Therapy Daily Note ---
PT Daily Note-Current Subjective Pt. found in in bathroom standing at sink, irritable and states" can you just leave me alone while I comb my hair" this HOSPITAL CHIEF EXECUTIVE OFFICER attempting to place gait belt on pt. him for safety, pt. SOB. Pt. very irritable and frustrated entire Rx, resisting suggestions for safety and function. Shared with pt. at end of Rx that all involved in his care want the same thing he wants : safe DC to home with good outcome and better functional mob Appearance appears SOB Mental Status Patient Orientation: Normal For Age Attachments: Oxygen (4L) Transfers Functional [place] Measure 0=Not Assessed/NA 4=Minimal Assistance 1=Total Assistance 5=Supervision or Setup 2=Maximal Assistance 6=Modified [place] 3=Moderate Assistance 7=Complete IndependenceIRFPAI Quality Coding Scale 6 Independent with activity with or without an assistive device 5 Patient requires set up or clean up by helper. Patient completes activity by themselves 4 Supervision or touching assist (CGA). [place] provide cues , steadying assist 3 The helper provides less than half the effort to complete the activity 2 The helper provides more than half the effort to complete the activity 1 Dependent. The helper does all the effort to complete an activity 7 Patient refused to complete or attempt activity 9 The patient did not perform the activity before the current illness or injury 88 Not attempted due to Medical conditions or safety concerns Transfers (B, C, W/C) (FIM): 4 Scootin Rollin Supine to/from Sit: 4 (neerds assist sup to sit) Sit to/from Stand: 5 discussed possible bed cane for home , used FWW sideways to replicate bed rail Gait Training Does the Patient Walk?: Yes Gait (FIM): 2 Distance (FIM): 9=623-73 ft (125x2) Gait Level of Assist: 4 Gait Persons Needed: 1 Gait Assistive Device: FWW SOB limits pts distance this Rx. O2 insitu at 4L min. practiced gait with extended O2 x 3 trips, pt. ignoring and becoming frustrated with instructions, wound himself up in tubing and tube around walker legs then stood repeatedly lifting walker up and down , bending over etc. This HOSPITAL CHIEF EXECUTIVE OFFICER attempting to explain the hazards with this situation but pt.very resistive to instruction Stair Training pt. declined stair training this Rx Exercises Seated Therapy Exercises: Ankle pumps, Sit to stand, Long arc quads, Hip flexion, Hip abd/add Seated Reps: 15 Treatments in bathroom at sink for face wash and hair comb, stood with SBA and attempted instruction for safety etc Assessment Current Status: Good Progress pt. displays extreme frustration and anger, not sure of the root but it does limit his learning and progress PT Short Term Goals Short Term Goals Time Frame: Mar 18, 2017 Gait (FIM): 5 Gait Distance Comment: 200' Gait Level of Assist: 5 Gait Assistive Device: FWW PT Magazine Publisher Goals Mcfp Goals PT Mcfp Goals Time Frame: Apr 01, 2017 Transfers (B,C,W/C) (FIM): 6 Sit to Lying (QC): 6 Lying-Sitting on Side/Bed(QC): 6 Sit to Stand (QC): 6 Rollin Roll Left to Right (QC): 6 Chair/Ttu-pu-Khfbi Xfer(QC): 6 Car Transfer (QC): 5 Gait (FIM): 6 Distance: 300' Walk 10 feet (QC): 6 Walk 10ft-Uneven Surface(QC): 6 Walk 50ft with 2 Turns (QC): 6 Walk 150 ft (QC): 6 Gait Assistive Device: FWW Stairs (FIM): 5 # of Steps: 12 1 Step (curb) (QC): 4 4 Steps (QC): 4 12 Steps (QC): 4 Stairs Level Of Assist: 5 PT Plan Treatment/Plan Treatment Plan: Continue Plan of Care Treatment Plan: Bed Mobility, Education, Functional Activity Jose Guadalupe, Functional Strength, Group Therapy, Gait, Safety, Therapeutic Exercise, Transfers Treatment Duration: Apr 01, 2017 Frequency: At least 5-7 days/Wk (IRF) Estimated Hrs Per Day: 1.5 hours per day Patient and/or Family Agrees t: Yes Safety Risks/Education Patient Education: Gait Training, Transfer Techniques, Correct Positioning, Disease Process, Safety Issues Teaching Recipient: Patient Teaching Methods: Demonstration, Discussion Response to Teaching: Verbalize Understanding, Return Demonstration, Reinforcement Needed Time/GCodes Time In: 800 Time Out: 845 Total Billed Treatment Time: 45 Total Billed Treatment 1,FA20,EX10,GT15m G Codes Necessary: BRIAN Munroe HOSPITAL CHIEF EXECUTIVE OFFICER Mar 20, 2017 08:41
[2017-03-20] MEDS: DIGOXIN 0.125 MG (LANOXIN) TAB PO SCH (08:46)
[2017-03-20] MEDS: ATENOLOL 50 MG (TENORMIN) TAB PO SCH (08:47)
[2017-03-20] MEDS: MILK OF MAGNESIA 400 MG/5 ML 30 ML UDC PO SCH ×2 (08:47→20:17)
[2017-03-20] MEDS: DOCUSATE SODIUM 100 MG (COLACE) CAP PO SCH ×2 (08:47→20:16)
[2017-03-20] MEDS: ASPIRIN E.C. 81 MG (ECOTRIN) TAB PO SCH (08:47)
[2017-03-20] MEDS: HYDROcodone/APAP 5 MG/325 MG (LORTAB) TAB PO PRN ×3 (08:47→20:15)
[2017-03-20] MEDS: MELOXICAM 7.5 MG (MOBIC) TABLET PO SCH (08:47)
[2017-03-20] MEDS: FUROSEMIDE 40 MG (LASIX) TAB PO SCH (08:47)
--- NOTE | 2017-03-20 12:06 | Occupational Ther Daily Note ---
OT Current Status-Daily Note Subjective Pt sitting in chair, agrees to treatment. Pt reports back pain, but does not rate. Mental Status/Objective Functional [place] Measure 0=Not Assessed/NA 4=Minimal Assistance 1=Total Assistance 5=Supervision or Setup 2=Maximal Assistance 6=Modified [place] 3=Moderate Assistance 7=Complete [place] Attachments: Oxygen (4L) ADL-Treatment Pt would like to shower this morning. Sit to stand from chair with supervision.Gait to restroom with FWW, assist to manage oxygen tubing. Pt doffed clothing with SBA. Uses dressing stick to doff socks, shorts, and underwear. Transfer to walk in shower with supervision. Pt completed seated shower using long handled sponge. Pt able to wash all areas with supervision. Don pullover shirt with set up. Pt able to don underwear and shorts over feet, but required minimal assistance to pull up in the back. Don bilateral socks with SBA using sock aid. Pt used long shoe horn to don bilateral shoes with minimal assistance. Increased time for bathing and dressing tasks. Stood at sink to comb hair with SBA. Pt fatigues quickly and is short of breath with activity, requires frequent rest breaks throughout treatment. Transfer to chair with supervision. Pt sitting in chair with needs met after session. Functional [place] Measure 0=Not Assessed/NA 4=Minimal Assistance 1=Total Assistance 5=Supervision or Setup 2=Maximal Assistance 6=Modified [place] 3=Moderate Assistance 7=Complete IndependenceIRFPAI Quality Coding Scale 6 Independent with activity with or without an assistive device 5 Patient requires set up or clean up by helper. Patient completes activity by themselves 4 Supervision or touching assist (CGA). [place] provide cues , steadying assist 3 The helper provides less than half the effort to complete the activity 2 The helper provides more than half the effort to complete the activity 1 Dependent. The helper does all the effort to complete an activity 7 Patient refused to complete or attempt activity 9 The patient did not perform the activity before the current illness or injury 88 Not attempted due to Medical conditions or safety concerns Grooming (FIM): 5 Bathing (FIM): 5 Shower/Bathe Self (QC): 4 Upper Body (FIM): 5 Upper Body Dressing (QC): 5 Lower Body Dressing (FIM): 4 Lower Body Dressing (QC): 3 Shower Transfer(FIM): 5 OT Short Term Goals Short Term Goals Time Frame: Mar 20, 2017 Bathing(FIM): 5 Toilet/Commode Transfer(FIM): 5 Shower Transfer(FIM): 5 Additional Short Term Goals: 2-Verbalize Understanding, 3-ImproveStrength/Jose Guadalupe 1=Demonstrate adherence to instructed precautions during ADL tasks. 2=Patient will verbalize/demonstrate understanding of assistive devices/ modifications for ADL. 3=Patient will improve strength/tolerance for activity to enable patient to perform ADL's. OT Halfway Goals Halfway Goals Time Frame: Apr 03, 2017 Eating (FIM): 6 Eating (QC): 6 Groomin Oral Hygiene (QC): 6 Bathing(FIM): 6 Shower/Bathe Self (QC): 6 Upper Body Dressing(FIM): 6 Upper Body Dressing (QC): 6 Lower Body Dressing(FIM): 6 Lower Body Dressing (QC): 6 On/Off Footwear (QC): 6 Toileting(FIM): 6 Toileting Hygiene (QC): 6 Toilet/Commode Transfer(FIM): 6 Toilet/Commode Transfer (QC): 6 Shower Transfer(FIM): 6 Additional Goals: 2-Verbalize Understanding, 3-ImproveStrength/Jose Guadalupe 1=Demonstrate adherence to instructed precautions during ADL tasks. 2=Patient will verbalize/demonstrate understanding of assistive devices/ modifications for ADL. 3=Patient will improve strength/tolerance for activity to enable patient to perform ADL's. OT Education/Plan Problem List/Assessment Pt would benefit from skilled OT to increase his independence in basic self care to allow him to safely return home with and to decrease caregiver burden Discharge Recommendations Plan/Recommendations: Continue POC Treatment Plan/Plan of Care Patient would benefit from OT for education, treatment and training to promote independence in ADL's, mobility, safety and/or upper extremity function for ADL' s. Plan of Care: ADL Retraining, Functional Mobility, Group Exercise/Act as Ind ( education, exercise, activity tolerance, functional activities, socialization), UE Funct Exercise/Act, UE Neuromus Re-Ed/Coord Treatment Duration: Apr 03, 2017 Frequency: At least 5-7 days/Wk (IRF) (15 hours over 7 days) Estimated Hrs Per Day: 1.5 hours per day Agreement: Yes Rehab Potential: Good Time/GCodes Start Time: 09:10 Stop Time: 10:10 Total Time Billed (hr/min): 60 Billed Treatment Time 1 visit, ADLx4(60minutes) MEG BALDERAS OT Mar 20, 2017 12:06
--- NOTE | 2017-03-20 14:53 | Therapy Group Daily Note ---
Therapy Daily Group Note Exercises Fine Motor Other/Notes Pt ambulated to OT/PT group using FWW. Group consisted of introductions (name, place living, first dollar earned), socialization, table top activities that promoted fine motor and cognitive skills and peer interaction. Pt contributed to group discussion and assisted other pt's in activity when needed. Pt demonstrated increased UE control with gross grasp and reaching to place item in designated area. Pt demonstrated good cognitive skills and interacted with each peer affectively and courteously. After therapy, pt ambulated to room with FWW. Pt requested to use toilet. SBA for all needs. After, pt sitting in recliner with call light/phone in reach. All needs met in room. Start Time: 13:00 Stop Time: 14:20 Total Billed Treatment Time: 80 Total Billed Treatment 1-GRP RAY CUI Mar 20, 2017 14:53
--- NOTE | 2017-03-20 15:54 | PM & R (SOAP) Progress Note ---
Subjective Time Seen by Provider: 15:20 Subjective/Events-last exam Patient was seen in his room this afternoon Patient Min assist for transfers Impulsive at times Objective Exam Last Set of Vital Signs Vital Signs Date Time Temp Pulse Resp B/P (MAP) Pulse Ox O2 Delivery O2 Flow Rate FiO2 03/20/17 09:20 Nasal Cannula 3.00 03/20/17 04:29 97.5 73 16 133/69 100 Capillary Refill : I&O Intake and Output 03/19/17 23:59 Intake Total 1760 ml Balance 1760 ml Intake Oral 1760 ml # Voids 9 # Bowel Movements 2 General: Alert, Oriented X3, Cooperative, No Acute Distress HEENT: Atraumatic, PERRLA, EOMI, Mucous Memb Moist/Yoe, Other (02 by N/C in place) Neck: Supple, No JVD Lungs: Clear to Auscultation Heart: Regular Rate Abdomen: Normal Bowel Sounds, Soft, No Tenderness Extremities: No Edema Neuro: Sensation Intact, Other (strength 4+/5 except hip flexion 3+/5 Left ankle fused) Results Lab Laboratory Tests 03/18/17 07:15: Prothrombin Time 16.1H, INR Comment 1.3 03/19/17 05:08: Prothrombin Time 19.7H, INR Comment 1.7H 03/20/17 05:04: Prothrombin Time 21.0H, INR Comment 1.8H Assessment/Plan Assessment 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 Black [facility]-improving 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 Chronic steroid usage-on taper on this med for dermatologic condition as per patients from Event Host Janell GERARD 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
[2017-03-20] MEDS: warFARin 5 MG (COUMADIN) TAB PO SCH (17:27)
[2017-03-20 18:19] VITALS: BP 117/60
[2017-03-20] MEDS: QUEtiapine 25 MG (SEROquel) TAB IMMEDIATE RELEASE PO SCH (20:15)
[2017-03-20] MEDS: POLYETHYLENE GLYCOL 17 GM (MIRALAX) PACK PO SCH (20:16)
[2017-03-20] MEDS ORDERED: POLYETHYLENE GLYCOL 17 GM (MIRALAX) PACK PO SCH (21:00)
[2017-03-21 05:37] LABS: INR 1.8 (0.8-1.4); PROTHROMBIN TIME PATIENT 20.8 SEC (12.2-14.7)
[2017-03-21] MEDS: HYDROcodone/APAP 5 MG/325 MG (LORTAB) TAB PO PRN ×4 (05:39→20:40)
[2017-03-21 05:42] VITALS: BP 141/78
[2017-03-21] MEDS: KCL 10 MEQ TAB (MICRO K) PO SCH (06:01)
[2017-03-21] MEDS: MULTIVIT W/MINERALS TAB (THERAGRAN M) PO SCH (06:01)
[2017-03-21] MEDS: PANTOPRAZOLE 20 MG TABLET (PROTONIX) PO SCH (06:01)
[2017-03-21] MEDS: OMEGA 3 (FISH OIL) 1000 MG CAP PO SCH ×2 (06:01→18:30)
[2017-03-21] MEDS: FUROSEMIDE 40 MG (LASIX) TAB PO SCH (08:18)
[2017-03-21] MEDS: ASPIRIN E.C. 81 MG (ECOTRIN) TAB PO SCH (08:18)
[2017-03-21] MEDS: DIGOXIN 0.125 MG (LANOXIN) TAB PO SCH (08:18)
[2017-03-21] MEDS: MELOXICAM 7.5 MG (MOBIC) TABLET PO SCH (08:18)
[2017-03-21] MEDS: ATENOLOL 50 MG (TENORMIN) TAB PO SCH (08:18)
[2017-03-21] MEDS: DOCUSATE SODIUM 100 MG (COLACE) CAP PO SCH ×3 (08:59→20:42)
[2017-03-21] MEDS: MILK OF MAGNESIA 400 MG/5 ML 30 ML UDC PO SCH ×2 (09:00→20:40)
--- NOTE | 2017-03-21 12:30 | Physical Therapy Daily Note ---
PT Daily Note-Current Subjective Pt agreeable. Pain rated 8/10 in back. Mental Status Patient Orientation: Person, Place, Situation Transfers Functional [place] Measure 0=Not Assessed/NA 4=Minimal Assistance 1=Total Assistance 5=Supervision or Setup 2=Maximal Assistance 6=Modified [place] 3=Moderate Assistance 7=Complete IndependenceIRFPAI Quality Coding Scale 6 Independent with activity with or without an assistive device 5 Patient requires set up or clean up by helper. Patient completes activity by themselves 4 Supervision or touching assist (CGA). [place] provide cues , steadying assist 3 The helper provides less than half the effort to complete the activity 2 The helper provides more than half the effort to complete the activity 1 Dependent. The helper does all the effort to complete an activity 7 Patient refused to complete or attempt activity 9 The patient did not perform the activity before the current illness or injury 88 Not attempted due to Medical conditions or safety concerns Transfers mod (I) Gait Training Gait Assistive Device: FWW Pt amb with FWW and O2 at 4L/min x 250ft. Pt amb with steady speed, slightly SOB post gait training. Exercises Supine Ex: Ankle pumps Seated Therapy Exercises: Ankle pumps, Long arc quads, Hip abd/add Seated Reps: 20 Assessment Current Status: Good Progress Pt required min A to sydni shoes. Pt moreno above well. Pt back to recliner with call light and O2 insitu. All needs met. PT Short Term Goals Short Term Goals Time Frame: Mar 18, 2017 Gait (FIM): 5 Gait Distance Comment: 200' Gait Level of Assist: 5 Gait Assistive Device: FWW PT [facility] Goals Flower Shop Manager Goals PT [facility] Goals Time Frame: Apr 01, 2017 Transfers (B,C,W/C) (FIM): 6 Sit to Lying (QC): 6 Lying-Sitting on Side/Bed(QC): 6 Sit to Stand (QC): 6 Rollin Roll Left to Right (QC): 6 Chair/Xpq-oa-Xkaqa Xfer(QC): 6 Car Transfer (QC): 5 Gait (FIM): 6 Distance: 300' Walk 10 feet (QC): 6 Walk 10ft-Uneven Surface(QC): 6 Walk 50ft with 2 Turns (QC): 6 Walk 150 ft (QC): 6 Gait Assistive Device: FWW Stairs (FIM): 5 # of Steps: 12 1 Step (curb) (QC): 4 4 Steps (QC): 4 12 Steps (QC): 4 Stairs Level Of Assist: 5 PT Plan Treatment/Plan Treatment Plan: Continue Plan of Care Treatment Plan: Bed Mobility, Education, Functional Activity Jose Guadalupe, Functional Strength, Group Therapy, Gait, Safety, Therapeutic Exercise, Transfers Treatment Duration: Apr 01, 2017 Frequency: At least 5-7 days/Wk (IRF) Estimated Hrs Per Day: 1.5 hours per day Patient and/or Family Agrees t: Yes Time/GCodes Time In: 945 Time Out: 1005 Total Billed Treatment Time: 20 Total Billed Treatment 1, gait x 15 min, ther ex 5 min GARRETT ALDANA CPTA Mar 21, 2017 12:30
[2017-03-21 18:00] VITALS: BP 108/69
[2017-03-21] MEDS: warFARin 5 MG (COUMADIN) TAB PO SCH (18:31)
[2017-03-21] MEDS: POLYETHYLENE GLYCOL 17 GM (MIRALAX) PACK PO SCH (20:39)
[2017-03-21] MEDS: QUEtiapine 25 MG (SEROquel) TAB IMMEDIATE RELEASE PO SCH (20:39)
[2017-03-22] MEDS: HYDROcodone/APAP 5 MG/325 MG (LORTAB) TAB PO PRN ×4 (01:48→22:00)
[2017-03-22 05:40] VITALS: BP 138/75
[2017-03-22] MEDS: MULTIVIT W/MINERALS TAB (THERAGRAN M) PO SCH (06:16)
[2017-03-22] MEDS: PANTOPRAZOLE 20 MG TABLET (PROTONIX) PO SCH (06:16)
[2017-03-22] MEDS: OMEGA 3 (FISH OIL) 1000 MG CAP PO SCH ×2 (06:16→17:03)
[2017-03-22] MEDS: KCL 10 MEQ TAB (MICRO K) PO SCH (06:16)
[2017-03-22] MEDS: predniSONE 10 MG TAB PO SCH (06:16)
[2017-03-22 06:29] LABS: INR 1.9 (0.8-1.4); PROTHROMBIN TIME PATIENT 21.5 SEC (12.2-14.7)
[2017-03-22] MEDS: MILK OF MAGNESIA 400 MG/5 ML 30 ML UDC PO SCH ×2 (07:34→20:30)
[2017-03-22] MEDS: ASPIRIN E.C. 81 MG (ECOTRIN) TAB PO SCH (07:55)
[2017-03-22] MEDS: FUROSEMIDE 40 MG (LASIX) TAB PO SCH (07:55)
[2017-03-22] MEDS: MELOXICAM 7.5 MG (MOBIC) TABLET PO SCH (07:55)
[2017-03-22] MEDS: ATENOLOL 50 MG (TENORMIN) TAB PO SCH (07:55)
[2017-03-22] MEDS: DOCUSATE SODIUM 100 MG (COLACE) CAP PO SCH ×2 (07:56→20:30)
[2017-03-22] MEDS: DIGOXIN 0.125 MG (LANOXIN) TAB PO SCH (07:56)
[2017-03-22 17:01] VITALS: BP 130/68
[2017-03-22] MEDS: warFARin 5 MG (COUMADIN) TAB PO SCH (17:03)
[2017-03-22] MEDS: POLYETHYLENE GLYCOL 17 GM (MIRALAX) PACK PO SCH (20:30)
[2017-03-22] MEDS: QUEtiapine 25 MG (SEROquel) TAB IMMEDIATE RELEASE PO SCH (20:30)
[2017-03-23] MEDS: HYDROcodone/APAP 5 MG/325 MG (LORTAB) TAB PO PRN ×4 (01:31→22:28)
[2017-03-23 05:17] LABS: INR 2.2 (0.8-1.4); PROTHROMBIN TIME PATIENT 24.2 SEC (12.2-14.7)
[2017-03-23 05:40] VITALS: BP 132/78
[2017-03-23] MEDS: PANTOPRAZOLE 20 MG TABLET (PROTONIX) PO SCH (06:41)
[2017-03-23] MEDS: KCL 10 MEQ TAB (MICRO K) PO SCH (06:41)
[2017-03-23] MEDS: MULTIVIT W/MINERALS TAB (THERAGRAN M) PO SCH (06:41)
[2017-03-23] MEDS: OMEGA 3 (FISH OIL) 1000 MG CAP PO SCH ×2 (06:41→17:39)
[2017-03-23] MEDS: MELOXICAM 7.5 MG (MOBIC) TABLET PO SCH (08:28)
[2017-03-23] MEDS: DIGOXIN 0.125 MG (LANOXIN) TAB PO SCH (08:28)
[2017-03-23] MEDS: ASPIRIN E.C. 81 MG (ECOTRIN) TAB PO SCH (08:28)
[2017-03-23] MEDS: FUROSEMIDE 40 MG (LASIX) TAB PO SCH (08:28)
[2017-03-23] MEDS: MILK OF MAGNESIA 400 MG/5 ML 30 ML UDC PO SCH ×2 (08:28→22:18)
[2017-03-23] MEDS: ATENOLOL 50 MG (TENORMIN) TAB PO SCH (08:28)
[2017-03-23] MEDS: DOCUSATE SODIUM 100 MG (COLACE) CAP PO SCH ×2 (08:28→22:18)
--- NOTE | 2017-03-23 08:59 | Progress Note (SOAP) ---
Subjective Time Seen by Provider: 08:55 Subjective/Events-last exam compression fracture. COPD. Insomnia. Not sleeping well at all. Increase Seroquel and melatonin ordered.. Objective Exam Vital Signs Date Time Temp Pulse Resp B/P (MAP) Pulse Ox O2 Delivery O2 Flow Rate FiO2 03/23/17 07:13 97.2 03/23/17 05:40 97.2 69 19 132/78 96 Nasal Cannula 3.00 03/22/17 22:01 Nasal Cannula 3.00 03/22/17 20:35 Nasal Cannula 3.00 03/22/17 17:01 97.0 65 20 130/68 96 Nasal Cannula 3.00 I & O 03/23/17 07:00 Intake Total 1380 ml Balance 1380 ml Capillary Refill : General Appearance: No Apparent Distress Neck: Full Range of Motion Respiratory: No Accessory Muscle Use, No Respiratory Distress, Decreased Breath Sounds, Other (Patient on oxygen) Cardiovascular: Regular Rate, Rhythm, No Murmur Results Lab Laboratory Tests 03/23/17 05:00: Prothrombin Time 24.2H, INR Comment 2.2H Assessment/Plan Assessment/Plan Assess & Plan/Chief Complaint compression fracture. Atrial fibrillation. COPD using oxygen L1 compression fracture .. . 03/13/17. L1 compression fracture. Atrial fibrillation. COPD. Patient on oxygen.. . 03/16/17. Compression fracture. atrial fibrillation. COPD Patient does not feel he is of fall candidate. Patient put on Coumadin. . 03/17/17. Compression fracture. Atrial fib.. COPD. Patient having some pain. . . Compression fracture. A. fib. COPD. Patient slept last night. Patient having more endurance. Patient happy today . Compression fracture. A. fib. COPD. 03/19/17. Patient slept last night. Patient feels he is improving. . 03/20/17. Compression fracture. atrial fibrillation. New-onset constipation. COPD. Using oxygen.. . 03/23/17. Compression fracture. COPD. Insomnia. Muscle spasms. Increase Seroquel and put on melatonin Patient given muscle relaxant Clinical Quality Measures DVT/VTE Risk/Contraindication: Risk Factor Score Per Nursin RFS Level Per Nursing on Admit: 4+=Very High MIKO KELLY DO Mar 23, 2017 08:59
--- NOTE | 2017-03-23 11:00 | Physical Therapy Daily Note ---
PT Daily Note-Current Subjective Patient in recliner pre tx, agrees to PT, has pain of 7-8/10 in back. Appearance Patient in recliner post tx, has nurse call, phone, tray, all needs met. Mental Status Patient Orientation: Normal For Age Attachments: Oxygen Transfers Functional [place] Measure 0=Not Assessed/NA 4=Minimal Assistance 1=Total Assistance 5=Supervision or Setup 2=Maximal Assistance 6=Modified [place] 3=Moderate Assistance 7=Complete IndependenceIRFPAI Quality Coding Scale 6 Independent with activity with or without an assistive device 5 Patient requires set up or clean up by helper. Patient completes activity by themselves 4 Supervision or touching assist (CGA). [place] provide cues , steadying assist 3 The helper provides less than half the effort to complete the activity 2 The helper provides more than half the effort to complete the activity 1 Dependent. The helper does all the effort to complete an activity 7 Patient refused to complete or attempt activity 9 The patient did not perform the activity before the current illness or injury 88 Not attempted due to Medical conditions or safety concerns Transfers (B, C, W/C) (FIM): 4 Sit to/from Stand: 4 CGA Gait Training Gait (FIM): 4 Distance: 250'x2 Gait Level of Assist: 4 Gait Persons Needed: 1 Gait Assistive Device: FWW CGA mostly when turning, slow ambulation, gets SOB, cues for purse lip breathing Exercises NuStep Minutes: 15 NuStep Workload: 5 Treatments transfers, ambulation, functional strengthening Assessment Current Status: Fair Progress Improved endurance, discussed bed rails for home with patient after getting back to his room PT Short Term Goals Short Term Goals Time Frame: Mar 18, 2017 Gait (FIM): 5 Gait Distance Comment: 200' Gait Level of Assist: 5 Gait Assistive Device: FWW PT Natural Resources Engineer Goals Natural Resources Engineer Goals PT Natural Resources Engineer Goals Time Frame: Apr 01, 2017 Transfers (B,C,W/C) (FIM): 6 Sit to Lying (QC): 6 Lying-Sitting on Side/Bed(QC): 6 Sit to Stand (QC): 6 Rollin Roll Left to Right (QC): 6 Chair/Ern-iq-Jsdwu Xfer(QC): 6 Car Transfer (QC): 5 Gait (FIM): 6 Distance: 300' Walk 10 feet (QC): 6 Walk 10ft-Uneven Surface(QC): 6 Walk 50ft with 2 Turns (QC): 6 Walk 150 ft (QC): 6 Gait Assistive Device: FWW Stairs (FIM): 5 # of Steps: 12 1 Step (curb) (QC): 4 4 Steps (QC): 4 12 Steps (QC): 4 Stairs Level Of Assist: 5 PT Plan Problem List Problem List: Activity Tolerance, Functional Strength, Safety, Balance, Gait, Transfer, Bed Mobility, ROM Treatment/Plan Treatment Plan: Continue Plan of Care Treatment Plan: Bed Mobility, Education, Functional Activity Jose Guadalupe, Functional Strength, Group Therapy, Gait, Safety, Therapeutic Exercise, Transfers Treatment Duration: Apr 01, 2017 Frequency: At least 5-7 days/Wk (IRF) Estimated Hrs Per Day: 1.5 hours per day Patient and/or Family Agrees t: Yes Safety Risks/Education Patient Education: Gait Training, Transfer Techniques, Correct Positioning, Safety Issues Teaching Recipient: Patient Teaching Methods: Demonstration, Discussion Response to Teaching: Reinforcement Needed Time/GCodes Time In: 1015 Time Out: 1100 Total Billed Treatment Time: 45 Total Billed Treatment 1 visit EX 15' GT 30' SHAI KIM PT Mar 23, 2017 11:00
--- NOTE | 2017-03-23 11:33 | Occupational Ther Daily Note ---
OT Current Status-Daily Note Subjective Pt sitting in chair, agrees to treatment. Pt reports 7/10 back pain. Mental Status/Objective Functional [place] Measure 0=Not Assessed/NA 4=Minimal Assistance 1=Total Assistance 5=Supervision or Setup 2=Maximal Assistance 6=Modified [place] 3=Moderate Assistance 7=Complete [place] Attachments: Oxygen ADL-Treatment Pt requesting to complete ADLs this morning. Sit to stand with SBA. Gait to restroom with FWW. [place] transferred [place] [facility] [place] with SBA. Doffed clothing with SBA. Uses dressing stick to doff shorts and socks. Transfer to walk in shower with SBA. Pt completed bathing with SBA and increased time. Uses long handled sponge to wash lower legs and feet. Pt able to dry all areas with SBA. Don pullover shirt with set up. Pt able to don underwear and shorts with SBA for standing balance during pant hike. Pt resistant to using sock aid, but agrees to attempt with encouragement. Pt able to don socks with sock aid, but requests assist to pull up tighter. Pt used long shoe horn to don shoe. Able to don right shoe with set up, but requires minimal assistance with left shoe. Pt stood at sink to comb hair and brush teeth with SBA. Transfer to chair with SBA. Pt requires rest breaks throughout treatment and requires increased time for task completion. Pt sitting in chair with needs met after session. Functional [place] Measure 0=Not Assessed/NA 4=Minimal Assistance 1=Total Assistance 5=Supervision or Setup 2=Maximal Assistance 6=Modified [place] 3=Moderate Assistance 7=Complete IndependenceIRFPAI Quality Coding Scale 6 Independent with activity with or without an assistive device 5 Patient requires set up or clean up by helper. Patient completes activity by themselves 4 Supervision or touching assist (CGA). [place] provide cues , steadying assist 3 The helper provides less than half the effort to complete the activity 2 The helper provides more than half the effort to complete the activity 1 Dependent. The helper does all the effort to complete an activity 7 Patient refused to complete or attempt activity 9 The patient did not perform the activity before the current illness or injury 88 Not attempted due to Medical conditions or safety concerns Grooming (FIM): 5 Oral Hygiene (QC): 5 Bathing (FIM): 5 Shower/Bathe Self (QC): 5 Upper Body (FIM): 5 Upper Body Dressing (QC): 5 Lower Body Dressing (FIM): 4 Lower Body Dressing (QC): 4 On/Off Footwear (QC): 3 Toilet/Commode Transfer (FIM): 5 Shower Transfer(FIM): 5 OT Short Term Goals Short Term Goals Time Frame: Mar 20, 2017 Bathing(FIM): 5 Toilet/Commode Transfer(FIM): 5 Shower Transfer(FIM): 5 Additional Short Term Goals: 2-Verbalize Understanding, 3-ImproveStrength/Jose Guadalupe 1=Demonstrate adherence to instructed precautions during ADL tasks. 2=Patient will verbalize/demonstrate understanding of assistive devices/ modifications for ADL. 3=Patient will improve strength/tolerance for activity to enable patient to perform ADL's. OT Long-Term Goals Long-Term Goals Time Frame: Apr 03, 2017 Eating (FIM): 6 Eating (QC): 6 Groomin Oral Hygiene (QC): 6 Bathing(FIM): 6 Shower/Bathe Self (QC): 6 Upper Body Dressing(FIM): 6 Upper Body Dressing (QC): 6 Lower Body Dressing(FIM): 6 Lower Body Dressing (QC): 6 On/Off Footwear (QC): 6 Toileting(FIM): 6 Toileting Hygiene (QC): 6 Toilet/Commode Transfer(FIM): 6 Toilet/Commode Transfer (QC): 6 Shower Transfer(FIM): 6 Additional Goals: 2-Verbalize Understanding, 3-ImproveStrength/Jose Guadalupe 1=Demonstrate adherence to instructed precautions during ADL tasks. 2=Patient will verbalize/demonstrate understanding of assistive devices/ modifications for ADL. 3=Patient will improve strength/tolerance for activity to enable patient to perform ADL's. OT Education/Plan Problem List/Assessment Pt would benefit from skilled OT to increase his independence in basic self care to allow him to safely return home with and to decrease caregiver burden Discharge Recommendations Plan/Recommendations: Continue POC Treatment Plan/Plan of Care Patient would benefit from OT for education, treatment and training to promote independence in ADL's, mobility, safety and/or upper extremity function for ADL' s. Plan of Care: ADL Retraining, Functional Mobility, Group Exercise/Act as Ind ( education, exercise, activity tolerance, functional activities, socialization), UE Funct Exercise/Act, UE Neuromus Re-Ed/Coord Treatment Duration: Apr 03, 2017 Frequency: At least 5-7 days/Wk (IRF) (15 hours over 7 days) Estimated Hrs Per Day: 1.5 hours per day Agreement: Yes Rehab Potential: Good Time/GCodes Start Time: 09:00 Stop Time: 10:00 Total Time Billed (hr/min): 60 Billed Treatment Time 1 visit, ADLx4(60minutes) MEG BALDERAS OT Mar 23, 2017 11:33
--- NOTE | 2017-03-23 15:12 | Therapy Group Daily Note ---
Therapy Daily Group Note Patient Education Topic Fall Prevention, Home Safety Other/Notes Pt ambulated from room to OT/PT group with SBA using FWW. Group consisted of introductions (name, place living, childhood memory), socialization, transfer safety education (bed, chair, floor) and group discussion. Pt was quiet throughout group. If asked direct question pt was able to state appropriate answer. Pt attended to discussions and appeared to understand the education given. Pt ambulated back to room to use restroom. Pt ambulated from restroom to recliner. All needs met in room. Call light/phone in reach. Start Time: 13:00 Stop Time: 14:15 Total Billed Treatment Time: 75 Total Billed Treatment 1-GRP RAY CUI Mar 23, 2017 15:12
[2017-03-23] MEDS: warFARin 5 MG (COUMADIN) TAB PO SCH (17:39)
[2017-03-23 18:04] VITALS: BP 124/76
--- NOTE | 2017-03-23 18:56 | PM & R (SOAP) Progress Note ---
Subjective Time Seen by Provider: 18:50 Subjective/Events-last exam Patient was seen in his room this evening Patient min assist for tranfers and gait. Patient feels that mattress is contributing to his insomnia DR Patricia has addressed Review of Systems Musculoskeletal: back pain Objective Exam Last Set of Vital Signs Vital Signs Date Time Temp Pulse Resp B/P (MAP) Pulse Ox O2 Delivery O2 Flow Rate FiO2 03/23/17 16:01 Nasal Cannula 3.00 03/23/17 07:13 97.2 03/23/17 05:40 69 19 132/78 96 Capillary Refill : I&O Intake and Output 03/23/17 00:00 Intake Total 1430 ml Balance 1430 ml Intake Oral 1430 ml # Voids 12 # Bowel Movements 1 General: Alert, Oriented X3, Cooperative, No Acute Distress HEENT: Atraumatic, PERRLA, EOMI, Mucous Memb Moist/K[place], Other (02 by N/C in place) Neck: Supple, No JVD Lungs: Clear to Auscultation Heart: Regular Rate Abdomen: Normal Bowel Sounds, Soft, No Tenderness Extremities: No Edema Neuro: Sensation Intact, Other (strength 4+/5 except hip flexion 3+/5 Left ankle fused) Results Lab Laboratory Tests 03/21/17 04:31: Prothrombin Time 20.8H, INR Comment 1.8H 03/22/17 06:13: Prothrombin Time 21.5H, INR Comment 1.9H 03/23/17 05:00: Prothrombin Time 24.2H, INR Comment 2.2H Assessment/Plan Assessment 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 Black [facility]-improving 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 Chronic steroid usage-on taper on this med for dermatologic condition as per patients from Robotics Application Engineer Janell GERARD 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
[2017-03-23] MEDS: QUEtiapine 25 MG (SEROquel) TAB IMMEDIATE RELEASE PO SCH (22:17)
[2017-03-23] MEDS: POLYETHYLENE GLYCOL 17 GM (MIRALAX) PACK PO SCH (22:18)
[2017-03-23] MEDS: MELATONIN 3 MG TABLET PO SCH (22:25)
[2017-03-23] MEDS: BACLOFEN 10 MG (LIORESAL) TAB PO SCH (22:28)
[2017-03-24] MEDS: HYDROcodone/APAP 5 MG/325 MG (LORTAB) TAB PO PRN ×4 (05:23→21:43)
[2017-03-24 05:51] VITALS: BP 155/79
[2017-03-24 06:55] LABS: INR 2.1 (0.8-1.4); PROTHROMBIN TIME PATIENT 23.4 SEC (12.2-14.7)
[2017-03-24] MEDS: PANTOPRAZOLE 20 MG TABLET (PROTONIX) PO SCH (06:57)
[2017-03-24] MEDS: MULTIVIT W/MINERALS TAB (THERAGRAN M) PO SCH (06:57)
[2017-03-24] MEDS: predniSONE 10 MG TAB PO SCH (06:57)
[2017-03-24] MEDS: KCL 10 MEQ TAB (MICRO K) PO SCH (06:57)
[2017-03-24] MEDS: OMEGA 3 (FISH OIL) 1000 MG CAP PO SCH ×2 (06:57→16:55)
--- NOTE | 2017-03-24 08:37 | Progress Note (SOAP) ---
Subjective Time Seen by Provider: 08:35 Objective Exam Vital Signs Date Time Temp Pulse Resp B/P (MAP) Pulse Ox O2 Delivery O2 Flow Rate FiO2 03/24/17 08:23 Nasal Cannula 3.00 03/24/17 05:51 97.7 83 20 155/79 91 Nasal Cannula 3.00 03/23/17 21:00 Nasal Cannula 3.00 03/23/17 18:10 97.2 03/23/17 18:04 96.8 82 14 124/76 99 03/23/17 16:01 Nasal Cannula 3.00 03/23/17 09:34 Nasal Cannula 3.00 I & O 03/24/17 07:00 Intake Total 1640 ml Balance 1640 ml Capillary Refill : General Appearance: No Apparent Distress, WD/WN HEENT: Normal ENT Inspection Neck: Full Range of Motion, Normal Inspection Respiratory: No Accessory Muscle Use, No Respiratory Distress, Decreased Breath Sounds Cardiovascular: No Murmur Gastrointestinal: non tender, soft Results Lab Laboratory Tests 03/24/17 06:30: Prothrombin Time 23.4H, INR Comment 2.1H Assessment/Plan Assessment/Plan Assess & Plan/Chief Complaint compression fracture. Atrial fibrillation. COPD using oxygen L1 compression fracture .. . 03/13/17. L1 compression fracture. Atrial fibrillation. COPD. Patient on oxygen.. . 03/16/17. Compression fracture. atrial fibrillation. COPD Patient does not feel he is of fall candidate. Patient put on Coumadin. . 03/17/17. Compression fracture. Atrial fib.. COPD. Patient having some pain. . . Compression fracture. A. fib. COPD. Patient slept last night. Patient having more endurance. Patient happy today . Compression fracture. A. fib. COPD. 03/19/17. Patient slept last night. Patient feels he is improving. . 03/20/17. Compression fracture. atrial fibrillation. New-onset constipation. COPD. Using oxygen.. . 03/23/17. Compression fracture. COPD. Insomnia. Muscle spasms. Increase Seroquel and put on melatonin Patient given muscle relaxant. . 03/24/17. Compression fracture. COPD. Insomnia better patient did sleep last night. Muscle spasms Clinical Quality Measures DVT/VTE Risk/Contraindication: Risk Factor Score Per Nursin RFS Level Per Nursing on Admit: 4+=Very High MIKO KELLY DO Mar 24, 2017 08:37
[2017-03-24] MEDS: DOCUSATE SODIUM 100 MG (COLACE) CAP PO SCH ×2 (08:46→21:42)
[2017-03-24] MEDS: MILK OF MAGNESIA 400 MG/5 ML 30 ML UDC PO SCH ×2 (08:46→21:49)
[2017-03-24] MEDS: ATENOLOL 50 MG (TENORMIN) TAB PO SCH (08:47)
[2017-03-24] MEDS: DIGOXIN 0.125 MG (LANOXIN) TAB PO SCH (08:47)
[2017-03-24] MEDS: ASPIRIN E.C. 81 MG (ECOTRIN) TAB PO SCH (08:47)
[2017-03-24] MEDS: MELOXICAM 7.5 MG (MOBIC) TABLET PO SCH (08:48)
[2017-03-24] MEDS: FUROSEMIDE 40 MG (LASIX) TAB PO SCH (08:53)
--- NOTE | 2017-03-24 10:23 | Occupational Ther Daily Note ---
OT Current Status-Daily Note Subjective Pt sitting in chair, agrees to treatment. Mental Status/Objective Functional [place] Measure 0=Not Assessed/NA 4=Minimal Assistance 1=Total Assistance 5=Supervision or Setup 2=Maximal Assistance 6=Modified [place] 3=Moderate Assistance 7=Complete [place] Attachments: Oxygen ADL-Treatment Pt sit to stand with supervision. Gait to restroom with FWW. Transfer to [facility] over toilet with SBA. Pt doffed clothing with SBA while seated on toilet. Used dressing stick to doff underwear, shorts, and socks. Transfer to walk in shower with SBA using grab bars for balance and safety. Seated bathing completed using hand held shower and long handled sponge. Pt able to wash/dry all areas with SBA. Don pullover shirt with set up. Pt able to don underwear and shorts with minimal assistance to pull up in the back. Pt donned bilateral socks using sock aid. Pt used long handled shoe horn to don shoes with minimal assistance. Pt stood at sink to brush teeth and comb hair with SBA. Pt fatigues and has some shortness of breath with activity, requires rest breaks and increased time for functional task completion. Pt sitting in chair with needs met after session. Functional [place] Measure 0=Not Assessed/NA 4=Minimal Assistance 1=Total Assistance 5=Supervision or Setup 2=Maximal Assistance 6=Modified [place] 3=Moderate Assistance 7=Complete IndependenceIRFPAI Quality Coding Scale 6 Independent with activity with or without an assistive device 5 Patient requires set up or clean up by helper. Patient completes activity by themselves 4 Supervision or touching assist (CGA). [place] provide cues , steadying assist 3 The helper provides less than half the effort to complete the activity 2 The helper provides more than half the effort to complete the activity 1 Dependent. The helper does all the effort to complete an activity 7 Patient refused to complete or attempt activity 9 The patient did not perform the activity before the current illness or injury 88 Not attempted due to Medical conditions or safety concerns Grooming (FIM): 5 Oral Hygiene (QC): 5 Bathing (FIM): 5 Shower/Bathe Self (QC): 4 Upper Body (FIM): 5 Upper Body Dressing (QC): 5 Lower Body Dressing (FIM): 4 Lower Body Dressing (QC): 3 On/Off Footwear (QC): 3 Toilet/Commode Transfer (FIM): 5 Shower Transfer(FIM): 5 OT Short Term Goals Short Term Goals Time Frame: Mar 20, 2017 Bathing(FIM): 5 Toilet/Commode Transfer(FIM): 5 Shower Transfer(FIM): 5 Additional Short Term Goals: 2-Verbalize Understanding, 3-ImproveStrength/Jose Guadalupe 1=Demonstrate adherence to instructed precautions during ADL tasks. 2=Patient will verbalize/demonstrate understanding of assistive devices/ modifications for ADL. 3=Patient will improve strength/tolerance for activity to enable patient to perform ADL's. OT [facility] Goals Industrial Design Engineer Goals Time Frame: Apr 03, 2017 Eating (FIM): 6 Eating (QC): 6 Groomin Oral Hygiene (QC): 6 Bathing(FIM): 6 Shower/Bathe Self (QC): 6 Upper Body Dressing(FIM): 6 Upper Body Dressing (QC): 6 Lower Body Dressing(FIM): 6 Lower Body Dressing (QC): 6 On/Off Footwear (QC): 6 Toileting(FIM): 6 Toileting Hygiene (QC): 6 Toilet/Commode Transfer(FIM): 6 Toilet/Commode Transfer (QC): 6 Shower Transfer(FIM): 6 Additional Goals: 2-Verbalize Understanding, 3-ImproveStrength/Jose Guadalupe 1=Demonstrate adherence to instructed precautions during ADL tasks. 2=Patient will verbalize/demonstrate understanding of assistive devices/ modifications for ADL. 3=Patient will improve strength/tolerance for activity to enable patient to perform ADL's. OT Education/Plan Problem List/Assessment Pt would benefit from skilled OT to increase his independence in basic self care to allow him to safely return home with and to decrease caregiver burden Discharge Recommendations Plan/Recommendations: Continue POC Treatment Plan/Plan of Care Patient would benefit from OT for education, treatment and training to promote independence in ADL's, mobility, safety and/or upper extremity function for ADL' s. Plan of Care: ADL Retraining, Functional Mobility, Group Exercise/Act as Ind ( education, exercise, activity tolerance, functional activities, socialization), UE Funct Exercise/Act, UE Neuromus Re-Ed/Coord Treatment Duration: Apr 03, 2017 Frequency: At least 5-7 days/Wk (IRF) (15 hours over 7 days) Estimated Hrs Per Day: 1.5 hours per day Agreement: Yes Rehab Potential: Good Time/GCodes Start Time: 09:00 Stop Time: 10:00 Total Time Billed (hr/min): 60 Billed Treatment Time 1 visit, ADLx4(60minutes) MEG BALDERAS OT Mar 24, 2017 10:23
--- NOTE | 2017-03-24 10:59 | Physical Therapy Daily Note ---
PT Daily Note-Current Subjective Patient in recliner pre tx, agrees to PT, has pain of 9/10. Nurse was able to give him pain meds during PT treatment. Appearance Patient in recliner post tx with nurse call, phone, tray, all needs met. Mental Status Patient Orientation: Person, Place, Situation Attachments: Oxygen 4L of O2 nasal canula. Transfers Functional [place] Measure 0=Not Assessed/NA 4=Minimal Assistance 1=Total Assistance 5=Supervision or Setup 2=Maximal Assistance 6=Modified [place] 3=Moderate Assistance 7=Complete IndependenceIRFPAI Quality Coding Scale 6 Independent with activity with or without an assistive device 5 Patient requires set up or clean up by helper. Patient completes activity by themselves 4 Supervision or touching assist (CGA). [employer] provide cues , steadying assist 3 The helper provides less than half the effort to complete the activity 2 The helper provides more than half the effort to complete the activity 1 Dependent. The helper does all the effort to complete an activity 7 Patient refused to complete or attempt activity 9 The patient did not perform the activity before the current illness or injury 88 Not attempted due to Medical conditions or safety concerns Transfers (B, C, W/C) (FIM): 5 Sit to/from Stand: 5 Gait Training Gait (FIM): 5 Distance: 250'x2 Gait Level of Assist: 5 Gait Persons Needed: 1 Gait Assistive Device: FWW slow, antalgic, may need a standing rest break, cues for purse lip breathing Exercises Standing: Hip Abduction, Hamstring curls, Heel/toe raises, Mini squats Standing Reps: 20 NuStep Minutes: 15 NuStep Workload: 4 Treatments transfers, ambulation, functional strengthening Assessment Current Status: Fair Progress Patient gets SOB and needs frequent rest breaks. PT Short Term Goals Short Term Goals Time Frame: Mar 18, 2017 Gait (FIM): 5 Gait Distance Comment: 200' Gait Level of Assist: 5 Gait Assistive Device: FWW PT [place] Goals Longterm Goals PT Longterm Goals Time Frame: Apr 01, 2017 Transfers (B,C,W/C) (FIM): 6 Sit to Lying (QC): 6 Lying-Sitting on Side/Bed(QC): 6 Sit to Stand (QC): 6 Rollin Roll Left to Right (QC): 6 Chair/Exd-ud-Dqnca Xfer(QC): 6 Car Transfer (QC): 5 Gait (FIM): 6 Distance: 300' Walk 10 feet (QC): 6 Walk 10ft-Uneven Surface(QC): 6 Walk 50ft with 2 Turns (QC): 6 Walk 150 ft (QC): 6 Gait Assistive Device: FWW Stairs (FIM): 5 # of Steps: 12 1 Step (curb) (QC): 4 4 Steps (QC): 4 12 Steps (QC): 4 Stairs Level Of Assist: 5 PT Plan Problem List Problem List: Activity Tolerance, Functional Strength, Safety, Balance, Gait, Transfer, Bed Mobility, ROM Treatment/Plan Treatment Plan: Continue Plan of Care Treatment Plan: Bed Mobility, Education, Functional Activity Jose Guadalupe, Functional Strength, Group Therapy, Gait, Safety, Therapeutic Exercise, Transfers Treatment Duration: Apr 01, 2017 Frequency: At least 5-7 days/Wk (IRF) Estimated Hrs Per Day: 1.5 hours per day Patient and/or Family Agrees t: Yes Safety Risks/Education Patient Education: Gait Training, Transfer Techniques, Correct Positioning, Safety Issues Teaching Recipient: Patient Teaching Methods: Demonstration, Discussion Response to Teaching: Reinforcement Needed Time/GCodes Time In: 1000 Time Out: 1100 Total Billed Treatment Time: 60 Total Billed Treatment 1 visit EX 30' GT 30' SHAI KIM PT Mar 24, 2017 10:59
--- NOTE | 2017-03-24 11:09 | PM & R (SOAP) Progress Note ---
Subjective Time Seen by Provider: 07:55 Subjective/Events-last exam Patient was seen in his room this AM Patient SBA for transfers Patient reports better sleep with New bed and sleeper Objective Exam Last Set of Vital Signs Vital Signs Date Time Temp Pulse Resp B/P (MAP) Pulse Ox O2 Delivery O2 Flow Rate FiO2 03/24/17 08:23 Nasal Cannula 3.00 03/24/17 05:51 97.7 83 20 155/79 91 Capillary Refill : I&O Intake and Output 03/24/17 00:00 Intake Total 1050 ml Balance 1050 ml Intake Oral 1050 ml # Voids 10 General: Alert, Oriented X3, Cooperative, No Acute Distress HEENT: Atraumatic, PERRLA, EOMI, Mucous Memb Moist/[place], Other (02 by N/C in place) Neck: Supple, No JVD Lungs: Clear to Auscultation Heart: Regular Rate Abdomen: Normal Bowel Sounds, Soft, No Tenderness Extremities: No Edema Neuro: Sensation Intact, Other (strength 4+/5 except hip flexion 3+/5 Left ankle fused) Results Lab Laboratory Tests 03/22/17 06:13: Prothrombin Time 21.5H, INR Comment 1.9H 03/23/17 05:00: Prothrombin Time 24.2H, INR Comment 2.2H 03/24/17 06:30: Prothrombin Time 23.4H, INR Comment 2.1H Assessment/Plan Assessment 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 Chronic A FIB -Coumadin resumed=INR approaching therapeutic range-1.8 today OA s/p Bilateral TKRS Postoperative Ileus resolved Pain managemen Recurrent constipation -meds adjusted with improvement Insomnia-improved with change in H bed and addition of sleeper Plan CobtinuePT/OT/Pain management ST has signed off Appreciate DR Coello note Pain management meds again adjusted earlier this stay See orders Trend INR and adjust coumadin accordingly-INR now therapeutic Adjust meds for constipation as needed Patient reports BM with adjustment in meds New bed and sleeper for insomnia-with improvement noted Next Team Conference tomorrow 03/25/17 ROSI RODRIGES MD Mar 24, 2017 11:09
--- NOTE | 2017-03-24 14:01 | Physical Therapy Daily Note ---
PT Daily Note-Current Subjective Patient in recliner pre tx, agrees to PT. When asked what his pain level was he says, "I don't know, not very much right now". Appearance Patient in recliner post tx with nurse call, phone, tray, in room. Mental Status Patient Orientation: Person, Place, Situation Attachments: Oxygen Transfers Functional [place] Measure 0=Not Assessed/NA 4=Minimal Assistance 1=Total Assistance 5=Supervision or Setup 2=Maximal Assistance 6=Modified [place] 3=Moderate Assistance 7=Complete IndependenceIRFPAI Quality Coding Scale 6 Independent with activity with or without an assistive device 5 Patient requires set up or clean up by helper. Patient completes activity by themselves 4 Supervision or touching assist (CGA). [place] provide cues , steadying assist 3 The helper provides less than half the effort to complete the activity 2 The helper provides more than half the effort to complete the activity 1 Dependent. The helper does all the effort to complete an activity 7 Patient refused to complete or attempt activity 9 The patient did not perform the activity before the current illness or injury 88 Not attempted due to Medical conditions or safety concerns Transfers (B, C, W/C) (FIM): 5 Sit to/from Stand: 5 Gait Training Gait (FIM): 5 Distance: 250'x2 Gait Level of Assist: 5 Gait Persons Needed: 1 Gait Assistive Device: FWW Cues for purse lip breathing, gets SOB, may take a standing rest break. Exercises LAQ alternating for 5 min with 2# ankle weights Treatments transfers, ambulation, functional strengthening Assessment Current Status: Fair Progress improving endurance, needs rest breaks between activities PT Short Term Goals Short Term Goals Time Frame: Mar 18, 2017 Gait (FIM): 5 Gait Distance Comment: 200' Gait Level of Assist: 5 Gait Assistive Device: FWW PT Data Integrity Specialist Goals Data Integrity Specialist Goals PT [facility] Goals Time Frame: Apr 01, 2017 Transfers (B,C,W/C) (FIM): 6 Sit to Lying (QC): 6 Lying-Sitting on Side/Bed(QC): 6 Sit to Stand (QC): 6 Rollin Roll Left to Right (QC): 6 Chair/Hdo-ap-Meuwg Xfer(QC): 6 Car Transfer (QC): 5 Gait (FIM): 6 Distance: 300' Walk 10 feet (QC): 6 Walk 10ft-Uneven Surface(QC): 6 Walk 50ft with 2 Turns (QC): 6 Walk 150 ft (QC): 6 Gait Assistive Device: FWW Stairs (FIM): 5 # of Steps: 12 1 Step (curb) (QC): 4 4 Steps (QC): 4 12 Steps (QC): 4 Stairs Level Of Assist: 5 PT Plan Problem List Problem List: Activity Tolerance, Functional Strength, Safety, Balance, Gait, Transfer, Bed Mobility, ROM Treatment/Plan Treatment Plan: Continue Plan of Care Treatment Plan: Bed Mobility, Education, Functional Activity Jose Guadalupe, Functional Strength, Group Therapy, Gait, Safety, Therapeutic Exercise, Transfers Treatment Duration: Apr 01, 2017 Frequency: At least 5-7 days/Wk (IRF) Estimated Hrs Per Day: 1.5 hours per day Patient and/or Family Agrees t: Yes Safety Risks/Education Patient Education: Gait Training, Transfer Techniques, Safety Issues Teaching Recipient: Patient Teaching Methods: Demonstration, Discussion Response to Teaching: Reinforcement Needed Time/GCodes Time In: 1330 Time Out: 1400 Total Billed Treatment Time: 30 Total Billed Treatment 1 visit GT 30' SHAI KIM PT Mar 24, 2017 14:01
--- NOTE | 2017-03-24 14:24 | Occupational Ther Daily Note ---
OT Current Status-Daily Note Subjective Pt sitting in chair, agrees to treatment. Mental Status/Objective Functional [place] Measure 0=Not Assessed/NA 4=Minimal Assistance 1=Total Assistance 5=Supervision or Setup 2=Maximal Assistance 6=Modified [place] 3=Moderate Assistance 7=Complete [place] Attachments: Oxygen ADL-Treatment Pt sit to stand with SBA. Gait to restroom with FWW. Transfer to [facility] over toilet with SBA. Pt able to manage clothing and hygiene with SBA. Pt stood at sink to wash hands with SBA. Functional [place] Measure 0=Not Assessed/NA 4=Minimal Assistance 1=Total Assistance 5=Supervision or Setup 2=Maximal Assistance 6=Modified [place] 3=Moderate Assistance 7=Complete IndependenceIRFPAI Quality Coding Scale 6 Independent with activity with or without an assistive device 5 Patient requires set up or clean up by helper. Patient completes activity by themselves 4 Supervision or touching assist (CGA). [place] provide cues , steadying assist 3 The helper provides less than half the effort to complete the activity 2 The helper provides more than half the effort to complete the activity 1 Dependent. The helper does all the effort to complete an activity 7 Patient refused to complete or attempt activity 9 The patient did not perform the activity before the current illness or injury 88 Not attempted due to Medical conditions or safety concerns Toileting (FIM): 5 Toileting Hygiene (QC): 4 Toilet/Commode Transfer (FIM): 5 Toilet Transfer (QC): 4 Other Treatment Gait to therapy gym with FWW, no LOB. Requires assist for oxygen tank. Arm bike x10 minutes to increase overall strength and activity tolerance needed for functional tasks. Pt completed activity with steady pace and no rest breaks. Pt returned to room, transferred to chair with SBA. Pt sitting in chair with needs met after session. OT Short Term Goals Short Term Goals Time Frame: Mar 20, 2017 Bathing(FIM): 5 Toilet/Commode Transfer(FIM): 5 Shower Transfer(FIM): 5 Additional Short Term Goals: 2-Verbalize Understanding, 3-ImproveStrength/Jose Guadalupe 1=Demonstrate adherence to instructed precautions during ADL tasks. 2=Patient will verbalize/demonstrate understanding of assistive devices/ modifications for ADL. 3=Patient will improve strength/tolerance for activity to enable patient to perform ADL's. OT Psychiatric Registered Nurse Goals Psychiatric Registered Nurse Goals Time Frame: Apr 03, 2017 Eating (FIM): 6 Eating (QC): 6 Groomin Oral Hygiene (QC): 6 Bathing(FIM): 6 Shower/Bathe Self (QC): 6 Upper Body Dressing(FIM): 6 Upper Body Dressing (QC): 6 Lower Body Dressing(FIM): 6 Lower Body Dressing (QC): 6 On/Off Footwear (QC): 6 Toileting(FIM): 6 Toileting Hygiene (QC): 6 Toilet/Commode Transfer(FIM): 6 Toilet/Commode Transfer (QC): 6 Shower Transfer(FIM): 6 Additional Goals: 2-Verbalize Understanding, 3-ImproveStrength/Jose Guadalupe 1=Demonstrate adherence to instructed precautions during ADL tasks. 2=Patient will verbalize/demonstrate understanding of assistive devices/ modifications for ADL. 3=Patient will improve strength/tolerance for activity to enable patient to perform ADL's. OT Education/Plan Problem List/Assessment Pt would benefit from skilled OT to increase his independence in basic self care to allow him to safely return home with and to decrease caregiver burden Discharge Recommendations Plan/Recommendations: Continue POC Treatment Plan/Plan of Care Patient would benefit from OT for education, treatment and training to promote independence in ADL's, mobility, safety and/or upper extremity function for ADL' s. Plan of Care: ADL Retraining, Functional Mobility, Group Exercise/Act as Ind ( education, exercise, activity tolerance, functional activities, socialization), UE Funct Exercise/Act, UE Neuromus Re-Ed/Coord Treatment Duration: Apr 03, 2017 Frequency: At least 5-7 days/Wk (IRF) (15 hours over 7 days) Estimated Hrs Per Day: 1.5 hours per day Agreement: Yes Rehab Potential: Good Time/GCodes Start Time: 13:00 Stop Time: 13:30 Total Time Billed (hr/min): 30 Billed Treatment Time 1 visit, ADL(10minutes), EX(20minutes) MEG BALDERAS OT Mar 24, 2017 14:24
[2017-03-24] MEDS: warFARin 5 MG (COUMADIN) TAB PO SCH (17:58)
[2017-03-24 18:02] VITALS: BP 143/88
[2017-03-24] MEDS: QUEtiapine 25 MG (SEROquel) TAB IMMEDIATE RELEASE PO SCH (21:43)
[2017-03-24] MEDS: BACLOFEN 10 MG (LIORESAL) TAB PO SCH (21:49)
[2017-03-24] MEDS: POLYETHYLENE GLYCOL 17 GM (MIRALAX) PACK PO SCH (21:49)
[2017-03-24] MEDS: MELATONIN 3 MG TABLET PO SCH (21:49)
[2017-03-25 05:14] LABS: INR 2.1 (0.8-1.4); PROTHROMBIN TIME PATIENT 23.2 SEC (12.2-14.7)
[2017-03-25 05:33] VITALS: BP 128/82
[2017-03-25] MEDS: OMEGA 3 (FISH OIL) 1000 MG CAP PO SCH ×2 (06:10→18:20)
[2017-03-25] MEDS: HYDROcodone/APAP 5 MG/325 MG (LORTAB) TAB PO PRN ×4 (06:10→18:51)
[2017-03-25] MEDS: KCL 10 MEQ TAB (MICRO K) PO SCH (06:10)
[2017-03-25] MEDS: PANTOPRAZOLE 20 MG TABLET (PROTONIX) PO SCH (06:10)
[2017-03-25] MEDS: MULTIVIT W/MINERALS TAB (THERAGRAN M) PO SCH (06:10)
--- NOTE | 2017-03-25 08:22 | Progress Note (SOAP) ---
Subjective Time Seen by Provider: 08:10 Subjective/Events-last exam compression fracture. Insomnia. Patient sleeping better. Bed is better Objective Exam Vital Signs Date Time Temp Pulse Resp B/P (MAP) Pulse Ox O2 Delivery O2 Flow Rate FiO2 03/25/17 05:33 97.4 80 18 128/82 94 Nasal Cannula 3.00 03/24/17 20:30 Nasal Cannula 3.00 03/24/17 18:02 97.6 74 16 143/88 95 03/24/17 09:00 Nasal Cannula 3.00 03/24/17 08:23 Nasal Cannula 3.00 I & O 03/25/17 07:00 Intake Total 1270 ml Balance 1270 ml Capillary Refill : General Appearance: No Apparent Distress, WD/WN HEENT: Normal ENT Inspection Neck: Full Range of Motion, Normal Inspection Respiratory: No Accessory Muscle Use, No Respiratory Distress, Other ( on oxygen) Cardiovascular: Regular Rate, Rhythm, No Murmur Results Lab Laboratory Tests 03/25/17 04:45: Prothrombin Time 23.2H, INR Comment 2.1H Assessment/Plan Assessment/Plan Assess & Plan/Chief Complaint compression fracture. Atrial fibrillation. COPD using oxygen L1 compression fracture .. . 03/13/17. L1 compression fracture. Atrial fibrillation. COPD. Patient on oxygen.. . 03/16/17. Compression fracture. atrial fibrillation. COPD Patient does not feel he is of fall candidate. Patient put on Coumadin. . 03/17/17. Compression fracture. Atrial fib.. COPD. Patient having some pain. . . Compression fracture. A. fib. COPD. Patient slept last night. Patient having more endurance. Patient happy today . Compression fracture. A. fib. COPD. 03/19/17. Patient slept last night. Patient feels he is improving. . 03/20/17. Compression fracture. atrial fibrillation. New-onset constipation. COPD. Using oxygen.. . 03/23/17. Compression fracture. COPD. Insomnia. Muscle spasms. Increase Seroquel and put on melatonin Patient given muscle relaxant. . 03/24/17. Compression fracture. COPD. Insomnia better patient did sleep last night. Muscle spasms. . 03/25/17 compression fracture. Insomnia. COPD. Muscle spasms. Patient doing better since sleeping Clinical Quality Measures DVT/VTE Risk/Contraindication: Risk Factor Score Per Nursin RFS Level Per Nursing on Admit: 4+=Very High MIKO KELLY DO Mar 25, 2017 08:22
[2017-03-25] MEDS: MELOXICAM 7.5 MG (MOBIC) TABLET PO SCH (08:37)
[2017-03-25] MEDS: ASPIRIN E.C. 81 MG (ECOTRIN) TAB PO SCH (08:37)
[2017-03-25] MEDS: FUROSEMIDE 40 MG (LASIX) TAB PO SCH (08:37)
[2017-03-25] MEDS: DOCUSATE SODIUM 100 MG (COLACE) CAP PO SCH ×3 (08:37→20:55)
[2017-03-25] MEDS: DIGOXIN 0.125 MG (LANOXIN) TAB PO SCH (08:37)
[2017-03-25] MEDS: ATENOLOL 50 MG (TENORMIN) TAB PO SCH (08:37)
[2017-03-25] MEDS: MILK OF MAGNESIA 400 MG/5 ML 30 ML UDC PO SCH ×2 (09:15→20:57)
--- NOTE | 2017-03-25 10:17 | Physical Therapy Daily Note ---
PT Daily Note-Current Subjective Pt sitting in recliner upon arrival. Nurse giving morning meds. Pt is a little anxious about pain and discharging soon. Pt agrees to PT. Pain Numeric Pain Scale: 8 Location: Right, Lower Location Body Site: Back Pain Description: Sharp Mental Status Patient Orientation: Person, Place, Time Attachments: Oxygen (3L at rest & 5L for walking) Transfers Functional [place] Measure 0=Not Assessed/NA 4=Minimal Assistance 1=Total Assistance 5=Supervision or Setup 2=Maximal Assistance 6=Modified [place] 3=Moderate Assistance 7=Complete IndependenceIRFPAI Quality Coding Scale 6 Independent with activity with or without an assistive device 5 Patient requires set up or clean up by helper. Patient completes activity by themselves 4 Supervision or touching assist (CGA). [place] provide cues , steadying assist 3 The helper provides less than half the effort to complete the activity 2 The helper provides more than half the effort to complete the activity 1 Dependent. The helper does all the effort to complete an activity 7 Patient refused to complete or attempt activity 9 The patient did not perform the activity before the current illness or injury 88 Not attempted due to Medical conditions or safety concerns Scootin Rollin Roll Left to Right (QC): 5 Supine to/from Sit: 5 Sit to/from Stand: 5 Sit to Lying (QC): 4 Sit to Stand (QC): 5 Weight Bearing Weight Bearing Restriction: Full Weight Bearing Location Restriction: LE Bilateral Gait Training Does the Patient Walk?: Yes Distance (FIM): 3=150 ft Distance: 350' Walk 10 feet (QC): 5 Walk 50 ft with 2 Turns(QC): 5 Walk 150 ft (QC): 5 Gait Level of Assist: 5 Gait Persons Needed: 1 Gait Assistive Device: FWW Pt fatigues and needs standing rest break during ambulation. Wheelchair Training Does the Pt Use a Wheelchair?: No Treatments Pt started tx with questions regarding when possible discharge might be due to anxious about being too soon to go, uncontrolled pain control as well as inability to complete bed mobility/transfers independently. PT discussed use of side bed rail with pt and how it would benefit. Pt discussed insurance coverage of railing and how it would be paid for. Pt practiced bed mobility and trasnfers from EOB to L Sidelying as well as Sidelying to EOB (completed 5 sets). Pt then transferred to Standing with FWW and ambulated in hallway using FWW at SBA before returning to room to rest in recliner. Pt rests with all needs met at end of tx. Assessment Current Status: Fair Progress Pt continues to have negative attitude toward discharge despite completing bed mobility and transfers with bed side rails and a little patience. Pt continues to have pain of 8+/10 during tx. PT Short Term Goals Short Term Goals Time Frame: Mar 18, 2017 Gait (FIM): 5 Gait Distance Comment: 200' Gait Level of Assist: 5 Gait Assistive Device: FWW PT Half-Way Goals Echocardiography Tech Goals PT Half-Way Goals Time Frame: Apr 01, 2017 Transfers (B,C,W/C) (FIM): 6 Sit to Lying (QC): 6 Lying-Sitting on Side/Bed(QC): 6 Sit to Stand (QC): 6 Rollin Roll Left to Right (QC): 6 Chair/Lhi-wi-Itwlz Xfer(QC): 6 Car Transfer (QC): 5 Gait (FIM): 6 Distance: 300' Walk 10 feet (QC): 6 Walk 10ft-Uneven Surface(QC): 6 Walk 50ft with 2 Turns (QC): 6 Walk 150 ft (QC): 6 Gait Assistive Device: FWW Stairs (FIM): 5 # of Steps: 12 1 Step (curb) (QC): 4 4 Steps (QC): 4 12 Steps (QC): 4 Stairs Level Of Assist: 5 PT Plan Problem List Problem List: Activity Tolerance, Functional Strength Treatment/Plan Treatment Plan: Continue Plan of Care Treatment Plan: Bed Mobility, Education, Functional Activity Jose Guadalupe, Functional Strength, Group Therapy, Gait, Safety, Therapeutic Exercise, Transfers Treatment Duration: Apr 01, 2017 Frequency: At least 5-7 days/Wk (IRF) Estimated Hrs Per Day: 1.5 hours per day Patient and/or Family Agrees t: Yes Safety Risks/Education Patient Education: Transfer Techniques, Disease Process, Safety Issues Teaching Recipient: Patient Teaching Methods: Discussion Response to Teaching: Verbalize Understanding Time/GCodes Time In: 900 Time Out: 1000 Total Billed Treatment Time: 60 Total Billed Treatment visit, FA x3 (45m) & GT (15m) CHINYERE STAUFFER ART GLASS SETTER Mar 25, 2017 10:17
--- NOTE | 2017-03-25 11:47 | Occupational Ther Daily Note ---
OT Current Status-Daily Note Subjective Pt agrees to treatment this am. Mental Status/Objective Functional [place] Measure 0=Not Assessed/NA 4=Minimal Assistance 1=Total Assistance 5=Supervision or Setup 2=Maximal Assistance 6=Modified [place] 3=Moderate Assistance 7=Complete [place] Attachments: Oxygen ADL-Treatment Pt in restroom when therapist arrives. Pt able to manage clothing, but states he is unable to complete hygiene after BM. Encouraged pt to attempt hygiene, but pt states "I can't do it, I've tried." Assist required for thorough hygiene. Pt transferred to walk in shower with SBA. Doff clothing with SBA. Uses dressing stick to doff lower body clothing. Seated bathing completed using hand held shower and long handled sponge. Pt able to wash/dry all areas with SBA. Don pullover shirt with set up. Pt donned underwear and pants with minimal assistance to pull up in the back. Pt donned bilateral socks with set up using sock aid. Minimal assistance required to don shoes using long shoe horn. Pt stood at sink for grooming tasks. Pt brushed teeth and combed hair with SBA. Pt fatigues easily with activity and requires occasional rest breaks during session. Pt sitting in chair wtih needs met after session. Functional [place] Measure 0=Not Assessed/NA 4=Minimal Assistance 1=Total Assistance 5=Supervision or Setup 2=Maximal Assistance 6=Modified [place] 3=Moderate Assistance 7=Complete IndependenceIRFPAI Quality Coding Scale 6 Independent with activity with or without an assistive device 5 Patient requires set up or clean up by helper. Patient completes activity by themselves 4 Supervision or touching assist (CGA). [place] provide cues , steadying assist 3 The helper provides less than half the effort to complete the activity 2 The helper provides more than half the effort to complete the activity 1 Dependent. The helper does all the effort to complete an activity 7 Patient refused to complete or attempt activity 9 The patient did not perform the activity before the current illness or injury 88 Not attempted due to Medical conditions or safety concerns Eating (FIM): 6 (nursing reports pt is able to feed self, manage containerse, and cut food without assistance.) Eating (QC): 6 Grooming (FIM): 5 Oral Hygiene (QC): 4 Bathing (FIM): 5 Shower/Bathe Self (QC): 4 Upper Body (FIM): 5 Upper Body Dressing (QC): 5 Lower Body Dressing (FIM): 4 Lower Body Dressing (QC): 4 On/Off Footwear (QC): 3 Toileting (FIM): 3 Toileting Hygiene (QC): 3 Toilet/Commode Transfer (FIM): 5 Toilet Transfer (QC): 4 Shower Transfer(FIM): 5 OT Short Term Goals Short Term Goals Time Frame: Mar 20, 2017 Bathing(FIM): 5 Toilet/Commode Transfer(FIM): 5 Shower Transfer(FIM): 5 Additional Short Term Goals: 2-Verbalize Understanding, 3-ImproveStrength/[place] Guadalupe 1=Demonstrate adherence to instructed precautions during ADL tasks. 2=Patient will verbalize/demonstrate understanding of assistive devices/ modifications for ADL. 3=Patient will improve strength/tolerance for activity to enable patient to perform ADL's. OT Usp Goals Full Stack Developer Goals Time Frame: Apr 03, 2017 Eating (FIM): 6 (met ) Eating (QC): 6 (6-MET) Groomin (not met) Oral Hygiene (QC): 6 (4-not met) Bathing(FIM): 6 (not met) Shower/Bathe Self (QC): 6 (4-not met) Upper Body Dressing(FIM): 6 (not met) Upper Body Dressing (QC): 6 (5-not met) Lower Body Dressing(FIM): 6 (not met) Lower Body Dressing (QC): 6 (3-not met) On/Off Footwear (QC): 6 (3-not met) Toileting(FIM): 6 (not met) Toileting Hygiene (QC): 6 (not met) Toilet/Commode Transfer(FIM): 6 (not met) Toilet/Commode Transfer (QC): 6 (4-not met) Shower Transfer(FIM): 6 (not met) Additional Goals: 2-Verbalize Understanding, 3-ImproveStrength/Jose Guadalupe 1=Demonstrate adherence to instructed precautions during ADL tasks. 2=Patient will verbalize/demonstrate understanding of assistive devices/ modifications for ADL. 3=Patient will improve strength/tolerance for activity to enable patient to perform ADL's. OT Education/Plan Problem List/Assessment Pt would benefit from skilled OT to increase his independence in basic self care to allow him to safely return home with and to decrease caregiver burden Discharge Recommendations Plan/Recommendations: Continue POC Treatment Plan/Plan of Care Patient would benefit from OT for education, treatment and training to promote independence in ADL's, mobility, safety and/or upper extremity function for ADL' s. Plan of Care: ADL Retraining, Functional Mobility, Group Exercise/Act as Ind ( education, exercise, activity tolerance, functional activities, socialization), UE Funct Exercise/Act, UE Neuromus Re-Ed/Coord Treatment Duration: Apr 03, 2017 Frequency: At least 5-7 days/Wk (IRF) (15 hours over 7 days) Estimated Hrs Per Day: 1.5 hours per day Agreement: Yes Rehab Potential: Good Time/GCodes Start Time: 08:00 Stop Time: 09:00 Total Time Billed (hr/min): 60 Billed Treatment Time 1 visit, ADLx4(60minutes) MEG BALDERAS OT Mar 25, 2017 11:47
--- NOTE | 2017-03-25 14:19 | Occupational Ther Daily Note ---
OT Current Status-Daily Note Subjective Pt sitting in chair, agrees to treatment. Mental Status/Objective Functional [place] Measure 0=Not Assessed/NA 4=Minimal Assistance 1=Total Assistance 5=Supervision or Setup 2=Maximal Assistance 6=Modified [place] 3=Moderate Assistance 7=Complete [place] ADL-Treatment Functional [place] Measure 0=Not Assessed/NA 4=Minimal Assistance 1=Total Assistance 5=Supervision or Setup 2=Maximal Assistance 6=Modified [place] 3=Moderate Assistance 7=Complete IndependenceIRFPAI Quality Coding Scale 6 Independent with activity with or without an assistive device 5 Patient requires set up or clean up by helper. Patient completes activity by themselves 4 Supervision or touching assist (CGA). [place] provide cues , steadying assist 3 The helper provides less than half the effort to complete the activity 2 The helper provides more than half the effort to complete the activity 1 Dependent. The helper does all the effort to complete an activity 7 Patient refused to complete or attempt activity 9 The patient did not perform the activity before the current illness or injury 88 Not attempted due to Medical conditions or safety concerns Other Treatment Pt sit to stand with supervision. Gait to therapy gym with FWW, no LOB noted. Assist to manage oxygen tank. Arm bike x10 minutes to increase overall strength and activity tolerance needed for ADLs and transfers. Pt completed task with moderate resistance and steady pace. No rest breaks needed. Pt returned to room and practiced getting in/out of bed. Pt able to perform sit <-> supine with SBA using bed rail. Skilled cues for technique. Pt states he will be getting a bed rail for home use. Pt transferred to chair SBA. Sitting in chair with needs met after session. OT Short Term Goals Short Term Goals Time Frame: Mar 20, 2017 Bathing(FIM): 5 Toilet/Commode Transfer(FIM): 5 Shower Transfer(FIM): 5 Additional Short Term Goals: 2-Verbalize Understanding, 3-ImproveStrength/Jose Guadalupe 1=Demonstrate adherence to instructed precautions during ADL tasks. 2=Patient will verbalize/demonstrate understanding of assistive devices/ modifications for ADL. 3=Patient will improve strength/tolerance for activity to enable patient to perform ADL's. OT Extractions Technologist Goals Extractions Technologist Goals Time Frame: Apr 03, 2017 Eating (FIM): 6 (met //) Eating (QC): 6 (6-MET) Groomin (not met) Oral Hygiene (QC): 6 (4-not met) Bathing(FIM): 6 (not met) Shower/Bathe Self (QC): 6 (4-not met) Upper Body Dressing(FIM): 6 (not met) Upper Body Dressing (QC): 6 (5-not met) Lower Body Dressing(FIM): 6 (not met) Lower Body Dressing (QC): 6 (3-not met) On/Off Footwear (QC): 6 (3-not met) Toileting(FIM): 6 (not met) Toileting Hygiene (QC): 6 (not met) Toilet/Commode Transfer(FIM): 6 (not met) Toilet/Commode Transfer (QC): 6 (4-not met) Shower Transfer(FIM): 6 (not met) Additional Goals: 2-Verbalize Understanding, 3-ImproveStrength/Jose Guadalupe 1=Demonstrate adherence to instructed precautions during ADL tasks. 2=Patient will verbalize/demonstrate understanding of assistive devices/ modifications for ADL. 3=Patient will improve strength/tolerance for activity to enable patient to perform ADL's. OT Education/Plan Problem List/Assessment Pt would benefit from skilled OT to increase his independence in basic self care to allow him to safely return home with and to decrease caregiver burden Discharge Recommendations Plan/Recommendations: Continue POC Treatment Plan/Plan of Care Patient would benefit from OT for education, treatment and training to promote independence in ADL's, mobility, safety and/or upper extremity function for ADL' s. Plan of Care: ADL Retraining, Functional Mobility, Group Exercise/Act as Ind ( education, exercise, activity tolerance, functional activities, socialization), UE Funct Exercise/Act, UE Neuromus Re-Ed/Coord Treatment Duration: Apr 03, 2017 Frequency: At least 5-7 days/Wk (IRF) (15 hours over 7 days) Estimated Hrs Per Day: 1.5 hours per day Agreement: Yes Rehab Potential: Good Time/GCodes Start Time: 13:00 Stop Time: 13:30 Total Time Billed (hr/min): 30 Billed Treatment Time 1 visit, FA(15minutes), EX(15minutes) MEG BALDERAS OT Mar 25, 2017 14:19
--- NOTE | 2017-03-25 15:15 | Physical Therapy Daily Note ---
PT Daily Note-Current Subjective Pt sitting in recliner upon arrival. Pt still feels as though he isn't ready to discharge despite demonstrating improvement with transfers. Pt agrees to PT. Pain Numeric Pain Scale: 8 Location: Right, Lower Location Body Site: Back Pain Description: Sharp Mental Status Patient Orientation: Person, Place, Time Attachments: Oxygen Transfers Functional [place] Measure 0=Not Assessed/NA 4=Minimal Assistance 1=Total Assistance 5=Supervision or Setup 2=Maximal Assistance 6=Modified [place] 3=Moderate Assistance 7=Complete IndependenceIRFPAI Quality Coding Scale 6 Independent with activity with or without an assistive device 5 Patient requires set up or clean up by helper. Patient completes activity by themselves 4 Supervision or touching assist (CGA). [place] provide cues , steadying assist 3 The helper provides less than half the effort to complete the activity 2 The helper provides more than half the effort to complete the activity 1 Dependent. The helper does all the effort to complete an activity 7 Patient refused to complete or attempt activity 9 The patient did not perform the activity before the current illness or injury 88 Not attempted due to Medical conditions or safety concerns Scootin Rollin Roll Left to Right (QC): 4 Supine to/from Sit: 5 Sit to/from Stand: 5 Sit to Lying (QC): 4 Sit to Stand (QC): 5 Weight Bearing Weight Bearing Restriction: Full Weight Bearing Location Restriction: LE Bilateral Wheelchair Training Does the Pt Use a Wheelchair?: No Treatments Pt again worked on bed mobility and transfers to increase muscle strength and pt 's confidence with tasks. Pt transferred back to recliner to rest at end of tx with all needs met. Assessment Current Status: Fair Progress Pt si improving with length of time to complete bed mobility as well as fluidity. PT Short Term Goals Short Term Goals Time Frame: Mar 18, 2017 Gait (FIM): 5 Gait Distance Comment: 200' Gait Level of Assist: 5 Gait Assistive Device: FWW PT Trade Mark Attorney Goals Assisted Goals PT Trade Mark Attorney Goals Time Frame: Apr 01, 2017 Transfers (B,C,W/C) (FIM): 6 Sit to Lying (QC): 6 Lying-Sitting on Side/Bed(QC): 6 Sit to Stand (QC): 6 Rollin Roll Left to Right (QC): 6 Chair/Dpq-cn-Avv[place] Xfer(QC): 6 Car Transfer (QC): 5 Gait (FIM): 6 Distance: 300' Walk 10 feet (QC): 6 Walk 10ft-Uneven Surface(QC): 6 Walk 50ft with 2 Turns (QC): 6 Walk 150 ft (QC): 6 Gait Assistive Device: FWW Stairs (FIM): 5 # of Steps: 12 1 Step (curb) (QC): 4 4 Steps (QC): 4 12 Steps (QC): 4 Stairs Level Of Assist: 5 PT Plan Problem List Problem List: Activity Tolerance, Functional Strength Treatment/Plan Treatment Plan: Continue Plan of Care Treatment Plan: Bed Mobility, Education, Functional Activity Jose Guadalupe, Functional Strength, Group Therapy, Gait, Safety, Therapeutic Exercise, Transfers Treatment Duration: Apr 01, 2017 Frequency: At least 5-7 days/Wk (IRF) Estimated Hrs Per Day: 1.5 hours per day Patient and/or Family Agrees t: Yes Safety Risks/Education Patient Education: Transfer Techniques, Correct Positioning, Safety Issues Teaching Recipient: Patient Teaching Methods: Discussion Response to Teaching: Verbalize Understanding Time/GCodes Time In: 1330 Time Out: 1400 Total Billed Treatment Time: 30 Total Billed Treatment visit, FA x2 (30m) CHINYERE STAUFFER APPRENTICE PLANT ATTENDANT Mar 25, 2017 15:15
[2017-03-25 18:16] VITALS: BP 114/71
[2017-03-25] MEDS: warFARin 5 MG (COUMADIN) TAB PO SCH (18:20)
[2017-03-25] MEDS: QUEtiapine 25 MG (SEROquel) TAB IMMEDIATE RELEASE PO SCH (20:55)
[2017-03-25] MEDS: MELATONIN 3 MG TABLET PO SCH (20:55)
[2017-03-25] MEDS: BACLOFEN 10 MG (LIORESAL) TAB PO SCH (20:55)
[2017-03-25] MEDS: POLYETHYLENE GLYCOL 17 GM (MIRALAX) PACK PO SCH (20:56)
--- NOTE | 2017-03-25 21:18 | PM & R (SOAP) Progress Note ---
Subjective Time Seen by Provider: 21:05 Subjective/Events-last exam Patient was seen in his room this evening Patient Min assist to SBA for transfers Continues to improve Objective Exam Last Set of Vital Signs Vital Signs Date Time Temp Pulse Resp B/P (MAP) Pulse Ox O2 Delivery O2 Flow Rate FiO2 03/25/17 21:16 Nasal Cannula 3.00 03/25/17 18:16 98.2 74 20 114/71 95 Capillary Refill : I&O Intake and Output 03/24/17 23:59 Intake Total 1660 ml Balance 1660 ml Intake Oral 1660 ml # Voids 5 General: Alert, Oriented X3, Cooperative, No Acute Distress HEENT: Atraumatic, PERRLA, EOMI, Mucous Memb Moist/[place], Other (02 by N/C in place) Neck: Supple, No JVD Lungs: Clear to Auscultation Heart: Regular Rate Abdomen: Normal Bowel Sounds, Soft, No Tenderness Extremities: No Edema Neuro: Sensation Intact, Other (strength 4+/5 except hip flexion 3+/5 Left ankle fused) Results Lab Laboratory Tests 03/23/17 05:00: Prothrombin Time 24.2H, INR Comment 2.2H 03/24/17 06:30: Prothrombin Time 23.4H, INR Comment 2.1H 03/25/17 04:45: Prothrombin Time 23.2H, INR Comment 2.1H Assessment/Plan Assessment 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 Chronic A FIB -Coumadin resumed=INR approaching therapeutic range-1.8 today OA s/p Bilateral TKRS Postoperative Ileus resolved Pain managemen Recurrent constipation -meds adjusted with improvement Insomnia-improved with change in H bed and addition of sleeper Plan CobtinuePT/OT/Pain management ST has signed off Appreciate DR Coello note Pain management meds again adjusted earlier this stay See orders Trend INR and adjust coumadin accordingly-INR now therapeutic Adjust meds for constipation as needed Patient reports BM with adjustment in meds New bed and sleeper for insomnia-with improvement noted Team Conference held earlier today-See report for full functional update and POC Tentative discharge set for 03-27-17 ROSI RODRIGES MD Mar 25, 2017 21:18
[2017-03-26 05:11] VITALS: BP 136/68
[2017-03-26] MEDS: HYDROcodone/APAP 5 MG/325 MG (LORTAB) TAB PO PRN (06:24)
[2017-03-26] MEDS: MULTIVIT W/MINERALS TAB (THERAGRAN M) PO SCH (06:24)
[2017-03-26] MEDS: predniSONE 10 MG TAB PO SCH (06:24)
[2017-03-26] MEDS: PANTOPRAZOLE 20 MG TABLET (PROTONIX) PO SCH (06:24)
[2017-03-26] MEDS: OMEGA 3 (FISH OIL) 1000 MG CAP PO SCH ×2 (06:24→17:06)
[2017-03-26] MEDS: KCL 10 MEQ TAB (MICRO K) PO SCH (06:26)
--- NOTE | 2017-03-26 07:55 | PM & R (SOAP) Progress Note ---
Subjective Time Seen by Provider: 07:30 Subjective/Events-last exam Patient was seen in his room this AM Patient SBA for transfers Has 02 at home Objective Exam Last Set of Vital Signs Vital Signs Date Time Temp Pulse Resp B/P (MAP) Pulse Ox O2 Delivery O2 Flow Rate FiO2 03/26/17 07:42 Nasal Cannula 3.00 03/26/17 05:11 97.8 76 20 136/68 93 Capillary Refill : I&O Intake and Output 03/25/17 23:59 Intake Total 1680 ml Balance 1680 ml Intake Oral 1680 ml # Voids 9 # Bowel Movements 1 General: Alert, Oriented X3, Cooperative, No Acute Distress HEENT: Atraumatic, PERRLA, EOMI, Mucous Memb Moist/[place], Other (02 by N/C in place) Neck: Supple, No JVD Lungs: Clear to Auscultation Heart: Regular Rate Abdomen: Normal Bowel Sounds, Soft, No Tenderness Extremities: No Edema Neuro: Sensation Intact, Other (strength 4+/5 except hip flexion 3+/5 Left ankle fused) Results Lab Laboratory Tests 03/24/17 06:30: Prothrombin Time 23.4H, INR Comment 2.1H 03/25/17 04:45: Prothrombin Time 23.2H, INR Comment 2.1H Assessment/Plan Assessment 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 Black [facility]-improving 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 Chronic steroid usage-on taper on this med for dermatologic condition as per patients from Coordinator Cardiopulmonary Services Janell GERARD 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 Chronic A FIB -Coumadin resumed=INR approaching therapeutic range-1.8 today OA s/p Bilateral TKRS Postoperative Ileus resolved Pain managemen Recurrent constipation -meds adjusted with improvement Insomnia-improved with change in H bed and addition of sleeper Plan CobtinuePT/OT/Pain management ST has signed off Appreciate DR Coello note Pain management meds again adjusted earlier this stay See orders Trend INR and adjust coumadin accordingly-INR now therapeutic Adjust meds for constipation as needed Patient reports BM with adjustment in meds New bed and sleeper for insomnia-with improvement noted Team Conference held yesterday-See report for full functional update and POC Tentative discharge set for tomorrow 03-27-17-Will confirm with ROSI STILES MD Mar 26, 2017 07:55
[2017-03-26] MEDS: MELOXICAM 7.5 MG (MOBIC) TABLET PO SCH (07:57)
[2017-03-26] MEDS: ASPIRIN E.C. 81 MG (ECOTRIN) TAB PO SCH (07:57)
[2017-03-26] MEDS: DIGOXIN 0.125 MG (LANOXIN) TAB PO SCH (07:57)
[2017-03-26] MEDS: FUROSEMIDE 40 MG (LASIX) TAB PO SCH (07:57)
[2017-03-26] MEDS: DOCUSATE SODIUM 100 MG (COLACE) CAP PO SCH ×2 (07:57→20:25)
[2017-03-26] MEDS: ATENOLOL 50 MG (TENORMIN) TAB PO SCH (07:57)
[2017-03-26] MEDS: MILK OF MAGNESIA 400 MG/5 ML 30 ML UDC PO SCH ×2 (07:58→20:26)
--- NOTE | 2017-03-26 08:11 | Progress Note (SOAP) ---
Subjective Time Seen by Provider: 08:05 Subjective/Events-last exam compression fraction. COPD Patient feels he is doing better. Patient Working at his problems. Patient feels he is getting stronger.. Patient slept best since he's been here last night Objective Exam Vital Signs Date Time Temp Pulse Resp B/P (MAP) Pulse Ox O2 Delivery O2 Flow Rate FiO2 03/26/17 07:42 Nasal Cannula 3.00 03/26/17 05:11 97.8 76 20 136/68 93 Nasal Cannula 3.00 03/25/17 21:16 Nasal Cannula 3.00 03/25/17 20:00 Nasal Cannula 3.00 03/25/17 18:16 98.2 74 20 114/71 95 Nasal Cannula 3.00 03/25/17 08:40 Nasal Cannula 3.00 I & O 03/26/17 07:00 Intake Total 1330 ml Balance 1330 ml Capillary Refill : General Appearance: No Apparent Distress, WD/WN HEENT: Normal ENT Inspection Neck: Normal Inspection Respiratory: No Accessory Muscle Use, No Respiratory Distress, Decreased Breath Sounds Cardiovascular: Irregularly Irregular Assessment/Plan Assessment/Plan Assess & Plan/Chief Complaint compression fracture. Atrial fibrillation. COPD using oxygen L1 compression fracture .. . 03/13/17. L1 compression fracture. Atrial fibrillation. COPD. Patient on oxygen.. . 03/16/17. Compression fracture. atrial fibrillation. COPD Patient does not feel he is of fall candidate. Patient put on Coumadin. . 03/17/17. Compression fracture. Atrial fib.. COPD. Patient having some pain. . . Compression fracture. A. fib. COPD. Patient slept last night. Patient having more endurance. Patient happy today . Compression fracture. A. fib. COPD. 03/19/17. Patient slept last night. Patient feels he is improving. . 03/20/17. Compression fracture. atrial fibrillation. New-onset constipation. COPD. Using oxygen.. . 03/23/17. Compression fracture. COPD. Insomnia. Muscle spasms. Increase Seroquel and put on melatonin Patient given muscle relaxant. . 03/24/17. Compression fracture. COPD. Insomnia better patient did sleep last night. Muscle spasms. . 03/25/17 compression fracture. Insomnia. COPD. Muscle spasms. Patient doing better since sleeping . Compression fracture. 03/26/17. Atrial fibrillation. COPD. Insomnia better. Patient working Clinical Quality Measures DVT/VTE Risk/Contraindication: Risk Factor Score Per Nursin RFS Level Per Nursing on Admit: 4+=Very High MIKO KELLY DO Mar 26, 2017 08:11
--- NOTE | 2017-03-26 09:07 | Occupational Ther Daily Note ---
OT Current Status-Daily Note Subjective No pain reported. Appearance Pt. up in chair. Agrees to shower. Mental Status/Objective Patient Orientation: Person Functional [place] Measure 0=Not Assessed/NA 4=Minimal Assistance 1=Total Assistance 5=Supervision or Setup 2=Maximal Assistance 6=Modified [place] 3=Moderate Assistance 7=Complete [place] Attachments: Oxygen ADL-Treatment Functional [place] Measure 0=Not Assessed/NA 4=Minimal Assistance 1=Total Assistance 5=Supervision or Setup 2=Maximal Assistance 6=Modified [place] 3=Moderate Assistance 7=Complete IndependenceIRFPAI Quality Coding Scale 6 Independent with activity with or without an assistive device 5 Patient requires set up or clean up by helper. Patient completes activity by themselves 4 Supervision or touching assist (CGA). [place] provide cues , steadying assist 3 The helper provides less than half the effort to complete the activity 2 The helper provides more than half the effort to complete the activity 1 Dependent. The helper does all the effort to complete an activity 7 Patient refused to complete or attempt activity 9 The patient did not perform the activity before the current illness or injury 88 Not attempted due to Medical conditions or safety concerns Grooming (FIM): 5 (SBA at sink in standing.) Bathing (FIM): 5 (SBA in shower to bathe all parts.) Shower/Bathe Self (QC): 4 Upper Body (FIM): 5 Upper Body Dressing (QC): 5 Lower Body Dressing (FIM): 4 (Pt. requires min assist to thread pants over feet , even with AE. Has difficulty not getting it caught. Pt. also has difficulty putting shoes on feet with AE. Uses shoe horn, but is unable to keep the back from bending over. Pt. states that his will assist him at home.) Lower Body Dressing (QC): 4 On/Off Footwear (QC): 4 Transfers (B, C, W/C) (FIM): 5 (SBA with walker due to oxygen tubing.) Shower Transfer(FIM): 5 Other Treatment Pt. requires frequent rest breaks during ADL tasks. Pt. has difficulty manipulating oxygen tubing, and often needs supervision with this. 02 sats at 93-94% throughout treatment. Pt. utilized AE but still has difficulty. States that his spouse can assist at home. Pt. able to ambulate back to chair after ADL treatment. All needs met. Pt. comfortable and states, "that felt good." Education OT Patient Education: Energy conservation, Modified ADL techniques, Progress toward Goal/Update tx plan, Purpose of tx/functional activities, Reviewed precautions, Rehab process, Transfer techniques, Use of adapted equipment Teaching Recipient: Patient Teaching Methods: Demonstration, Discussion Response to Teaching: Verbalize Understanding, Return Demonstration OT Short Term Goals Short Term Goals Time Frame: Mar 20, 2017 Bathing(FIM): 5 Toilet/Commode Transfer(FIM): 5 Shower Transfer(FIM): 5 Additional Short Term Goals: 2-Verbalize Understanding, 3-ImproveStrength/Jose Guadalupe 1=Demonstrate adherence to instructed precautions during ADL tasks. 2=Patient will verbalize/demonstrate understanding of assistive devices/ modifications for ADL. 3=Patient will improve strength/tolerance for activity to enable patient to perform ADL's. OT Shelter Goals Shelter Goals Time Frame: Apr 03, 2017 Eating (FIM): 6 (met ) Eating (QC): 6 (6-MET) Groomin (not met) Oral Hygiene (QC): 6 (4-not met) Bathing(FIM): 6 (not met) Shower/Bathe Self (QC): 6 (4-not met) Upper Body Dressing(FIM): 6 (not met) Upper Body Dressing (QC): 6 (5-not met) Lower Body Dressing(FIM): 6 (not met) Lower Body Dressing (QC): 6 (3-not met) On/Off Footwear (QC): 6 (3-not met) Toileting(FIM): 6 (not met) Toileting Hygiene (QC): 6 (not met) Toilet/Commode Transfer(FIM): 6 (not met) Toilet/Commode Transfer (QC): 6 (4-not met) Shower Transfer(FIM): 6 (not met) Additional Goals: 2-Verbalize Understanding, 3-ImproveStrength/Jose Guadalupe 1=Demonstrate adherence to instructed precautions during ADL tasks. 2=Patient will verbalize/demonstrate understanding of assistive devices/ modifications for ADL. 3=Patient will improve strength/tolerance for activity to enable patient to perform ADL's. OT Education/Plan Problem List/Assessment Assessment: Decreased Activ Tolerance, Impaired I ADL's, Impaired Self-Care Skills Pt would benefit from skilled OT to increase his independence in basic self care to allow him to safely return home with and to decrease caregiver burden Discharge Recommendations Plan/Recommendations: Continue POC Therapy D/C Recommendations: Home w/ Family Support, Occupational Therapy Home Care Equpiment Recommendations-D/C: Hip Kit Treatment Plan/Plan of Care Treatment,Training & Education: Yes Patient would benefit from OT for education, treatment and training to promote independence in ADL's, mobility, safety and/or upper extremity function for ADL' s. Plan of Care: ADL Retraining, Functional Mobility, Group Exercise/Act as Ind ( education, exercise, activity tolerance, functional activities, socialization), UE Funct Exercise/Act, UE Neuromus Re-Ed/Coord Treatment Duration: Apr 03, 2017 Frequency: At least 5-7 days/Wk (IRF) (15 hours over 7 days) Estimated Hrs Per Day: 1.5 hours per day Agreement: Yes Rehab Potential: Good Time/GCodes Start Time: 08:00 Stop Time: 09:00 Total Time Billed (hr/min): 60 Billed Treatment Time 1, ADL x 4 KELL HERNANDEZ OT Mar 26, 2017 09:07
--- NOTE | 2017-03-26 11:00 | Physical Therapy Daily Note ---
PT Daily Note-Current Subjective Pt sitting in recliner upon arrival. Pt reports continued pain that has been constant. Pt agrees to PT. Pain Numeric Pain Scale: 8 Location: Right, Lower Location Body Site: Back Pain Description: Sharp Mental Status Patient Orientation: Person, Place, Situation Attachments: Oxygen Transfers Functional [place] Measure 0=Not Assessed/NA 4=Minimal Assistance 1=Total Assistance 5=Supervision or Setup 2=Maximal Assistance 6=Modified [place] 3=Moderate Assistance 7=Complete IndependenceIRFPAI Quality Coding Scale 6 Independent with activity with or without an assistive device 5 Patient requires set up or clean up by helper. Patient completes activity by themselves 4 Supervision or touching assist (CGA). [place] provide cues , steadying assist 3 The helper provides less than half the effort to complete the activity 2 The helper provides more than half the effort to complete the activity 1 Dependent. The helper does all the effort to complete an activity 7 Patient refused to complete or attempt activity 9 The patient did not perform the activity before the current illness or injury 88 Not attempted due to Medical conditions or safety concerns Transfers (B, C, W/C) (FIM): 5 Scootin Rollin Roll Left to Right (QC): 5 Supine to/from Sit: 5 Sit to/from Stand: 6 Sit to Lying (QC): 5 Sit to Stand (QC): 5 Chair/Fdx-jw-Wdbdv Xfer(QC): 5 Bed to/from Chair: 5 Car Transfer (QC): 88 Pt didn't attempt car transfer due to no car present at this time but will score upon discharge tomorrow. Weight Bearing Weight Bearing Restriction: Full Weight Bearing Location Restriction: LE Bilateral Gait Training Does the Patient Walk?: Yes Gait (FIM): 5 Distance (FIM): 3=150 ft Distance: 350' Walk 10 feet (QC): 5 Walk 50 ft with 2 Turns(QC): 5 Walk 150 ft (QC): 5 Walking 10ft/uneven surface-QC: 5 Gait Level of Assist: 5 Gait Persons Needed: 1 Gait Assistive Device: FWW Pt walks with slow michelle but steady, no LOB. Pt fatigues and needs short rest break. Wheelchair Training Does the Pt Use a Wheelchair?: No Stair Training Stair Training: Handrails/: uses walker Stairs (FIM): 3 #of Steps: 4 1 Step (curb) (QC): 5 4 Steps (QC): 5 Stairs: Pattern: Step to Level of Assist: 5 Balance Picking up an Object (QC): 88 Special Test Comments Unsafe to complete at this time due to back restrictions. Pt has reed cleaner at home to merchandise pickup/receiving associate objects. Exercises NuStep Minutes: 15 NuStep Workload: 4 Treatments Pt transfers from recliner to standing using FWW at A. Pt completes bed mobility/transfers and rolling at A. Pt ambulates using FWW at A in hallway. Pt completed 4 step ups on deep stair using FWW like pt will use at home. Pt completes walk on uneven surface for at least 10' but did not pick object up off floor due to back restrictions given by surgeon. Pt returned to room to rest in recliner at end of tx with all needs met. Assessment Current Status: Fair Progress Pt has improved with activity tolerance, strength and mobility although needs bed rail for bed transfers and fatigues on longer ambulation. PT Short Term Goals Short Term Goals Time Frame: Mar 18, 2017 Gait (FIM): 5 Gait Distance Comment: 200' Gait Level of Assist: 5 Gait Assistive Device: FWW PT Quality Control Engineer Goals Correction Goals PT Correction Goals Time Frame: Apr 01, 2017 Transfers (B,C,W/C) (FIM): 6 Sit to Lying (QC): 6 Lying-Sitting on Side/Bed(QC): 6 Sit to Stand (QC): 6 Rollin Roll Left to Right (QC): 6 Chair/Sfd-db-Ooewy Xfer(QC): 6 Car Transfer (QC): 5 Gait (FIM): 6 Distance: 300' Walk 10 feet (QC): 6 Walk 10ft-Uneven Surface(QC): 6 Walk 50ft with 2 Turns (QC): 6 Walk 150 ft (QC): 6 Gait Assistive Device: FWW Stairs (FIM): 5 # of Steps: 12 1 Step (curb) (QC): 4 4 Steps (QC): 4 12 Steps (QC): 4 Stairs Level Of Assist: 5 PT Plan Problem List Problem List: Activity Tolerance, Safety, Transfer Treatment/Plan Treatment Plan: Continue Plan of Care Treatment Plan: Bed Mobility, Education, Functional Activity Jose Guadalupe, Functional Strength, Group Therapy, Gait, Safety, Therapeutic Exercise, Transfers Treatment Duration: Apr 01, 2017 Frequency: At least 5-7 days/Wk (IRF) Estimated Hrs Per Day: 1.5 hours per day Patient and/or Family Agrees t: Yes Safety Risks/Education Patient Education: Gait Training, Transfer Techniques, Steps, Reviewed Precautions, Correct Positioning, Safety Issues Teaching Recipient: Patient Teaching Methods: Discussion Response to Teaching: Verbalize Understanding Time/GCodes Time In: 1000 Time Out: 1100 Total Billed Treatment Time: 60 Total Billed Treatment visit, GT (15m), FA x2 (30m) & EX (15m) CHINYERE STAUFFER PUBLIC HEALTH MICROBIOLOGIST Mar 26, 2017 11:00
--- NOTE | 2017-03-26 15:13 | Occupational Ther Daily Note ---
OT Current Status-Daily Note Subjective No pain reported. Appearance Pt. up in chair. Agrees to work with OT. Mental Status/Objective Patient Orientation: Person, Place Functional [place] Measure 0=Not Assessed/NA 4=Minimal Assistance 1=Total Assistance 5=Supervision or Setup 2=Maximal Assistance 6=Modified [place] 3=Moderate Assistance 7=Complete [place] Attachments: Oxygen ADL-Treatment Functional [place] Measure 0=Not Assessed/NA 4=Minimal Assistance 1=Total Assistance 5=Supervision or Setup 2=Maximal Assistance 6=Modified [place] 3=Moderate Assistance 7=Complete IndependenceIRFPAI Quality Coding Scale 6 Independent with activity with or without an assistive device 5 Patient requires set up or clean up by helper. Patient completes activity by themselves 4 Supervision or touching assist (CGA). [place] provide cues , steadying assist 3 The helper provides less than half the effort to complete the activity 2 The helper provides more than half the effort to complete the activity 1 Dependent. The helper does all the effort to complete an activity 7 Patient refused to complete or attempt activity 9 The patient did not perform the activity before the current illness or injury 88 Not attempted due to Medical conditions or safety concerns Transfers (B, C, W/C) (FIM): 5 (Pt. requires SBA to stand up out of chair due to oxygen tubing.) Toilet/Commode Transfer (FIM): 5 Other Treatment Pt. ambulated to therapy gym with SBA. Tolerated bilateral UE exercises x 20 reps x 7 exercises each. Required frequent rest breaks. Completed exercises in all planes to increase overall strength and endurance with daily tasks. Pt. on 3 L 02. Became SOA, but sats at 93%. All needs met back in room. Pt. requested to use the bathroom. Ambulated to bathroom and transferred to toilet with SBA. All needs met and pt. with cord in bathroom. Tolerated treatment well. Education OT Patient Education: Exercise program, Modified ADL techniques, Progress toward Goal/Update tx plan, Purpose of tx/functional activities, Reviewed precautions, Rehab process, Transfer techniques Teaching Recipient: Patient Teaching Methods: Demonstration, Discussion Response to Teaching: Verbalize Understanding, Return Demonstration OT Short Term Goals Short Term Goals Time Frame: Mar 20, 2017 Bathing(FIM): 5 Toilet/Commode Transfer(FIM): 5 Shower Transfer(FIM): 5 Additional Short Term Goals: 2-Verbalize Understanding, 3-ImproveStrength/Jose Guadalupe 1=Demonstrate adherence to instructed precautions during ADL tasks. 2=Patient will verbalize/demonstrate understanding of assistive devices/ modifications for ADL. 3=Patient will improve strength/tolerance for activity to enable patient to perform ADL's. OT Retirement Goals Retirement Goals Time Frame: Apr 03, 2017 Eating (FIM): 6 (met ) Eating (QC): 6 (6-MET) Groomin (not met) Oral Hygiene (QC): 6 (4-not met) Bathing(FIM): 6 (not met) Shower/Bathe Self (QC): 6 (4-not met) Upper Body Dressing(FIM): 6 (not met) Upper Body Dressing (QC): 6 (5-not met) Lower Body Dressing(FIM): 6 (not met) Lower Body Dressing (QC): 6 (3-not met) On/Off Footwear (QC): 6 (3-not met) Toileting(FIM): 6 (not met) Toileting Hygiene (QC): 6 (not met) Toilet/Commode Transfer(FIM): 6 (not met) Toilet/Commode Transfer (QC): 6 (4-not met) Shower Transfer(FIM): 6 (not met) Additional Goals: 2-Verbalize Understanding, 3-ImproveStrength/Jose Guadalupe 1=Demonstrate adherence to instructed precautions during ADL tasks. 2=Patient will verbalize/demonstrate understanding of assistive devices/ modifications for ADL. 3=Patient will improve strength/tolerance for activity to enable patient to perform ADL's. OT Education/Plan Problem List/Assessment Assessment: Decreased Activ Tolerance, Decreased UE Strength, Impaired I ADL's , Impaired Self-Care Skills Pt would benefit from skilled OT to increase his independence in basic self care to allow him to safely return home with and to decrease caregiver burden Discharge Recommendations Plan/Recommendations: Continue POC Therapy D/C Recommendations: Home w/ Family Support, Occupational Therapy Home Care Treatment Plan/Plan of Care Treatment,Training & Education: Yes Patient would benefit from OT for education, treatment and training to promote independence in ADL's, mobility, safety and/or upper extremity function for ADL' s. Plan of Care: ADL Retraining, Functional Mobility, Group Exercise/Act as Ind ( education, exercise, activity tolerance, functional activities, socialization), UE Funct Exercise/Act, UE Neuromus Re-Ed/Coord Treatment Duration: Apr 03, 2017 Frequency: At least 5-7 days/Wk (IRF) (15 hours over 7 days) Estimated Hrs Per Day: 1.5 hours per day Agreement: Yes Rehab Potential: Good Time/GCodes Start Time: 14:30 Stop Time: 15:00 Total Time Billed (hr/min): 30 Billed Treatment Time 1, EX x 2 KELL HERNANDEZ OT Mar 26, 2017 15:13
--- NOTE | 2017-03-26 15:52 | Physical Therapy Daily Note ---
PT Daily Note-Current Subjective Pt sitting in recliner upon arrival. Pt appears irritated to start tx but agrees to PT. Pain Numeric Pain Scale: 8 Location: Right, Lower Location Body Site: Back Pain Description: Sharp Mental Status Patient Orientation: Person, Place, Situation Attachments: Oxygen Transfers Functional [place] Measure 0=Not Assessed/NA 4=Minimal Assistance 1=Total Assistance 5=Supervision or Setup 2=Maximal Assistance 6=Modified [place] 3=Moderate Assistance 7=Complete IndependenceIRFPAI Quality Coding Scale 6 Independent with activity with or without an assistive device 5 Patient requires set up or clean up by helper. Patient completes activity by themselves 4 Supervision or touching assist (CGA). [place] provide cues , steadying assist 3 The helper provides less than half the effort to complete the activity 2 The helper provides more than half the effort to complete the activity 1 Dependent. The helper does all the effort to complete an activity 7 Patient refused to complete or attempt activity 9 The patient did not perform the activity before the current illness or injury 88 Not attempted due to Medical conditions or safety concerns Scootin Sit to/from Stand: 5 Sit to Stand (QC): 5 Weight Bearing Weight Bearing Restriction: Full Weight Bearing Location Restriction: LE Bilateral Gait Training Does the Patient Walk?: Yes Distance (FIM): 3=150 ft Distance: 350' Walk 10 feet (QC): 5 Walk 50 ft with 2 Turns(QC): 5 Walk 150 ft (QC): 5 Walking 10ft/uneven surface-QC: 5 Gait Level of Assist: 5 Gait Persons Needed: 1 Gait Assistive Device: FWW Pt walks with slow michelle but steady, no LOB. Wheelchair Training Does the Pt Use a Wheelchair?: No Treatments Pt transferred from recliner to standing using FWW at [facility]. Pt uses restroom before leaving for tx. Pt ambulates using FWW at A to Therapy Gym to practice uneven surface again since pt's house has a lot of carpet. Pt continues ambulation in hallway before returning to room to rest. Pt rests in recliner at end of tx with all needs met. Assessment Current Status: Fair Progress Pt has made progress in Therapy with strengthening, mobility independence and safety and transfers. Pt does still struggle with fatigue. PT Short Term Goals Short Term Goals Time Frame: Mar 18, 2017 Gait (FIM): 5 Gait Distance Comment: 200' Gait Level of Assist: 5 Gait Assistive Device: FWW PT Biofuels Plant Construction Worker Goals [employer]els Plant Construction Worker Goals PT Group Home Goals Time Frame: Apr 01, 2017 Transfers (B,C,W/C) (FIM): 6 Sit to Lying (QC): 6 Lying-Sitting on Side/Bed(QC): 6 Sit to Stand (QC): 6 Rollin Roll Left to Right (QC): 6 Chair/Jri-oa-Jfxkd Xfer(QC): 6 Car Transfer (QC): 5 Gait (FIM): 6 Distance: 300' Walk 10 feet (QC): 6 Walk 10ft-Uneven Surface(QC): 6 Walk 50ft with 2 Turns (QC): 6 Walk 150 ft (QC): 6 Gait Assistive Device: FWW Stairs (FIM): 5 # of Steps: 12 1 Step (curb) (QC): 4 4 Steps (QC): 4 12 Steps (QC): 4 Stairs Level Of Assist: 5 PT Plan Problem List Problem List: Activity Tolerance Treatment/Plan Treatment Plan: Continue Plan of Care Treatment Plan: Bed Mobility, Education, Functional Activity Jose Guadalupe, Functional Strength, Group Therapy, Gait, Safety, Therapeutic Exercise, Transfers Treatment Duration: Apr 01, 2017 Frequency: At least 5-7 days/Wk (IRF) Estimated Hrs Per Day: 1.5 hours per day Patient and/or Family Agrees t: Yes Safety Risks/Education Patient Education: Gait Training, Transfer Techniques, Correct Positioning, Safety Issues Teaching Recipient: Patient Teaching Methods: Discussion Response to Teaching: Verbalize Understanding Time/GCodes Time In: 1330 Time Out: 1400 Total Billed Treatment Time: 30 Total Billed Treatment visit, GT (15m) & FA (15m) CHINYERE STAUFFER COMMISSIONS SPECIALIST Mar 26, 2017 15:52
[2017-03-26] MEDS: warFARin 5 MG (COUMADIN) TAB PO SCH (17:06)
[2017-03-26 18:06] VITALS: BP 143/84
[2017-03-26] MEDS ORDERED: MELA3TAB PO (18:30)
[2017-03-26] MEDS ORDERED: ZINC28PA TOP (18:30)
[2017-03-26] MEDS ORDERED: QUET25TA73 PO (18:30)
[2017-03-26] MEDS ORDERED: WARF5TAB PO (18:30)
[2017-03-26] MEDS ORDERED: BACL10TA PO (18:30)
[2017-03-26] MEDS ORDERED: HYDR-757 PO (18:30)
[2017-03-26] MEDS: MELATONIN 3 MG TABLET PO SCH (20:25)
[2017-03-26] MEDS: QUEtiapine 25 MG (SEROquel) TAB IMMEDIATE RELEASE PO SCH (20:25)
[2017-03-26] MEDS: BACLOFEN 10 MG (LIORESAL) TAB PO SCH (20:25)
[2017-03-26] MEDS: POLYETHYLENE GLYCOL 17 GM (MIRALAX) PACK PO SCH (20:26)
[2017-03-27] MEDS: HYDROcodone/APAP 5 MG/325 MG (LORTAB) TAB PO PRN ×3 (03:18→11:52)
[2017-03-27 05:30] VITALS: BP 134/72
[2017-03-27] MEDS: OMEGA 3 (FISH OIL) 1000 MG CAP PO SCH (06:24)
[2017-03-27] MEDS: PANTOPRAZOLE 20 MG TABLET (PROTONIX) PO SCH (06:24)
[2017-03-27] MEDS: MULTIVIT W/MINERALS TAB (THERAGRAN M) PO SCH (06:24)
[2017-03-27] MEDS: KCL 10 MEQ TAB (MICRO K) PO SCH (06:24)
--- NOTE | 2017-03-27 08:28 | Progress Note (SOAP) ---
Subjective Time Seen by Provider: 08:25 Subjective/Events-last exam compression fractures. Atrial fibrillation. INR above 2. Patient be discharged today. When patient came in he couldn't in. Patient walking out of facility Objective Exam Vital Signs Date Time Temp Pulse Resp B/P (MAP) Pulse Ox O2 Delivery O2 Flow Rate FiO2 03/27/17 05:30 97.1 81 22 134/72 91 Nasal Cannula 3.00 03/26/17 20:15 Nasal Cannula 3.00 03/26/17 18:53 Nasal Cannula 3.00 03/26/17 18:06 97.9 79 16 143/84 98 03/26/17 09:20 Nasal Cannula 3.00 I & O 03/27/17 07:00 Intake Total 1620 ml Balance 1620 ml Capillary Refill : General Appearance: No Apparent Distress, WD/WN HEENT: Normal ENT Inspection Neck: Normal Inspection, Non Tender Respiratory: No Accessory Muscle Use, No Respiratory Distress, Other (On oxygen ) Cardiovascular: Irregularly Irregular Gastrointestinal: non tender, soft Assessment/Plan Assessment/Plan Assess & Plan/Chief Complaint compression fracture. Atrial fibrillation. COPD using oxygen L1 compression fracture .. . 03/13/17. L1 compression fracture. Atrial fibrillation. COPD. Patient on oxygen.. . 03/16/17. Compression fracture. atrial fibrillation. COPD Patient does not feel he is of fall candidate. Patient put on Coumadin. . 03/17/17. Compression fracture. Atrial fib.. COPD. Patient having some pain. . . Compression fracture. A. fib. COPD. Patient slept last night. Patient having more endurance. Patient happy today . Compression fracture. A. fib. COPD. 03/19/17. Patient slept last night. Patient feels he is improving. . 03/20/17. Compression fracture. atrial fibrillation. New-onset constipation. COPD. Using oxygen.. . 03/23/17. Compression fracture. COPD. Insomnia. Muscle spasms. Increase Seroquel and put on melatonin Patient given muscle relaxant. . 03/24/17. Compression fracture. COPD. Insomnia better patient did sleep last night. Muscle spasms. . 03/25/17 compression fracture. Insomnia. COPD. Muscle spasms. Patient doing better since sleeping . Compression fracture. 03/26/17. Atrial fibrillation. COPD. Insomnia better. Patient working.. . 03/27/17. Compression fracture. Atrial fibrillation. COPD. Insomnia. Patient to be discharged today. Patient walking out and couldn't do this when he came in Clinical Quality Measures DVT/VTE Risk/Contraindication: Risk Factor Score Per Nursin RFS Level Per Nursing on Admit: 4+=Very High MIKO KELLY DO Mar 27, 2017 08:28
[2017-03-27] MEDS: DOCUSATE SODIUM 100 MG (COLACE) CAP PO SCH (08:40)
[2017-03-27] MEDS: FUROSEMIDE 40 MG (LASIX) TAB PO SCH (08:40)
[2017-03-27] MEDS: ATENOLOL 50 MG (TENORMIN) TAB PO SCH (08:40)
[2017-03-27] MEDS: DIGOXIN 0.125 MG (LANOXIN) TAB PO SCH (08:40)
[2017-03-27] MEDS: MELOXICAM 7.5 MG (MOBIC) TABLET PO SCH (08:40)
[2017-03-27] MEDS: ASPIRIN E.C. 81 MG (ECOTRIN) TAB PO SCH (08:41)
[2017-03-27] MEDS: MILK OF MAGNESIA 400 MG/5 ML 30 ML UDC PO SCH (08:43)
--- NOTE | 2017-03-27 08:56 | PM & R (SOAP) Progress Note ---
Subjective Time Seen by Provider: 07:45 Subjective/Events-last exam Patient was seen in his room this AM Concerned by what appears to be a small cyst over rt wrist mildly tender to touch.No erythema INR pending Patient SBA for transfers and patient set for discharge to home in [place] with family today. Objective Exam Last Set of Vital Signs Vital Signs Date Time Temp Pulse Resp B/P (MAP) Pulse Ox O2 Delivery O2 Flow Rate FiO2 03/27/17 05:30 97.1 81 22 134/72 91 Nasal Cannula 3.00 Capillary Refill : I&O Intake and Output 03/27/17 00:00 Intake Total 940 ml Balance 940 ml Intake Oral 940 ml # Voids 10 # Bowel Movements 1 General: Alert, Oriented X3, Cooperative, No Acute Distress HEENT: Atraumatic, PERRLA, EOMI, Mucous Memb Moist/[place], Other (02 by N/C in place) Neck: Supple, No JVD Lungs: Clear to Auscultation Heart: Regular Rate Abdomen: Normal Bowel Sounds, Soft, No Tenderness Extremities: No Edema Neuro: Sensation Intact, Other (strength 4+/5 except hip flexion 3+/5 Left ankle fused) Results Lab Laboratory Tests 03/25/17 04:45: Prothrombin Time 23.2H, INR Comment 2.1H 03/27/17 08:35: Assessment/Plan Assessment 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 Wayne JACOBSEN-improving 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 Chronic steroid usage-on taper on this med for dermatologic condition as per patients from Catering Administrative Assistant Janell GERARD 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
[2017-03-27 09:04] LABS: INR 2.3 (0.8-1.4); PROTHROMBIN TIME PATIENT 25.1 SEC (12.2-14.7)
[2017-03-27 12:00] VITALS: BP 134/72
--- NOTE | 2017-03-27 12:44 | Therapy Team Discharge Summary ---
Therapy Discharge Summary Discharge Recommendations Date of Discharge Therapy D/C Recommendations: Home w/ Family Support, Occupational Therapy Home Care Physical Therapy This patient was seen on ARU post surgical intervention on his back. Upon admit, he required mod assist with transfers and needed min assist with gait. Treatment consisted of functional transfer and gait training as well as strengthening, balance and safety. He did make functional gains but often needed extra encouragement to participate or to try to do for himself. At DC he was SBA with gait and transfers and remained on oxygen, as at his PLOF. It is recommended that [facility] PT to follow him at home to continue to progress his mobility, strength and safety. DC from skilled PT at this time. Goals were not fully met but to discharge home with follow up care recommended. PT Electronic Warfare Technical Goals Electronic Warfare Technical Goals PT Electronic Warfare Technical Goals Time Frame: Apr 01, 2017 Transfers (B,C,W/C) (FIM): 6 (unmet, SBA) Roll Left to Right (QC): 6 Sit to Lying (QC): 6 Lying-Sitting on Side/Bed(QC): 6 Sit to Stand (QC): 6 Chair/[id number]-Yzpbq Xfer(QC): 6 Car Transfer (QC): 5 Gait (FIM): 6 (unmet; SBA) Distance: 300' Walk 10 feet (QC): 6 Walk 10ft-Uneven Surface(QC): 6 Walk 50ft with 2 Turns (QC): 6 Walk 150 ft (QC): 6 Gait Assistive Device: FWW Stairs (FIM): 5 (unmet; scored a 3) # of Steps: 12 1 Step (curb) (QC): 4 4 Steps (QC): 4 12 Steps (QC): 4 Stairs Level Of Assist: 5 OT Electronic Warfare Technical Goals Chcf Goals Time Frame: Apr 03, 2017 Eating (FIM): 6 (met //) Eating (QC): 6 (6-MET) Oral Hygiene (QC): 6 (4-not met) Grooming(FIM): 6 (not met) Bathing(FIM): 6 (not met) Shower/Bathe Self (QC): 6 (4-not met) Upper Body Dressing(FIM): 6 (not met) Upper Body Dressing (QC): 6 (5-not met) Lower Body Dressing(FIM): 6 (not met) Lower Body Dressing (QC): 6 (3-not met) On/Off Footwear (QC): 6 (3-not met) Toileting(FIM): 6 (not met) Toileting Hygiene (QC): 6 (not met) Toilet/Commode Transfer(FIM): 6 (not met) Toilet/Commode Transfer (QC): 6 (4-not met) Shower Transfer(FIM): 6 (not met) Additional Goals: 2-Verbalize Understanding, 3-ImproveStrength/Jose Guadalupe 1=Demonstrate adherence to instructed precautions during ADL tasks. 2=Patient will verbalize/demonstrate understanding of assistive devices/ modifications for ADL. 3=Patient will improve strength/tolerance for activity to enable patient to perform ADL's. RAY DOAN PT Mar 27, 2017 12:44
--- NOTE | 2017-03-27 13:56 | Therapy Team Discharge Summary ---
Therapy Discharge Summary Discharge Recommendations Date of Discharge Therapy D/C Recommendations: Home w/ Family Support, Occupational Therapy Home Care Occupational Therapy Pt admitted to ARU s/p kyphoplasty. On admission pt required minimal assistance for transfers and bathing, and mod assist for LE dressing and toileting. Skilled OT intervention focused on ADL training, transfers, strengthening, adaptive equipment training, and home safety education. Pt progressed with therapy and by discharge is completing eating with modified independence, other UE ADLs and transfers with SBA and LE dressing with minimal assistance. Pt met goal for eating, but did not meet other medical terminologist goals of being modified independent. Pt being discharged home this date with spouse. D/C ARU OT at this time. PT Intermediate Goals Intermediate Goals PT Janitor Supervisor Goals Time Frame: Apr 01, 2017 Transfers (B,C,W/C) (FIM): 6 (unmet, SBA) Roll Left to Right (QC): 6 Sit to Lying (QC): 6 Lying-Sitting on Side/Bed(QC): 6 Sit to Stand (QC): 6 Chair/Lfw-cz-Suqes Xfer(QC): 6 Car Transfer (QC): 5 Gait (FIM): 6 (unmet; SBA) Distance: 300' Walk 10 feet (QC): 6 Walk 10ft-Uneven Surface(QC): 6 Walk 50ft with 2 Turns (QC): 6 Walk 150 ft (QC): 6 Gait Assistive Device: FWW Stairs (FIM): 5 (unmet; scored a 3) # of Steps: 12 1 Step (curb) (QC): 4 4 Steps (QC): 4 12 Steps (QC): 4 Stairs Level Of Assist: 5 OT Intermediate Goals Intermediate Goals Time Frame: Apr 03, 2017 Eating (FIM): 6 (met ) Eating (QC): 6 (6-MET) Oral Hygiene (QC): 6 (4-not met) Grooming(FIM): 6 (not met) Bathing(FIM): 6 (not met) Shower/Bathe Self (QC): 6 (4-not met) Upper Body Dressing(FIM): 6 (not met) Upper Body Dressing (QC): 6 (5-not met) Lower Body Dressing(FIM): 6 (not met) Lower Body Dressing (QC): 6 (3-not met) On/Off Footwear (QC): 6 (3-not met) Toileting(FIM): 6 (not met) Toileting Hygiene (QC): 6 (not met) Toilet/Commode Transfer(FIM): 6 (not met) Toilet/Commode Transfer (QC): 6 (4-not met) Shower Transfer(FIM): 6 (not met) Additional Goals: 2-Verbalize Understanding, 3-ImproveStrength/Jose Guadalupe 1=Demonstrate adherence to instructed precautions during ADL tasks. 2=Patient will verbalize/demonstrate understanding of assistive devices/ modifications for ADL. 3=Patient will improve strength/tolerance for activity to enable patient to perform ADL's. MEG BALDERAS OT Mar 27, 2017 13:56
== END 2017-03-27 12:00 | disposition home health service (06) | DRG 950 ==
LOC: ENPENDDIS 03-27 12:00
PROVIDERS: ADMIT Physical Medicine & Rehabilitation; ATTEND Physical Medicine & Rehabilitation
DX: S34.109D Unspecified injury to unspecified level of lumbar spinal cord, subsequent encounter (principal); S32.010D Wedge compression fracture of first lumbar vertebra, subsequent encounter for fracture with routine healing; M47.896 Other spondylosis, lumbar region; G60.9 Hereditary and idiopathic neuropathy, unspecified; J84.10 Pulmonary fibrosis, unspecified; I27.2 Other secondary pulmonary hypertension; I10 Essential (primary) hypertension; I48.2 Chronic atrial fibrillation; G47.33 Obstructive sleep apnea (adult) (pediatric); M19.90 Unspecified osteoarthritis, unspecified site; Z99.81 Dependence on supplemental oxygen; Z79.52 Long term (current) use of systemic steroids
CPT/HCPCS: 36415; 80053; 81000; 85025; 85610; 94760